=== PATIENT | female | born 1950 | race Caucasian/White ===

== ENCOUNTER 2022-03-19 16:47 | Inpatient (IN) ==
[2022-03-19] MEDS ORDERED: SODIUM CHLORIDE 0.9% 500 ML IV STA (17:27)
[2022-03-19] MEDS ORDERED: dilTIAZem HCl 5 MG/ML 5 ML VIAL IV STA ×2 (17:31→18:21)
--- NOTE | 2022-03-19 17:38 | Emergency Department Note ---
Impression & Plan Atrial flutter with rapid ventricular response, Left knee pain, Chest pain ED Provider Note NAME: SABI MATHEWS AGE: 71 SEX: F : 1950 ARRIVES VIA: Walk-In INFORMANT: Patient, ED PROVIDER(S): Stefano Soler DO CHIEF COMPLAINT: Palpitations HPI: The patient is a 71-year-old female who presented to the emergency department for an evaluation of palpitations.The patient states that she went to see her family doctor today because of left knee swelling and left knee pain. She was noted to have a high pulse rate and had an EKG done in the office. She was found to have significant tachycardia. Her family doctor called a tree expert to refer her to. She was sent home. She was called while she was at home and told to go directly to the emergency department for further evaluation rather than wait to see the tree expert. The patient denies having any chest pain or difficulty breathing. She denies having any abdominal pain or vomiting. She has had no recent weight loss. She has no history of cardiac dysrhythmia in the past. She has noticed that her left leg has been swollen. She has been trying to have this figured out for quite some time. She has a history of MS. She states the symptoms worsen with ambulation or movement. ROS: See above HPI for pertinent positives & negatives. A total of 10 systems reviewed and were otherwise negative. PAST MEDICAL HISTORY: See Below PAST SURGICAL HISTORY: See Below FAMILY HISTORY: See Below SOCIAL HISTORY: See Below HOME MEDICATIONS: See Below ALLERGIES: See Below VITALS: See Below PHYSICAL EXAMINATION: GENERAL: Patient is awake alert in no acute distress patient is resting comfortably and showing no signs of anxiety EYES: The conjunctivae are clear. The pupils are round and reactive. EARS, NOSE, MOUTH AND THROAT: The nose is without any evidence of any deformity. Mucous membranes are moist. Tongue is midline. NECK: The neck is nontender and supple. RESPIRATORY: Normal respiratory effort is noted there is no evidence of wheezing rhonchi or rales CARDIOVASCULAR: Tachycardic but regular heart sounds are noted auscultation. There is no definite murmur. GASTROINTESTINAL: The abdomen is soft. Abdomen is nontender. MUSCULOSKELETAL/EXTREMITIES: There is no evidence of gross deformity full range of motion is noted in the hips and shoulders. SKIN: There is tenderness noted throughout the left leg. There was pedal edema on the left leg. Pulses were symmetric in both feet. NEUROLOGIC: Patient is awake alert and oriented x3 MEDICAL DECISION MAKING: The patient is a 71-year-old female who presented to the emergency department for atrial fibrillation. She has no history of dysrhythmia. The patient was treated with IV fluids and IV Cardizem in the emergency department. She was also treated with IV heparin and IV magnesium. She was reevaluated multiple times. She did complain of chest discomfort at 1 point and an EKG was repeated. It did show new T wave versions. The patient did not have any significant hypoxia or shortness of breath but given her symptoms it was felt that she may benefit from IV heparin. I discussed the patient's laboratory and radiographic studies with her. I also discussed the diagnosis of atrial fibrillation with her and her significant other. She was feeling much better on subsequent reevaluation. I discussed her case with the on-call [facility]. They have agreed to evaluate the patient in the emergency department for further management and disposition. Triage Nursing notes reviewed. Prior medical records reviewed Vital Signs: reviewed and remarkable for elevated blood pressure and tachycardia. Differential diagnosis: Premature contractions, electrolyte abnormality, cardiac dysrhythmia, thyroid dysfunction, pulmonary embolism, infection, gastrointestinal, as well as other pathologies. ER treatment provided: See below Diagnostics interpreted by me: ECG: EKG was obtained in the emergency department. My interpretation is atrial flutter at 154 bpm. Some variability was noted with the beat to beat. There is diffuse ST segment depressions noted. No previous tracing was available for comparison. A second EKG was obtained in the emergency department. My interpretation is atrial flutter with variable block at 107 bpm. Nonspecific T wave abnormalities were noted anteriorly. This was compared to the earlier tracing. The T wave abnormalities are new compared to the earlier tracing. Cardiac Monitoring: An order was placed for continuous cardiac monitoring. The monitor shows a rate of 110 bpm with atrial fibrillation with RVR Laboratory studies: As stated above and show below. Imaging studies: See below Consultation(s): Discussed this case with Alyce who is on-call for the [facility] group. ED COURSE: Procedures: none Critical Care: I have personally spent greater than 55 minutes of critical care time in the direct management of this patient. This includes bedside care, interpretation of diagnostic studies, and testing, discussion with consultants, patient, and family members, and other required patient management activities. This 55 minutes is in excess of all separately billable procedures. Past Med/Surg History Medical History (Updated 03/19/22 @ 23:11 by Stefano Soler DO) High cholesterol Hypertension Major depression Multiple sclerosis Osteoporosis Surgical History (Updated 03/19/22 @ 20:40 by Alyce Jorge PA-C) History of breast implant History of colonoscopy History of shoulder surgery R total shoulder replacement Family History (Updated 03/19/22 @ 19:01 by Alyce Jorge PA-C) Mother Lung cancer Father , 59 [place] Myocardial infarction Sister , 40 Lung cancer Social History (Updated 03/19/22 @ 20:37 by Alyce Jorge PA-C) Smoking Status: Never smoker Hx Alcohol Use: Yes Alcohol type: wine Alcohol Intake Frequency: Monthly or Less Hx Substance Use: No Preferred Language: Lithuanian Folder And Notcher Required: No Beliefs That Will Affect Care: None marital status: Current Living Situation: Spouse current occupational status: retired Other Information That Helps Us Care for You: No Feels Safe at Home: Yes Safety Concerns: Feels Safe At This Time Assistive Devices: Cane and Contacts Allergies Allergies Allergy/AdvReac Type Severity Reaction Status Date / Time No Known Allergies Allergy Unverified 03/19/22 19:02 Home Meds Home Medications Medication Instructions Recorded Confirmed alendronate 70 mg tablet 70 mg PO VALENZUELA 03/19/22 03/19/22 aspirin 81 mg tablet,delayed 81 mg PO DAILY 03/19/22 03/19/22 release atorvastatin 10 mg tablet 10 mg PO Q2D 03/19/22 03/19/22 baclofen 10 mg tablet 10 mg PO BID PRN 03/19/22 03/19/22 hydrochlorothiazide 12.5 mg capsule 12.5 mg PO DAILY 03/19/22 03/19/22 lisinopril 30 mg tablet 30 mg PO DAILY 03/19/22 03/19/22 oxycodone-acetaminophen 5 mg-325 1 tab PO Q6H PRN 03/19/22 03/19/22 mg tablet sertraline 25 mg tablet 25 mg PO DAILY 03/19/22 03/19/22 Results & Data (ED) Vital Signs Vital Signs - 24 hr 03/19/22 17:04 03/19/22 17:30 03/19/22 17:35 Temperature 36.6 C Temperature Source Temporal Artery Scan Pulse Rate 161 H 159 H Pulse Rate [Apical] Pulse Rate from SpO2 Sensor Pulse Rhythm Regular Pulse Strength Normal Respiratory Rate 16 18 Respiratory Effort / Characteristics Non-Labored Respiratory Depth Normal Blood Pressure 141/92 H Blood Pressure [Right Arm] Blood Pressure Mean 108 Blood Pressure Mean [Right Arm] Pulse Oximetry 97 Oxygen Delivery Method Room Air Room Air Sepsis Recent Fever Within 48 Hours No Sepsis New/Unexplained Change in Mental Status N/A Sepsis Action Taken by Nursing No Action Required 03/19/22 17:39 03/19/22 18:00 03/19/22 18:13 Temperature Temperature Source Pulse Rate 149 H 106 H Pulse Rate [Apical] 120 H Pulse Rate from SpO2 Sensor Pulse Rhythm Pulse Strength Respiratory Rate 23 18 16 Respiratory Effort / Characteristics Respiratory Depth Blood Pressure 167/119 H Blood Pressure [Right Arm] 181/139 H Blood Pressure Mean 135 Blood Pressure Mean [Right Arm] 153 Pulse Oximetry 95 95 95 Oxygen Delivery Method Room Air Sepsis Recent Fever Within 48 Hours Sepsis New/Unexplained Change in Mental Status Sepsis Action Taken by Nursing 03/19/22 18:14 03/19/22 18:30 03/19/22 18:31 Temperature Temperature Source Pulse Rate 121 H 112 H Pulse Rate [Apical] Pulse Rate from SpO2 Sensor 123 H 119 H Pulse Rhythm Pulse Strength Respiratory Rate 15 18 Respiratory Effort / Characteristics Respiratory Depth Blood Pressure 181/139 H 158/98 H Blood Pressure [Right Arm] Blood Pressure Mean 153 118 Blood Pressure Mean [Right Arm] Pulse Oximetry 94 94 Oxygen Delivery Method Sepsis Recent Fever Within 48 Hours Sepsis New/Unexplained Change in Mental Status Sepsis Action Taken by Usp Medications Current Medication List: was personally reviewed by me Laboratory Data Attestation: I reviewed the patient's lab results. Result diagrams: 03/19/22 17:24 03/19/22 17:24 Lab Results 03/19/22 03/19/22 03/19/22 Range/Units 17:24 17:24 17:24 WBC 7.24 (4.8-10.8) K/uL RBC 4.65 (4.2-5.4) M/uL Hgb 14.0 (12.0-16.0) g/dL Hct 42.7 (37-47) % MCV 91.8 (80-100) fL MCH 30.1 (25-34) pg MCHC 32.8 (32-36) g/dL RDW Std Deviation 50.7 H (36.4-46.3) fL RDW Coeff of Michael 15.0 H (11.5-14.5) % Plt Count 348 (130-400) K/uL MPV 10.1 (7.4-10.4) fL Immature Gran % (Auto) 0.4 % Neut % (Auto) 57.1 % Lymph % (Auto) 26.4 % [place] % (Auto) 11.3 % Eos % (Auto) 4.1 % Baso % (Auto) 0.7 % Neut # (Auto) 4.13 (1.4-6.5) K/uL Lymph # (Auto) 1.91 (1.2-3.4) K/uL [place] # (Auto) 0.82 H (0.11-0.59) K/uL Eos # (Auto) 0.30 (0-0.5) K/uL Baso # (Auto) 0.05 (0-0.2) K/uL Immature Gran # (Auto) 0.03 H (0.00-0.02) K/uL ESR (0-30) mm/hr PT 11.1 (9.0-12.0) Seconds INR 1.0 (0.9-1.1) APTT 31.8 H (21.0-31.0) Seconds PTT Ratio 1.2 Sodium (136-145) mmol/L Potassium (3.5-5.1) mmol/L Chloride (98-107) mmol/L Carbon Dioxide (21-32) mmol/L Anion Gap (3-11) BUN (6-23) mg/dl Creatinine (0.6-1.2) mg/dl Est Cr Clr Drug Dosing ml/min Est GFR ( Amer) ml/min Est GFR (Non-Af Amer) ml/min BUN/Creatinine Ratio (10-20) Glucose (70-99(Fasting)) mg/dl Calcium (8.5-10.1) mg/dl Magnesium (1.7-2.4) mg/dl Total Bilirubin (0.2-1.0) mg/dl AST (13-39) U/L ALT (7-52) U/L Alkaline Phosphatase (34-104) U/L Troponin I High Sens 28.7 H (0-14) pg/ml Total Protein (6.0-8.3) gm/dl Albumin (3.4-5.0) gm/dl Globulin (2.5-4.0) gm/dl Albumin/Globulin Ratio (0.9-2) Lipase (11-82) U/L TSH (0.300-4.500) uIu/ml SARS-CoV-2, RNA, NAAT (NEGATIVE) 03/19/22 03/19/22 03/19/22 Range/Units 17:24 17:24 17:24 WBC (4.8-10.8) K/uL RBC (4.2-5.4) M/uL Hgb (12.0-16.0) g/dL Hct (37-47) % MCV (80-100) fL MCH (25-34) pg MCHC (32-36) g/dL RDW Std Deviation (36.4-46.3) fL RDW Coeff of Michael (11.5-14.5) % Plt Count (130-400) K/uL MPV (7.4-10.4) fL Immature Gran % (Auto) % Neut % (Auto) % Lymph % (Auto) % [place] % (Auto) % Eos % (Auto) % Baso % (Auto) % Neut # (Auto) (1.4-6.5) K/uL Lymph # (Auto) (1.2-3.4) K/uL [place] # (Auto) (0.11-0.59) K/uL Eos # (Auto) (0-0.5) K/uL Baso # (Auto) (0-0.2) K/uL Immature Gran # (Auto) (0.00-0.02) K/uL ESR 22 (0-30) mm/hr PT (9.0-12.0) Seconds INR (0.9-1.1) APTT (21.0-31.0) Seconds PTT Ratio Sodium 140 (136-145) mmol/L Potassium 3.9 (3.5-5.1) mmol/L Chloride 107 (98-107) mmol/L Carbon Dioxide 24 (21-32) mmol/L Anion Gap 9 (3-11) BUN 28 H (6-23) mg/dl Creatinine 0.79 (0.6-1.2) mg/dl Est Cr Clr Drug Dosing 73.4 ml/min Est GFR ( Amer) 88.5 ml/min Est GFR (Non-Af Amer) 76.4 ml/min BUN/Creatinine Ratio 35.4 H (10-20) Glucose 121 H (70-99(Fasting)) mg/dl Calcium 9.5 (8.5-10.1) mg/dl Magnesium 2.0 (1.7-2.4) mg/dl Total Bilirubin 0.6 (0.2-1.0) mg/dl AST 18 (13-39) U/L ALT 24 (7-52) U/L Alkaline Phosphatase 66 (34-104) U/L Troponin I High Sens (0-14) pg/ml Total Protein 7.1 (6.0-8.3) gm/dl Albumin 4.3 (3.4-5.0) gm/dl Globulin 2.8 (2.5-4.0) gm/dl Albumin/Globulin Ratio 1.5 (0.9-2) Lipase 11 (11-82) U/L TSH 4.426 (0.300-4.500) uIu/ml SARS-CoV-2, RNA, NAAT (NEGATIVE) 03/19/22 Range/Units 17:44 WBC (4.8-10.8) K/uL RBC (4.2-5.4) M/uL Hgb (12.0-16.0) g/dL Hct (37-47) % MCV (80-100) fL MCH (25-34) pg MCHC (32-36) g/dL RDW Std Deviation (36.4-46.3) fL RDW Coeff of Michael (11.5-14.5) % Plt Count (130-400) K/uL MPV (7.4-10.4) fL Immature Gran % (Auto) % Neut % (Auto) % Lymph % (Auto) % [place] % (Auto) % Eos % (Auto) % Baso % (Auto) % Neut # (Auto) (1.4-6.5) K/uL Lymph # (Auto) (1.2-3.4) K/uL [place] # (Auto) (0.11-0.59) K/uL Eos # (Auto) (0-0.5) K/uL Baso # (Auto) (0-0.2) K/uL Immature Gran # (Auto) (0.00-0.02) K/uL ESR (0-30) mm/hr PT (9.0-12.0) Seconds INR (0.9-1.1) APTT (21.0-31.0) Seconds PTT Ratio Sodium (136-145) mmol/L Potassium (3.5-5.1) mmol/L Chloride (98-107) mmol/L Carbon Dioxide (21-32) mmol/L Anion Gap (3-11) BUN (6-23) mg/dl Creatinine (0.6-1.2) mg/dl Est Cr Clr Drug Dosing ml/min Est GFR ( Amer) ml/min Est GFR (Non-Af Amer) ml/min BUN/Creatinine Ratio (10-20) Glucose (70-99(Fasting)) mg/dl Calcium (8.5-10.1) mg/dl Magnesium (1.7-2.4) mg/dl Total Bilirubin (0.2-1.0) mg/dl AST (13-39) U/L ALT (7-52) U/L Alkaline Phosphatase (34-104) U/L Troponin I High Sens (0-14) pg/ml Total Protein (6.0-8.3) gm/dl Albumin (3.4-5.0) gm/dl Globulin (2.5-4.0) gm/dl Albumin/Globulin Ratio (0.9-2) Lipase (11-82) U/L TSH (0.300-4.500) uIu/ml SARS-CoV-2, RNA, NAAT NEGATIVE (NEGATIVE) Administered Medications Heparin Sodium/Dextrose (Heparin Sodium/Dextrose) 25,000 units in 500 mls @ 25 mls/hr IV .Q20H [facility]; Protocol Stop: 04/18/22 18:59 Last Admin: 03/19/22 20:30 Dose: 850 units/hr, 17 mls/hr Documented by: [id number] Cosigned by: [id number] Metoprolol Tartrate (Metoprolol Tartrate 1 Mg/Ml Vial) 5 mg IV Q4 PRN PRN Reason: tachycardia Stop: 04/18/22 21:46 Last Admin: 03/19/22 22:06 Dose: 5 mg Documented by: [id number] Discontinued Medications Aspirin (Aspirin Chew 324 Mg) 324 mg PO NOW STA Stop: 03/19/22 18:01 Last Admin: 03/19/22 18:06 Dose: 324 mg Documented by: [id number] Diltiazem HCl (Diltiazem Hcl 5 Mg/Ml 5 Ml Vial) 10 mg IV NOW STA Stop: 03/19/22 17:32 Last Admin: 03/19/22 17:39 Dose: 10 mg Documented by: [id number] Cosigned by: [id number] Diltiazem HCl (Diltiazem Hcl 5 Mg/Ml 5 Ml Vial) 10 mg IV NOW STA Stop: 03/19/22 18:22 Last Admin: 03/19/22 18:45 Dose: 10 mg Documented by: [id number] Cosigned by: [id number] Heparin Sodium/Dextrose (Heparin Iv Adult Wt-Based Standard *No* Bolus Protocol) 1 ea N/A ONE ONE; Protocol Stop: 03/19/22 18:45 Last Admin: 03/19/22 20:30 Dose: 1 ea Documented by: [id number] Sodium Chloride (Nss) 500 mls @ 999 mls/hr IV .Q31M STA Stop: 03/19/22 17:57 Last Infusion: 03/19/22 18:14 Dose: 0 mls/hr Documented by: [id number] Admin: 03/19/22 17:39 Dose: 999 mls/hr Documented by: [id number] Magnesium Sulfate/Dextrose (Magnesium Sulfate / D5w) 1 gm in 100 mls @ 100 mls/hr IV NOW STA Stop: 03/19/22 19:00 Last Infusion: 03/19/22 20:00 Dose: 0 mls/hr Documented by: [id number] Admin: 03/19/22 18:06 Dose: 100 mls/hr Documented by: [id number] Sodium Chloride (Nss 1000ml) 500 mls @ 999 mls/hr IV .Q31M ONE Stop: 03/19/22 18:51 Last Infusion: 03/19/22 20:38 Dose: 0 mls/hr Documented by: [id number] Admin: 03/19/22 18:45 Dose: 999 mls/hr Documented by: [id number] Metoprolol Tartrate (Metoprolol Tartrate 25 Mg Tab) 25 mg PO NOW STA Stop: 03/19/22 21:10 Last Admin: 03/19/22 21:27 Dose: 25 mg Documented by: [id number] Metoprolol Tartrate (Metoprolol Tartrate 1 Mg/Ml Vial) Confirm Administered Dose 5 mg IV .STK-MED ONE Stop: 03/19/22 22:01 Last Admin: 03/19/22 22:11 Dose: Not Given Documented by: [id number] Metoprolol Tartrate (Metoprolol Tartrate 1 Mg/Ml Vial) 5 mg IV NOW STA Stop: 03/19/22 22:41 Last Admin: 03/19/22 22:47 Dose: 5 mg Documented by: [id number] Imaging Data Radiologist's Impression: Chest X-Ray 03/19/22 17:10 XR chest 1V portable CLINICAL HISTORY: Atypical chest pain TECHNIQUE: Single frontal radiograph of the chest was obtained. Comparison: None available at the time of this dictation. FINDINGS: Bilateral breast implants are seen. Partial visualization of a right shoulder arthroplasty. The cardiomediastinal silhouette is normal. The lungs are clear. No evidence of pleural effusion or pneumothorax. IMPRESSION: No acute chest disease. ACT 112: Negative or not required by law. Electronically signed by: Flo Dunaway M.D. 03/19/2022 5:49 PM Venous Doppler Study 03/19/22 17:28 US venous doppler LE LT CLINICAL HISTORY: Swelling TECHNIQUE: Left lower extremity real-time compression venous ultrasound with Color Doppler imaging. Utilizing real-time ultrasonic imaging multiple real time high-resolution ultrasonic images with compression and noncompression maneuvers of the deep venous system in addition to color doppler imaging were performed from the common femoral vein through the proximal calf veins. COMPARISON: None available at the time of this dictation. FINDINGS: Currently there is normal compressibility of the deep venous system from the common femoral vein through the proximal calf veins. No current evidence of acute thrombosis is identified. Partially visualized is a joint effusion in the left medial knee. Impression: No evidence of deep venous thrombus. ACT 112: Negative or not required by law. Electronically signed by: Flo Dunaway M.D. 03/19/2022 8:11 PM Discharge Plan Visit Data Chief Complaint: Cardiac Assessment Stated Complaint: REF FROM [facility], KNEE PAIN ED Provider: Stefano Soler Discharge Problem: Atrial flutter with rapid ventricular response, Left knee pain, Chest pain Patient Disposition: Admitted As Inpatient Discharge Instructions Interventions: ED Discharge Assessment Last Done: 03/19/22 21:40
[2022-03-19 17:46] LABS: Basophils # (auto) 0.05 K/uL (0-0.2); Basophils % (auto) 0.7 %; Eosinophils % (auto) 4.1 %; Hematocrit (blood only) 42.7 % (37-47); Immature Granulocytes # (auto) 0.03 K/uL (0.00-0.02); Immature Granulocytes % (auto) 0.4 %; Lymphocytes # (auto) 1.91 K/uL (1.2-3.4); Lymphocytes % (auto) 26.4 %; Mean Corpuscular Hemoglobin 30.1 pg (25-34); Mean Corpuscular Hgb Conc 32.8 g/dL (32-36); Mean Corpuscular Volume 91.8 fL (80-100); Mean Platelet Volume 10.1 fL (7.4-10.4); Monocytes # (auto) 0.82 K/uL (0.11-0.59); Monocytes % (auto) 11.3 %; Neutrophils # (auto) 4.13 K/uL (1.4-6.5); Neutrophils % (auto) 57.1 %; Platelet Count 348 K/uL (130-400); RDW Standard Deviation 50.7 fL (36.4-46.3); Red Blood Count 4.65 M/uL (4.2-5.4); White Blood Count 7.24 K/uL (4.8-10.8)
--- NOTE | 2022-03-19 17:50 | XRay Report ---
XR chest 1V portable CLINICAL HISTORY: Atypical chest pain TECHNIQUE: Single frontal radiograph of the chest was obtained. Comparison: None available at the time of this dictation. FINDINGS: Bilateral breast implants are seen. Partial visualization of a right shoulder arthroplasty. The cardi omediastinal silhouette is normal. The lungs are clear. No evidence of pleural effusion or pneumothor ax. IMPRESSION: No acute chest disease. ACT 112: Negative or not required by law. Electronically signed by: Flo Dunaway M.D. 03/19/2022 5:49 PM
[2022-03-19] MEDS ORDERED: ASPIRIN CHEW 324 MG PO STA (18:00)
[2022-03-19] MEDS ORDERED: MAGNESIUM SULFATE / D5W 1 GM/100 ML BAG IV STA (18:01)
[2022-03-19 18:10] LABS: Partial Thromboplastin Ratio 1.2; Partial Thromboplastin Time 31.8 Seconds (21.0-31.0); Prothrombin Time 11.1 Seconds (9.0-12.0)
[2022-03-19 18:15] LABS: Albumin Globulin Ratio 1.5 (0.9-2); Albumin Level 4.3 gm/dl (3.4-5.0); BUN Creatinine Ratio 35.4 (10-20); Bilirubin,Total 0.6 mg/dl (0.2-1.0); Calcium 9.5 mg/dl (8.5-10.1); Creatinine Clr Calc Pharmacy 73.4 ml/min; Est GFR (African American) 88.5 ml/min; Est GFR (Non-African American) 76.4 ml/min; Globulin 2.8 gm/dl (2.5-4.0); Potassium 3.9 mmol/L (3.5-5.1); Total Protein 7.1 gm/dl (6.0-8.3)
[2022-03-19] MEDS ORDERED: SODIUM CHLORIDE 0.9% 1000ML 500 ML IV ONE (18:21)
[2022-03-19] MEDS ORDERED: Heparin IV Adult Wt-Based Standard *NO* Bolus Protocol ONE (18:44)
--- NOTE | 2022-03-19 20:12 | Ultrasound Report ---
US venous doppler LE LT CLINICAL HISTORY: Swelling TECHNIQUE: Left lower extremity real-time compression venous ultrasound with Color Doppler imaging. U tilizing real-time ultrasonic imaging multiple real time high-resolution ultrasonic images with compr ession and noncompression maneuvers of the deep venous system in addition to color doppler imaging we re performed from the common femoral vein through the proximal calf veins. COMPARISON: None available at the time of this dictation. FINDINGS: Currently there is normal compressibility of the deep venous system from the common femoral vein thro ugh the proximal calf veins. No current evidence of acute thrombosis is identified. Partially visuali zed is a joint effusion in the left medial knee. Impression: No evidence of deep venous thrombus. ACT 112: Negative or not required by law. Electronically signed by: Flo Dunaway M.D. 03/19/2022 8:11 PM
[2022-03-19] MEDS: HEPARIN SODIUM/DEXTROSE 25,000 UNITS/500 ML BAG IV SCH (20:30)
--- NOTE | 2022-03-19 20:34 | XRay Report ---
XR knee LT 1 or 2V routine CLINICAL HISTORY: swelling, pain TECHNIQUE: 2 views of the left knee were obtained. Comparison: None available at the time of this dictation. FINDINGS: There is no evidence of an acute fracture. Degenerative changes are seen most pronounced in the dunbar lofemoral compartment. A small suprapatellar effusion is seen. No soft tissue abnormality is seen. IMPRESSION: Degenerative changes and joint effusion without evidence of acute abnormality. ACT 112: Negative or not required by law. Electronically signed by: Flo Dunaway M.D. 03/19/2022 8:33 PM
--- NOTE | 2022-03-19 20:45 | History & Physical Report ---
Date of Service March 19, 2022 Assessment & Plan (1) Atrial flutter with rapid ventricular response: (2) Left knee pain: (3) Polyarthralgia: (4) Hypertension: (5) High cholesterol: (6) Multiple sclerosis: Plan: This is a 71-year-old female who has significant past medical history of HTN, HLD, multiple sclerosis in remission, depression, ADD who presents to ED secondary to being referred to her PCP due to atrial fibrillation. Atrial flutter with RVR Elevated troponin Admit to PCU Heparin drip initiated in ED, will continue for now Metoprolol tartrate 25mg q8hr Cycle troponins, patient without chest pain, EKG did demonstrate diffuse T wave inversions Cycle EKGs Echocardiogram in a.m. TSH WNL Consult cardiology Left knee pain Polyarthralgia Obtain x-ray left knee Venous duplex pending Obtain ESR, CRP, RF, ELVA Tick panel pending in [facility] ice tid, voltaren gel may need ortho or rheum referral Multiple sclerosis Intermission, not receiving treatment Recently reestablished with neurology at [facility] Depression ADD Continue Zoloft Patient previously was on Adderall, this was discontinued today due to finding of atrial flutter DVT ppx: Heparin gtt Dispo: PCU PCP: Nohemi FULL CODE Pt was seen and examined in collaboration with Dr. Locke, please see addendum History of Present Illness Chief Complaint: Referred by PCP secondary to atrial fibrillation. Primary Care Provider: Bess Song, DO This is a 71-year-old female who has significant past medical history of HTN, HLD, multiple sclerosis in remission, depression, ADD who presents to ED secondary to being referred to her PCP due to atrial fibrillation. The patient was seen in clinic today by PCP secondary to left knee pain. She states she has been having worsening left knee pain for the past 2 weeks. This is required her to walk with a cane. She denies any redness or swelling to left knee. When presenting to PCPs office they found her to be tachycardic. EKG was performed which revealed atrial fibrillation/flutter. Initially she was prescribed metoprolol tartrate as well as Eliquis. Plan was to set patient up for outpatient cardiology evaluation. Due to rapid ventricular rate they opted to send her to ED instead. She states over the past 2 to 3 months she has felt generally unwell. She complains of polymyalgias and shoulders, wrists and left knee. She also complains of generalized myalgias as well as shoulder and hip girdle weakness. Again she is ambulating with a cane due to left knee pain. There is no trauma or former injury to left knee. Denies being diagnosed with arthritis. Denies any tick bites. PCPs office did perform Lyme, Anaplasma and babesiosis panel. She also admits to dyspnea on exertion. She states even making the bed causes her to get out of breath and she has to take a break. This is new for her in the last 2 to 3 months. She denies any recent illness, fever, chills, sweats, lightheadedness, dizziness, syncope, chest pain, palpitations, nausea, vomiting, abdominal pain, change in her bowel or urinary habits. In ED patient remained hemodynamically stable although she was significantly tachycardic. She was also hypertensive, but during my evaluation I switched blood pressure cuffs to a larger cuff and her blood pressure was 145/82. She did receive 10 mg of IV diltiazem which did bring her heart rates from the 150s down to the low 100s. She was also started on heparin drip. She does have family history of CAD in her father who is of a fatal [place] at age 59. She states he was an avid smoker and alcohol user. Her brother has history of hypertension. Allergies Allergy/AdvReac Type Severity Reaction Status Date / Time No Known Allergies Allergy Unverified 03/19/22 19:02 Home Medications Medication Instructions Recorded Confirmed Type alendronate 70 mg tablet 70 mg PO VALENZUELA 03/19/22 03/19/22 History aspirin 81 mg tablet,delayed 81 mg PO DAILY 03/19/22 03/19/22 History release atorvastatin 10 mg tablet 10 mg PO Q2D 03/19/22 03/19/22 History baclofen 10 mg tablet 10 mg PO BID PRN 03/19/22 03/19/22 History hydrochlorothiazide 12.5 mg capsule 12.5 mg PO DAILY 03/19/22 03/19/22 History lisinopril 30 mg tablet 30 mg PO DAILY 03/19/22 03/19/22 History oxycodone-acetaminophen 5 mg-325 1 tab PO Q6H PRN 03/19/22 03/19/22 History mg tablet sertraline 25 mg tablet 25 mg PO DAILY 03/19/22 03/19/22 History Past Med/Surg History Medical History (Updated 03/19/22 @ 20:40 by Alyce Jorge PA-C) High cholesterol Hypertension Major depression Multiple sclerosis Osteoporosis Surgical History (Updated 03/19/22 @ 20:40 by Alyce Jorge PA-C) History of breast implant History of colonoscopy History of shoulder surgery R total shoulder replacement Family History (Updated 03/19/22 @ 19:01 by Alyce Jorge PA-C) Mother Lung cancer Father , 59 [place] Myocardial infarction Sister , 40 Lung cancer Social History (Updated 03/19/22 @ 20:37 by Alyce Jorge PA-C) Smoking Status: Never smoker Hx Alcohol Use: Yes Alcohol Intake Frequency: Monthly or Less Hx Substance Use: No Preferred Language: Libyan marital status: Current Living Situation: Spouse current occupational status: retired Feels Safe at Home: Yes Review of Systems Review of Systems: All systems reviewed & are unremarkable except as noted in HPI & below Physical Exam Physical Exam: Constitutional: WD/WN, vitals as above, NAD, sitting up in bed, pleasant, conversing easily Head: Normocephalic, Atraumatic Eyes: PERRL, conjunctivae normal, anicteric sclerae ENMT: external ear and nose normal, oropharynx normal Neck: trachea midline, no thyromegaly normal visual inspection Respiratory: normal respiratory effort, lungs clear to auscultation, no wheeze, rales, rhonchi. Normal insp/exp effort, no accessory muscle use Cardiovascular: Irregular rate, irregular rhythm, no murmur, no edema Vessels: no JVD or carotid bruit Chest: normal inspection of chest Abdomen: normal bowel sounds, soft, nontender, no hepatosplenomegaly Musculoskeletal: no cyanosis or clubbing, extremities motor strength 5/5, left knee edematous, but not erythematous or warm Skin: no rashes, warm and dry normal turgor Neurologic: PERRL, EOMI, accommodation nl, no face palsy, no dysarthria CN's II-XI intact bilaterally and moves all extremities Psychiatric: A+Ox3, euthymic affect Lymphatic: no cervical or axillary lymphadenopathy : deferred Results & Data Results & Data ([facility]) Vital Signs (Past 12 Hours) Vital Signs Temp Pulse Pulse Resp BP BP Pulse Ox 03/19/22 18:13 120 H 16 181/139 H 95 03/19/22 18:00 106 H 18 95 03/19/22 17:39 149 H 23 167/119 H 95 03/19/22 17:35 159 H 18 03/19/22 17:04 36.6 C 161 H 16 141/92 H 97 Diagnostic Findings Chest X-Ray 03/19/22 17:10 XR chest 1V portable CLINICAL HISTORY: Atypical chest pain TECHNIQUE: Single frontal radiograph of the chest was obtained. Comparison: None available at the time of this dictation. FINDINGS: Bilateral breast implants are seen. Partial visualization of a right shoulder arthroplasty. The cardiomediastinal silhouette is normal. The lungs are clear. No evidence of pleural effusion or pneumothorax. IMPRESSION: No acute chest disease. ACT 112: Negative or not required by law. Electronically signed by: Flo Dunaway M.D. 03/19/2022 5:49 PM Venous Doppler Study 03/19/22 17:28 US venous doppler LE LT CLINICAL HISTORY: Swelling TECHNIQUE: Left lower extremity real-time compression venous ultrasound with Color Doppler imaging. Utilizing real-time ultrasonic imaging multiple real time high-resolution ultrasonic images with compression and noncompression maneuvers of the deep venous system in addition to color doppler imaging were performed from the common femoral vein through the proximal calf veins. COMPARISON: None available at the time of this dictation. FINDINGS: Currently there is normal compressibility of the deep venous system from the common femoral vein through the proximal calf veins. No current evidence of acute thrombosis is identified. Partially visualized is a joint effusion in the left medial knee. Impression: No evidence of deep venous thrombus. ACT 112: Negative or not required by law. Electronically signed by: Flo Dunaway M.D. 03/19/2022 8:11 PM Knee X-Ray 03/19/22 19:24 XR knee LT 1 or 2V routine CLINICAL HISTORY: swelling, pain TECHNIQUE: 2 views of the left knee were obtained. Comparison: None available at the time of this dictation. FINDINGS: There is no evidence of an acute fracture. Degenerative changes are seen most pronounced in the patellofemoral compartment. A small suprapatellar effusion is seen. No soft tissue abnormality is seen. IMPRESSION: Degenerative changes and joint effusion without evidence of acute abnormality. ACT 112: Negative or not required by law. Electronically signed by: Flo Dunaway M.D. 03/19/2022 8:33 PM Medications Administered Medication List Heparin Sodium/Dextrose (Heparin Sodium/Dextrose) 25,000 units in 500 mls @ 0.02 mls/hr IV .Q24H [facility]; Protocol Stop: 04/18/22 18:59 Last Admin: 03/19/22 20:30 Dose: 850 units/hr, 17 mls/hr Documented by: [id number] Cosigned by: [id number] Discontinued Medications Aspirin (Aspirin Chew 324 Mg) 324 mg PO NOW STA Stop: 03/19/22 18:01 Last Admin: 03/19/22 18:06 Dose: 324 mg Documented by: [id number] Diltiazem HCl (Diltiazem Hcl 5 Mg/Ml 5 Ml Vial) 10 mg IV NOW STA Stop: 03/19/22 17:32 Last Admin: 03/19/22 17:39 Dose: 10 mg Documented by: [id number] Cosigned by: [id number] Diltiazem HCl (Diltiazem Hcl 5 Mg/Ml 5 Ml Vial) 10 mg IV NOW STA Stop: 03/19/22 18:22 Last Admin: 03/19/22 18:45 Dose: 10 mg Documented by: [id number] Cosigned by: [id number] Heparin Sodium/Dextrose (Heparin Iv Adult Wt-Based Standard *No* Bolus Protocol) 1 ea N/A ONE ONE; Protocol Stop: 03/19/22 18:45 Last Admin: 03/19/22 20:30 Dose: 1 ea Documented by: [id number] Sodium Chloride (Nss) 500 mls @ 999 mls/hr IV .Q31M STA Stop: 03/19/22 17:57 Last Infusion: 03/19/22 18:14 Dose: 0 mls/hr Documented by: [id number] Admin: 03/19/22 17:39 Dose: 999 mls/hr Documented by: [id number] Magnesium Sulfate/Dextrose (Magnesium Sulfate / D5w) 1 gm in 100 mls @ 100 mls/hr IV NOW STA Stop: 03/19/22 19:00 Last Infusion: 03/19/22 20:00 Dose: 0 mls/hr Documented by: [id number] Admin: 03/19/22 18:06 Dose: 100 mls/hr Documented by: [id number] Sodium Chloride (Nss 1000ml) 500 mls @ 999 mls/hr IV .Q31M ONE Stop: 03/19/22 18:51 Last Infusion: 03/19/22 20:38 Dose: 0 mls/hr Documented by: [id number] Admin: 03/19/22 18:45 Dose: 999 mls/hr Documented by: [id number] ECG Rate (beats per minute): 107 Rhythm: atrial flutter Findings: + prolonged QT COVID-19 Results Results COVID-19 Adm Lab Results: RBC 4.65 M/uL (4.2-5.4) 03/19/22 WBC 7.24 K/uL (4.8-10.8) 03/19/22 Hgb 14.0 g/dL (12.0-16.0) 03/19/22 Hct 42.7 % (37-47) 03/19/22 Plt Count 348 K/uL (130-400) 03/19/22 Neutrophils (%) (Auto) 57.1 % 03/19/22 Lymphocytes (%) (Auto) 26.4 % 03/19/22 Monocytes # (Auto) 0.82 K/uL (0.11-0.59) H 03/19/22 Eosinophils # (Auto) 0.30 K/uL (0-0.5) 03/19/22 Immature Granulocyte % (Auto) 0.4 % 03/19/22 Neutrophils # (Auto) 4.13 K/uL (1.4-6.5) 03/19/22 Lymphocytes # (Auto) 1.91 K/uL (1.2-3.4) 03/19/22 Monocytes # (Auto) 0.82 K/uL (0.11-0.59) H 03/19/22 Eosinophils # (Auto) 0.30 K/uL (0-0.5) 03/19/22 Basophils # (Auto) 0.05 K/uL (0-0.2) 03/19/22 Immature Granulocyte # (Auto) 0.03 K/uL (0.00-0.02) H 03/19/22 Na 140 mmol/L (136-145) 03/19/22 K 3.9 mmol/L (3.5-5.1) 03/19/22 Cl 107 mmol/L (98-107) 03/19/22 CO2 24 mmol/L (21-32) 03/19/22 Anion Gap 9 (3-11) 03/19/22 BUN 28 mg/dl (6-23) H 03/19/22 Creatinine 0.79 mg/dl (0.6-1.2) 03/19/22 BUN/Creatinine Ratio 35.4 (10-20) H 03/19/22 Glucose Level 121 mg/dl (70-99(Fasting)) H 03/19/22 Ca 9.5 mg/dl (8.5-10.1) 03/19/22 Total Bilirubin 0.6 mg/dl (0.2-1.0) 03/19/22 AST/SGOT 18 U/L (13-39) 03/19/22 ALT/SGPT 24 U/L (7-52) 03/19/22 Alkaline Phosphatase 66 U/L (34-104) 03/19/22 Total Protein 7.1 gm/dl (6.0-8.3) 03/19/22 Albumin 4.3 gm/dl (3.4-5.0) 03/19/22 Globulin 2.8 gm/dl (2.5-4.0) 03/19/22 Albumin/Globulin Ratio 1.5 (0.9-2) 03/19/22 PTT 31.8 Seconds (21.0-31.0) H 03/19/22 INR 1.0 (0.9-1.1) 03/19/22 SARS-CoV-2, RNA, NAAT NEGATIVE (NEGATIVE) 03/19/22 Chest X-Ray 03/19/22 Code Status & VTE Plan Code Status FULL CODE VTE Prophylaxis Plan VTE Prophylaxis will be ordered: No Supervising Physician Co-Signing Physician Notes Patient was seen and examined at bedside. Chart reviewed, case discussed with Alyce BERGER and agree with her documentation. In summary, this is a 71 year old female who presented to the PCP today for left knee pain and was found to be atrial flutter with RVR and sent to the ED for evaluation. In the ED, she was afebrile, hemodynamically stable, a flutter with RVR. AAOx3, comfortably lying in bed, on room air, chest clear, tachycardic, abdomen benign, no edema. Left knee with some effusion but no cellulitis. Labs reviewed. Electrolytes normal, WBC normal, TSH normal, trop mildly elevated. CXR clear. Given iv diltiazem 10 mgx2 in ED and started on heparin drip. Will admit to PCU on tele. Will start on lopressor 25 mg q8hr. continue heparin drip. Trend trop. check echo. Cardio consult for possible STARR guided cardioversion. As for left knee pain, no DVT but xray shows arthritis with effusion- recommended OP ortho or rheum evaluation for aspiration and further work up. Rest per note above.
[2022-03-19] MEDS ORDERED: METOPROLOL TARTRATE 25 MG TAB PO STA (21:09)
[2022-03-19] MEDS ORDERED: BACLOFEN 10 MG TAB PO PRN (21:47)
[2022-03-19] MEDS ORDERED: MAGNESIUM HYDROXIDE SUSP 30 ML UDC PO PRN (21:47)
[2022-03-19] MEDS ORDERED: oxyCODONE/ACETAMINOPHEN 5mg/325mg TAB PO PRN (21:47)
[2022-03-19] MEDS ORDERED: ALUMINUM/MAGNESIUM SUSP 30 ML UDC PO PRN (21:47)
[2022-03-19] MEDS ORDERED: POLYETHYLENE (MIRALAX) 17 GM PACK PO PRN (21:47)
[2022-03-19] MEDS ORDERED: ACETAMINOPHEN 325 MG TAB PO PRN (21:47)
[2022-03-19 21:54] LABS: C Reactive Protein 0.96 mg/dl (0-0.5)
[2022-03-19] MEDS ORDERED: METOPROLOL TARTRATE 1 MG/ML VIAL IV ONE (22:00)
[2022-03-19 22:01] LABS: Troponin I High Sensitivity 30.1 pg/ml (0-14)
[2022-03-19] MEDS: METOPROLOL TARTRATE 1 MG/ML VIAL IV PRN (22:06)
[2022-03-19] MEDS ORDERED: METOPROLOL TARTRATE 1 MG/ML VIAL IV STA (22:40)
[2022-03-20 02:36] LABS: Albumin Globulin Ratio 1.5 (0.9-2); Albumin Level 3.7 gm/dl (3.4-5.0); BUN Creatinine Ratio 38.2 (10-20); Bilirubin,Total 0.5 mg/dl (0.2-1.0); Calcium 8.8 mg/dl (8.5-10.1); Chol HDL Ratio 2.9 (0-5); Creatinine Clr Calc Pharmacy 85.9 ml/min; Est GFR (African American) 103.4 ml/min; Est GFR (Non-African American) 89.2 ml/min; Globulin 2.5 gm/dl (2.5-4.0); Magnesium 2.2 mg/dl (1.7-2.4); Potassium 3.4 mmol/L (3.5-5.1); Total Protein 6.2 gm/dl (6.0-8.3)
[2022-03-20 02:45] LABS: Basophils # (auto) 0.04 K/uL (0-0.2); Basophils % (auto) 0.5 %; Eosinophils # (auto) 0.38 K/uL (0-0.5); Eosinophils % (auto) 5.2 %; Hematocrit (blood only) 39.1 % (37-47); Hemoglobin 12.9 g/dL (12.0-16.0); Immature Granulocytes # (auto) 0.02 K/uL (0.00-0.02); Immature Granulocytes % (auto) 0.3 %; Lymphocytes # (auto) 2.41 K/uL (1.2-3.4); Lymphocytes % (auto) 32.7 %; Mean Platelet Volume 10.3 fL (7.4-10.4); Monocytes % (auto) 9.5 %; Neutrophils # (auto) 3.82 K/uL (1.4-6.5); Neutrophils % (auto) 51.8 %; Platelet Count 313 K/uL (130-400); RDW Standard Deviation 50.9 fL (36.4-46.3); Red Blood Count 4.16 M/uL (4.2-5.4); White Blood Count 7.37 K/uL (4.8-10.8)
[2022-03-20 02:47] LABS: Partial Thromboplastin Ratio 1.7
[2022-03-20 02:58] LABS: Troponin I High Sensitivity 23.3 pg/ml (0-14)
[2022-03-20 03:00] LABS: Partial Thromboplastin Time 46.7 Seconds (21.0-31.0)
[2022-03-20] MEDS ORDERED: METOPROLOL TARTRATE 25 MG TAB PO SCH (07:00)
[2022-03-20 07:57] LABS: Estimated Average Glucose 126 mg/dl
[2022-03-20 08:26] LABS: Partial Thromboplastin Ratio 1.8
[2022-03-20 08:34] LABS: Partial Thromboplastin Time 48.4 Seconds (21.0-31.0)
[2022-03-20] MEDS ORDERED: POTASSIUM CHLORIDE CRTAB 20 MEQ TABCR PO STA (08:46)
[2022-03-20] MEDS ORDERED: hydroCHLOROthiazide 25 MG TAB PO SCH (09:00)
[2022-03-20] MEDS ORDERED: lisinopril 10 MG TAB PO SCH (09:00)
[2022-03-20] MEDS: SERTRALINE HCL 50 MG TABLET PO SCH (09:06)
--- NOTE | 2022-03-20 10:03 | Cardiology Consultation ---
Date of Consultation March 20, 2022 Assessment & Plan (1) Typical atrial flutter: (2) Cardiomyopathy: (3) Systolic dysfunction: (4) Elevated troponin: New onset symptomatic atrial flutter with a rapid ventricular response of unknown duration (suspect weeks to months) New onset systolic dysfunction with EF 25 to 30%, of unknown duration and etiology, likely tachycardia induced Narrow QRS duration Minimally elevated high-sensitivity troponin Hypertension Dyslipidemia Family history of ischemic heart disease (father with an [place] at 59) Titrate beta-ed dosing for heart rate control, switching to metoprolol succinate No diltiazem Heparin anticoagulation, eventually switching to Eliquis Discontinue HCTZ Start oral furosemide, considering adding spironolactone if hypokalemic. Decrease lisinopril dosing to allow for the above. If unable to control rate and/or not well tolerated, STARR guided cardioversion Eventual ischemic evaluation, Lexiscan versus catheterization Supervising Physician Co-Signing Physician Notes Patient was seen and personally examined. She presents now notable multiple symptoms over the last 1 to 2 months of malaise aches diminished exercise tolerance. Was noted on recent clinic visit to have elevated heart rate and EKG reflected newly observed atrial flutter will likely at least 1 months duration on review of records. Echocardiogram today demonstrates diffuse LV dysfunction question tachycardia mediated Patient had not been aware of any tachypalpitations. Denies any prior history of cardiac disease or arrhythmia. Previously on Adderall but not currently using Plan as outlined above initiate rate controlling initially with metoprolol succinate. With titration upward as blood pressure allows. Anticoagulation to be initiated with heparin and likely transition to Eliquis Mild diuresis Continue lisinopril. Patient may warrant STARR guided cardioversion if rate control not manifested. Will also require an ischemic work-up either stress testing versus diagnostic coronary angiography depending on clinical course. Patient not severely symptomatic currently plan outlined in detail History of Present Illness Reason for Consultation: Atrial flutter Requesting Physician: Jose Attending Physician: Megan History of Present Illness Mrs. Jo López is a very pleasant 71 year old female who presented to her PCP's office on 03/19/2022 for evaluation of left knee pain that has required her to walk with a cane. Elevated heart rate on intake lead to an EKG revealing new onset typical atrial flutter with a rapid ventricular response. Adderall discontinued. She was referred initially to Cardiology then to the ER. EKG on presentation revealed atrial flutter with a ventricular rate of 154 bpm. High- sensitivity troponin minimally elevated at 28.7, 30.1, 23.3, 21.5 pg/mL. Resting echocardiography on March 20, 2022 revealed severe global hypokinesis of the left ventricle, new onset systolic dysfunction of unknown duration, ejection fraction 25 to 30%. Patient notes being asymptomatic until today. Today, she has noted losing her breath when talking too much as well as some bandlike tightness under her breasts bilaterally. Past Medical and Surgical History Multiple sclerosis diagnosed 40 years ago, in remission Hypertension Dyslipidemia Depression ADHD, on Adderall until 03/19/2022 Right shoulder surgery in June 2021 Breast augmentation Family History: Father with an [place] at 59. Mother with lung cancer. Sister with lung cancer. Brother is alive with hypertension. Social History: Non-smoker. Alcohol: 1 to 2 glasses of wine per day. No illegal drug use. . 2 grown children. Allergies Allergy/AdvReac Type Severity Reaction Status Date / Time No Known Allergies Allergy Unverified 03/19/22 19:02 Home Medications Medication Instructions Recorded Confirmed Type alendronate 70 mg tablet 70 mg PO VALENZUELA 03/19/22 03/19/22 History aspirin 81 mg tablet,delayed 81 mg PO DAILY 03/19/22 03/19/22 History release atorvastatin 10 mg tablet 10 mg PO Q2D 03/19/22 03/19/22 History baclofen 10 mg tablet 10 mg PO BID PRN 03/19/22 03/19/22 History hydrochlorothiazide 12.5 mg capsule 12.5 mg PO DAILY 03/19/22 03/19/22 History lisinopril 30 mg tablet 30 mg PO DAILY 03/19/22 03/19/22 History oxycodone-acetaminophen 5 mg-325 1 tab PO Q6H PRN 03/19/22 03/19/22 History mg tablet sertraline 25 mg tablet 25 mg PO DAILY 03/19/22 03/19/22 History Patient History Medical History High cholesterol Hypertension Major depression Multiple sclerosis Osteoporosis Surgical History History of breast implant History of colonoscopy History of shoulder surgery R total shoulder replacement Family History Mother Lung cancer Father , 59 UT Myocardial infarction Sister , 40 Lung cancer Social History Smoking Status: Never smoker Hx Alcohol Use: Yes Alcohol type: wine Alcohol Intake Frequency: Monthly or Less Hx Substance Use: No Preferred Language: Malay Wire [employer] Di[employer] Required: No Beliefs That Will Affect Care: None marital status: Current Living Situation: Spouse current occupational status: retired Other Information That Helps Us Care for You: No Feels Safe at Home: Yes Safety Concerns: Feels Safe At This Time Assistive Devices: Cane Review of Systems Review of Systems: Complete Review of Systems is as stated above, in the admission H&P, negative, or noncontributory. Physical Exam Physical Exam: General: A&Ox3. NAD. HENT: Normocephalic. Atraumatic. Eyes: PER. Conjunctiva pink, sclera clear. Neck: No carotid bruits. No JVD. Heart: Regular at 150 bpm. No murmur. No rub. Lungs: Clear to auscultation. Abdomen: +BS. Soft. Nontender. No masses or organomegaly. Extremities: Healing ecchymosis below the left knee. Minimal edema. No clubbing. No cyanosis Limited neurological examination is without focal deficits. Pulses: radial=2/4, posterior tibial=1/4. Results & Data ([facility]) Vital Signs (Past 12 Hours) Vital Signs Temp Pulse Pulse Resp BP BP Pulse Ox 03/20/22 08:16 36.8 C 100 H 20 131/74 96 03/20/22 06:11 108 H 129/87 03/20/22 03:21 36.6 C 102 H 18 142/79 H 92 03/19/22 23:15 36.7 C 101 H 18 122/73 96 03/19/22 23:00 113 H 03/19/22 22:47 110 H 141/106 H 03/19/22 22:30 160/117 H 03/19/22 22:06 156 H 147/117 H Laboratory Results Laboratory Results - last 48 hr 03/19/22 03/19/22 03/19/22 17:24 17:24 17:24 WBC 7.24 RBC 4.65 Hgb 14.0 Hct 42.7 MCV 91.8 MCH 30.1 MCHC 32.8 RDW Std Deviation 50.7 H RDW Coeff of Michael 15.0 H Plt Count 348 MPV 10.1 Immature Gran % (Auto) 0.4 Neut % (Auto) 57.1 Lymph % (Auto) 26.4 Josephine % (Auto) 11.3 Eos % (Auto) 4.1 Baso % (Auto) 0.7 Neut # (Auto) 4.13 Lymph # (Auto) 1.91 Josephine # (Auto) 0.82 H Eos # (Auto) 0.30 Baso # (Auto) 0.05 Immature Gran # (Auto) 0.03 H ESR PT 11.1 INR 1.0 APTT 31.8 H PTT Ratio 1.2 Sodium Potassium Chloride Carbon Dioxide Anion Gap BUN Creatinine Est Cr Clr Drug Dosing Est GFR ( Amer) Est GFR (Non-Af Amer) BUN/Creatinine Ratio Glucose Estimat Average Glucose Hemoglobin A1c Calcium Magnesium Total Bilirubin AST ALT Alkaline Phosphatase Troponin I High Sens 28.7 H C-Reactive Protein Total Protein Albumin Globulin Albumin/Globulin Ratio Triglycerides Cholesterol LDL Cholesterol, Calc VLDL Cholesterol, Calc HDL Cholesterol Cholesterol/HDL Ratio Lipase TSH SARS-CoV-2, RNA, NAAT 03/19/22 03/19/22 03/19/22 17:24 17:24 17:24 WBC RBC Hgb Hct MCV MCH MCHC RDW Std Deviation RDW Coeff of Michael Plt Count MPV Immature Gran % (Auto) Neut % (Auto) Lymph % (Auto) Josephine % (Auto) Eos % (Auto) Baso % (Auto) Neut # (Auto) Lymph # (Auto) Josephine # (Auto) Eos # (Auto) Baso # (Auto) Immature Gran # (Auto) ESR 22 PT INR APTT PTT Ratio Sodium 140 Potassium 3.9 Chloride 107 Carbon Dioxide 24 Anion Gap 9 BUN 28 H Creatinine 0.79 Est Cr Clr Drug Dosing 73.4 Est GFR ( Amer) 88.5 Est GFR (Non-Af Amer) 76.4 BUN/Creatinine Ratio 35.4 H Glucose 121 H Estimat Average Glucose Hemoglobin A1c Calcium 9.5 Magnesium 2.0 Total Bilirubin 0.6 AST 18 ALT 24 Alkaline Phosphatase 66 Troponin I High Sens C-Reactive Protein Total Protein 7.1 Albumin 4.3 Globulin 2.8 Albumin/Globulin Ratio 1.5 Triglycerides Cholesterol LDL Cholesterol, Calc VLDL Cholesterol, Calc HDL Cholesterol Cholesterol/HDL Ratio Lipase 11 TSH 4.426 SARS-CoV-2, RNA, NAAT 03/19/22 03/19/22 03/20/22 17:44 21:07 01:52 WBC RBC Hgb Hct MCV MCH MCHC RDW Std Deviation RDW Coeff of Michael Plt Count MPV Immature Gran % (Auto) Neut % (Auto) Lymph % (Auto) Josephine % (Auto) Eos % (Auto) Baso % (Auto) Neut # (Auto) Lymph # (Auto) Josephine # (Auto) Eos # (Auto) Baso # (Auto) Immature Gran # (Auto) ESR PT INR APTT PTT Ratio Sodium Potassium Chloride Carbon Dioxide Anion Gap BUN Creatinine Est Cr Clr Drug Dosing Est GFR ( Amer) Est GFR (Non-Af Amer) BUN/Creatinine Ratio Glucose Estimat Average Glucose Hemoglobin A1c Calcium Magnesium Total Bilirubin AST ALT Alkaline Phosphatase Troponin I High Sens 30.1 H Cancelled C-Reactive Protein 0.96 H Total Protein Albumin Globulin Albumin/Globulin Ratio Triglycerides Cholesterol LDL Cholesterol, Calc VLDL Cholesterol, Calc HDL Cholesterol Cholesterol/HDL Ratio Lipase TSH SARS-CoV-2, RNA, NAAT NEGATIVE 03/20/22 03/20/22 03/20/22 01:52 01:52 01:52 WBC 7.37 RBC 4.16 L Hgb 12.9 Hct 39.1 MCV 94.0 MCH 31.0 MCHC 33.0 RDW Std Deviation 50.9 H RDW Coeff of Michael 15.0 H Plt Count 313 MPV 10.3 Immature Gran % (Auto) 0.3 Neut % (Auto) 51.8 Lymph % (Auto) 32.7 Josephine % (Auto) 9.5 Eos % (Auto) 5.2 Baso % (Auto) 0.5 Neut # (Auto) 3.82 Lymph # (Auto) 2.41 Josephine # (Auto) 0.70 H Eos # (Auto) 0.38 Baso # (Auto) 0.04 Immature Gran # (Auto) 0.02 ESR PT INR APTT PTT Ratio Sodium 143 Potassium 3.4 L Chloride 109 H Carbon Dioxide 25 Anion Gap 9 BUN 26 H Creatinine 0.68 Est Cr Clr Drug Dosing 85.9 Est GFR ( Amer) 103.4 Est GFR (Non-Af Amer) 89.2 BUN/Creatinine Ratio 38.2 H Glucose 109 H Estimat Average Glucose 126 Hemoglobin A1c 6.0 H Calcium 8.8 Magnesium 2.2 Total Bilirubin 0.5 AST 17 ALT 20 Alkaline Phosphatase 54 Troponin I High Sens 23.3 H C-Reactive Protein Total Protein 6.2 Albumin 3.7 Globulin 2.5 Albumin/Globulin Ratio 1.5 Triglycerides 120 Cholesterol 152 LDL Cholesterol, Calc 75 VLDL Cholesterol, Calc 24 HDL Cholesterol 53 Cholesterol/HDL Ratio 2.9 Lipase TSH SARS-CoV-2, RNA, NAAT 03/20/22 03/20/22 03/20/22 01:52 07:12 07:12 WBC RBC Hgb Hct MCV MCH MCHC RDW Std Deviation RDW Coeff of Michael Plt Count MPV Immature Gran % (Auto) Neut % (Auto) Lymph % (Auto) Josephine % (Auto) Eos % (Auto) Baso % (Auto) Neut # (Auto) Lymph # (Auto) Josephine # (Auto) Eos # (Auto) Baso # (Auto) Immature Gran # (Auto) ESR PT INR APTT 46.7 H* 48.4 H* PTT Ratio 1.7 1.8 Sodium Potassium Chloride Carbon Dioxide Anion Gap BUN Creatinine Est Cr Clr Drug Dosing Est GFR ( Amer) Est GFR (Non-Af Amer) BUN/Creatinine Ratio Glucose Estimat Average Glucose Hemoglobin A1c Calcium Magnesium Total Bilirubin AST ALT Alkaline Phosphatase Troponin I High Sens 21.5 H C-Reactive Protein Total Protein Albumin Globulin Albumin/Globulin Ratio Triglycerides Cholesterol LDL Cholesterol, Calc VLDL Cholesterol, Calc HDL Cholesterol Cholesterol/HDL Ratio Lipase TSH SARS-CoV-2, RNA, NAAT Diagnostic Findings Admission chest x-ray showed no acute chest disease Left lower extremity venous duplex showed no evidence of DVT. Continuous telemetry monitoring reveals atrial flutter with rates ranging from 90 to 150 bpm. No periods of sinus. March 20, 2022 TTE interpretation summary ([facility], Dr. Ibarra): The left ventricle is normal in size. Mild concentric LVH. Severe global hypokinesis of the left ventricle. Ejection fraction 25 to 30%. Mildly dilated left atrium. Right atrium and right ventricle upper limits of normal in size, with global right ventricular hypokinesis. No significant valvular disease.
[2022-03-20] MEDS: METOPROLOL TARTRATE 1 MG/ML VIAL IV PRN ×2 (10:56→18:35)
[2022-03-20] MEDS: METOPROLOL SUCC 50MG EXT REL TAB PO SCH ×2 (12:27→18:12)
[2022-03-20] MEDS: FUROSEMIDE 20 MG TAB PO SCH (12:27)
--- NOTE | 2022-03-20 13:19 | Hospitalist Progress Note ---
Date of Service March 20, 2022 Assessment & Plan (1) Atrial flutter with rapid ventricular response: (2) Left knee pain: (3) Polyarthralgia: (4) Hypertension: (5) High cholesterol: (6) Multiple sclerosis: Plan: This is a 71-year-old female who has significant past medical history of HTN, HLD, multiple sclerosis in remission, depression, ADD who presents to ED secondary to being referred to her PCP due to atrial fibrillation. Atrial flutter with RVR Elevated troponin Remains in a flutter with RVR Pressure cardiology input and recommendation Metoprolol tartrate 25mg [id number] has been increased to 50 mg every 8 hourly Cycle troponins, patient without chest pain, EKG did demonstrate diffuse T wave inversions-troponins are minimally elevated due to strain doubt any ACS Echocardiogram in a.m.-shows new systolic dysfunction with EF of 25 to 30%, unknown duration and etiology could be tachycardia induced TSH WNL Has been getting metoprolol IV every 6 hourly as needed Left knee pain Polyarthralgia Obtain x-ray left knee-degenerative changes without any effusion Venous duplex -no evidence of DVT Obtain ESR-22, CRP-slightly elevated at 0.96, RF, ELVA-pending Tick panel pending in epic-negative ice tid, voltaren gel may need ortho or rheum referral Multiple sclerosis Intermission, not receiving treatment Recently reestablished with neurology at [facility] No acute symptoms Depression ADD Continue Zoloft Patient previously was on Adderall, this was discontinued today due to finding of atrial flutter DVT ppx: Heparin gtt Dispo: PCU PCP: Nohemi FULL CODE Admission and Anticipated Discharge Date Admission Date: March 19, 2022 Subjective 03/20/2022 The patient was seen and examined in telemetry unit She was admitted with exertional dyspnea with palpitation noted to have atrial flutter with rapid ventricular rate She denies any chest pain or palpitation but complains to have shortness of breath even when she talks for a while Review of Systems 2 Review of Systems: All systems reviewed and are unremarkable except as noted below Physical Exam Physical Exam: Lying in bed very anxious and minimal shortness of breath after conversation Constitutional: well developed, well nourished, + ill appearing and + obese Eyes: PERRL, conjunctivae normal, anicteric sclerae ENMT: external ear and nose normal, oropharynx normal Neck: trachea midline, no thyromegaly Respiratory: no respiratory distress Auscultation: lungs clear to ausc ultation bilaterally Cardiovascular: Rate/Rhythm: + tachycardic; not irregularly irregular Heart Sounds: normal S1, normal S2 and + murmur (2/6 ESM over precordium) Gastrointestinal (Abdomen): Inspection/Auscultation: normal bowel sounds; abdomen not distended Percussion/Palpation: abdomen soft; abdomen nontender Musculoskeletal: No acute arthritis in any joint Neurologic: patellar DTR's 2+ bilat, sensation intact Psychiatric: A+Ox3, euthymic affect Lymphatic: no cervical or axillary lymphadenopathy Results & Data Results & Data ([facility]) Vital Signs (Past 12 Hours) Vital Signs Temp Pulse Pulse Resp BP BP Pulse Ox 03/20/22 12:17 36.5 C 140 H 20 141/97 H 96 03/20/22 10:56 149 H 138/105 H 03/20/22 08:16 36.8 C 100 H 20 131/74 96 03/20/22 06:11 108 H 129/87 03/20/22 03:21 36.6 C 102 H 18 142/79 H 92 Laboratory Results Short CBC 03/19/22 03/20/22 Range/Units 17:24 01:52 WBC 7.24 7.37 (4.8-10.8) K/uL Hgb 14.0 12.9 (12.0-16.0) g/dL Hct 42.7 39.1 (37-47) % Plt Count 348 313 (130-400) K/uL BMP 03/19/22 03/20/22 17:24 01:52 Sodium 140 143 Potassium 3.9 3.4 L Chloride 107 109 H Carbon Dioxide 24 25 BUN 28 H 26 H Creatinine 0.79 0.68 Glucose 121 H 109 H Calcium 9.5 8.8 Liver Function 03/19/22 03/20/22 Range/Units 17:24 01:52 Total Bilirubin 0.6 0.5 (0.2-1.0) mg/dl AST 18 17 (13-39) U/L ALT 24 20 (7-52) U/L Alkaline Phosphatase 66 54 (34-104) U/L Albumin 4.3 3.7 (3.4-5.0) gm/dl Medications Administered Current Inpatient Medications Acetaminophen (Acetaminophen 325 Mg Tab) 650 mg PO Q4H PRN PRN Reason: Pain or Fever Stop: 04/18/22 21:46 Al Hydrox/Mg Hydrox/Simethicone (Aluminum/Magnesium Susp 30 Ml Udc) 15 ml PO Q4H PRN PRN Reason: Dyspepsia Stop: 04/18/22 21:46 Atorvastatin Calcium (Atorvastatin 10 Mg Tab) 10 mg PO Q48H TOMASA Stop: 04/20/22 08:59 Baclofen (Baclofen 10 Mg Tab) 10 mg PO BID PRN PRN Reason: Pain Stop: 04/18/22 21:46 Furosemide (Furosemide 20 Mg Tab) 20 mg PO QAM TOMASA Stop: 04/19/22 10:29 Last Admin: 03/20/22 12:27 Dose: 20 mg Documented by: Heparin Sodium/Dextrose (Heparin Sodium/Dextrose) 25,000 units in 500 mls @ 25 mls/hr IV .Q20H TOMASA; Protocol Stop: 04/18/22 18:59 Last Titration: 03/20/22 03:03 Dose: 850 units/hr, 17 mls/hr Documented by: Lisinopril (Lisinopril 10 Mg Tab) 10 mg PO DAILY TOMASA Stop: 04/20/22 08:59 Magnesium Hydroxide (Magnesium Hydroxide Susp 30 Ml Udc) 30 ml PO Q12H PRN PRN Reason: Constipation Stop: 04/18/22 21:46 Metoprolol Succinate (Metoprolol Succ 50mg Ext Rel Tab) 50 mg PO Q8H TOMASA Stop: 04/19/22 10:29 Last Admin: 03/20/22 12:27 Dose: 50 mg Documented by: Metoprolol Tartrate (Metoprolol Tartrate 1 Mg/Ml Vial) 5 mg IV Q4 PRN PRN Reason: tachycardia Stop: 04/18/22 21:46 Last Admin: 03/20/22 10:56 Dose: 5 mg Documented by: Oxycodone/Acetaminophen (Oxycodone/Acetaminophen 5mg/325mg Tab) 1 tab PO Q6H PRN PRN Reason: Pain Stop: 04/02/22 21:46 Polyethylene Glycol (Polyethylene (Miralax) 17 Gm Pack) 17 gm PO DAILY PRN PRN Reason: Constipation Stop: 04/18/22 21:46 Sertraline HCl (Sertraline Hcl 50 Mg Tablet) 25 mg PO DAILY TOMASA Stop: 04/19/22 08:59 Last Admin: 03/20/22 09:06 Dose: 25 mg Documented by: (1) Left knee pain Chronicity: acute Qualified Code(s): M25.562 - Pain in left knee
[2022-03-20] MEDS ORDERED: METOPROLOL TARTRATE 1 MG/ML VIAL IV STA (19:32)
[2022-03-20] MEDS ORDERED: STAT IV Infusion **Titration per Protocol STA (21:27)
[2022-03-20] MEDS ORDERED: dilTIAZem HCl 5 MG/ML 5 ML VIAL IV STA (21:27)
--- NOTE | 2022-03-20 21:48 | Electrocardiogram Report ---
Test Reason : Blood Pressure : / mmHG Vent. Rate : 154 BPM Atrial Rate : 319 BPM P-R Int : 000 ms QRS Dur : 082 ms QT Int : 316 ms P-R-T Axes : 181 -03 058 degrees QTc Int : 506 ms Atrial flutter with variable A-V block Nonspecific ST and T wave abnormality Abnormal ECG No previous ECGs available Confirmed by Kiran Morrison ([id number]) on 03/20/2022 9:47:56 PM Referred By: Bess Song Confirmed By:Kiran Morrison
--- NOTE | 2022-03-20 21:50 | Electrocardiogram Report ---
Test Reason : Blood Pressure : / mmHG Vent. Rate : 107 BPM Atrial Rate : 321 BPM P-R Int : 000 ms QRS Dur : 082 ms QT Int : 374 ms P-R-T Axes : 000 009 -37 degrees QTc Int : 499 ms Poor data quality, interpretation may be adversely affected Atrial flutter with variable A-V block Abnormal ECG When compared with ECG of 19-MAR-2022 17:18, T wave inversion more evident in Anterior leads Confirmed by Kiran Morrison ([id number]) on 03/20/2022 9:50:01 PM Referred By: Bess Song Confirmed By:Kiran Morrison
[2022-03-20] MEDS: dilTIAZem HCL 125 MG in DEXTROSE 5% 100 ML IV SCH (21:53)
--- NOTE | 2022-03-20 22:22 | Electrocardiogram Report ---
Test Reason : Blood Pressure : / mmHG Vent. Rate : 108 BPM Atrial Rate : 317 BPM P-R Int : 000 ms QRS Dur : 102 ms QT Int : 410 ms P-R-T Axes : 000 -12 238 degrees QTc Int : 549 ms Atrial flutter with variable A-V block Prolonged QT Abnormal ECG When compared with ECG of 19-MAR-2022 17:56, No significant change was found Confirmed by Kiran Morrison ([id number]) on 03/20/2022 10:22:22 PM Referred By: Bess Song Confirmed By:Kiran Morrison
[2022-03-21] MEDS: METOPROLOL SUCC 50MG EXT REL TAB PO SCH ×3 (01:18→19:24)
[2022-03-21] MEDS: HEPARIN SODIUM/DEXTROSE 25,000 UNITS/500 ML BAG IV SCH (01:53)
[2022-03-21 05:58] LABS: Basophils # (auto) 0.07 K/uL (0-0.2); Eosinophils % (auto) 4.5 %; Hematocrit (blood only) 41.3 % (37-47); Hemoglobin 13.5 g/dL (12.0-16.0); Immature Granulocytes # (auto) 0.01 K/uL (0.00-0.02); Immature Granulocytes % (auto) 0.1 %; Lymphocytes # (auto) 2.63 K/uL (1.2-3.4); Lymphocytes % (auto) 39.2 %; Mean Corpuscular Hemoglobin 30.9 pg (25-34); Mean Corpuscular Hgb Conc 32.7 g/dL (32-36); Mean Corpuscular Volume 94.5 fL (80-100); Mean Platelet Volume 10.3 fL (7.4-10.4); Monocytes # (auto) 0.53 K/uL (0.11-0.59); Monocytes % (auto) 7.9 %; Neutrophils # (auto) 3.17 K/uL (1.4-6.5); Neutrophils % (auto) 47.3 %; Platelet Count 312 K/uL (130-400); RDW Coefficient of Variation 15.1 % (11.5-14.5); Red Blood Count 4.37 M/uL (4.2-5.4); White Blood Count 6.71 K/uL (4.8-10.8)
[2022-03-21 06:16] LABS: BUN Creatinine Ratio 33.8 (10-20); Creatinine Clr Calc Pharmacy 76.8 ml/min; Est GFR (African American) 91.3 ml/min; Est GFR (Non-African American) 78.8 ml/min; Potassium 3.8 mmol/L (3.5-5.1)
[2022-03-21 06:19] LABS: Partial Thromboplastin Ratio 2.3
[2022-03-21 06:28] LABS: Partial Thromboplastin Time 62.8 Seconds (21.0-31.0)
[2022-03-21] MEDS: lisinopril 10 MG TAB PO SCH (08:04)
[2022-03-21] MEDS: ATORVASTATIN 10 MG TAB PO SCH (08:04)
[2022-03-21] MEDS: FUROSEMIDE 20 MG TAB PO SCH (08:04)
[2022-03-21] MEDS: SERTRALINE HCL 50 MG TABLET PO SCH (08:05)
--- NOTE | 2022-03-21 10:18 | Electrocardiogram Report ---
Test Reason : Blood Pressure : / mmHG Vent. Rate : 083 BPM Atrial Rate : 293 BPM P-R Int : 000 ms QRS Dur : 092 ms QT Int : 426 ms P-R-T Axes : 039 -06 -45 degrees QTc Int : 500 ms Atrial flutter with variable A-V block Prolonged QT Abnormal ECG When compared with ECG of 20-MAR-2022 06:05, T wave inversion less evident in Lateral leads Confirmed by Alfonso Wolff ([id number]) on 03/21/2022 10:17:43 AM Referred By: Bess Song Confirmed By:Alfonso Wolff
--- NOTE | 2022-03-21 13:54 | Cardiology Progress Note ---
Date of Service March 21, 2022 Assessment & Plan (1) Typical atrial flutter: (2) Cardiomyopathy: (3) Systolic dysfunction: (4) Elevated troponin: Plan: New onset symptomatic atrial flutter with a rapid ventricular response of unknown duration (suspect weeks to months) New onset systolic dysfunction with EF 25 to 30%, of unknown duration and etiology, likely tachycardia induced Narrow QRS duration Minimally elevated high-sensitivity troponin Hypertension Dyslipidemia Family history of ischemic heart disease (father with an [place] at 59) Titrate beta-ed dosing for heart rate control, switching to metoprolol succinate Short-term diltiazem added for rate control Heparin anticoagulation, eventually switching to Eliquis We will plan on performing STARR guided cardioversion on 03/23/2022 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 We will hold lisinopril at this time and anticipate transition to Entresto prior to discharge. Ischemic work-up will also be completed but believe that achieving sinus rhythm would be the initial goal Admission and Anticipated Discharge Date Admission Date: March 19, 2022 Subjective Patient seen and examined, chart reviewed. States that she is feeling better today. No shortness of breath with ambulation. No complaints at rest. Telemetry reviewed: Atrial flutter with variable AV conduction Review of Systems Review of Systems: All systems reviewed & are unremarkable except as noted in HPI & below Physical Exam Physical Exam: General: Awake, alert and oriented x 3. No acute distress. HEENT: Normocephalic, atraumatic. Pupils equal, round and reactive to light and accommodation. Extraocular muscles are intact. Anicteric sclera. Moist mucous membranes. Neck: No JVD. No bruit. Cardiovascular: irregularly irregular, unable to appreciate murmur, rub or gallop. Pulmonary: Clear to auscultation bilaterally. No rales, rhonchi, or wheezing. Abdomen: Bowel sounds x 4, soft. No rebound, guarding or tenderness. No organomegaly. Extremities: No clubbing, cyanosis or edema. +2 pedal pulses bilaterally. Skin: Warm and dry. Results & Data ([facility]) Vital Signs (Past 12 Hours) Vital Signs Temp Pulse Resp BP BP Pulse Ox 03/21/22 10:55 36.7 C 93 H 18 149/97 H 95 03/21/22 07:03 36.4 C L 90 18 137/88 94 03/21/22 03:33 36.4 C L 73 18 122/84 96
--- NOTE | 2022-03-21 14:02 | Hospitalist Progress Note ---
Date of Service March 21, 2022 Assessment & Plan (1) Atrial flutter with rapid ventricular response: (2) Left knee pain: (3) Polyarthralgia: (4) Hypertension: (5) High cholesterol: (6) Multiple sclerosis: Plan: This is a 71-year-old female who has significant past medical history of HTN, HLD, multiple sclerosis in remission, depression, ADD who presents to ED secondary to being referred to her PCP due to atrial fibrillation. Atrial flutter with RVR Elevated troponin Remains in a flutter with RVR Pressure cardiology input and recommendation Metoprolol tartrate 25mg [id number] has been increased to 50 mg every 8 hourly Cycle troponins, patient without chest pain, EKG did demonstrate diffuse T wave inversions-troponins are minimally elevated due to strain doubt any ACS Echocardiogram in a.m.-shows new systolic dysfunction with EF of 25 to 30%, unknown duration and etiology could be tachycardia induced TSH WNL Has been getting metoprolol IV every 6 hourly as needed Required IV Cardizem drip since last night on top of current doses of beta- ed Heart rate is below 100 as of this morning and without any significant symptoms Plan to do a STARR guided cardioversion on 03/23/2022 Spironolactone added Hold lisinopril with a view to start Entresto prior to discharge Cardiomyopathy -Etiology could be tachycardia for a long time/unknown viral infection/idiopathic -EF was noted to be 25 to 30% Left knee pain Polyarthralgia Obtain x-ray left knee-degenerative changes without any effusion Venous duplex -no evidence of DVT Obtain ESR-22, CRP-slightly elevated at 0.96, RF, ELVA-pending Tick panel pending in epic-negative ice tid, voltaren gel may need ortho or rheum referral -as an outpatient Multiple sclerosis Intermission, not receiving treatment Recently reestablished with neurology at [facility] No acute symptoms Depression ADD Continue Zoloft Patient previously was on Adderall, this was discontinued today due to finding of atrial flutter DVT ppx: Heparin gtt Dispo: PCU PCP: Nohemi FULL CODE Admission and Anticipated Discharge Date Admission Date: March 19, 2022 Subjective 03/20/2022 The patient was seen and examined in telemetry unit She was admitted with exertional dyspnea with palpitation noted to have atrial flutter with rapid ventricular rate She denies any chest pain or palpitation but complains to have shortness of breath even when she talks for a while 03/21/2022 The patient was seen and examined in telemetry unit She was noted to have high heart rate with palpitation last night and was started with intravenous Cardizem drip Rate is controlled as of this morning Denies any symptoms except anxiety and shortness of breath with exertion even after usual conversation Review of Systems Review of Systems: All systems reviewed and are unremarkable except as noted below Respiratory: Minimal shortness of breath at rest Cardiovascular: Additional Comments: No palpitation and no chest pain Physical Exam Physical Exam: Lying in bed very anxious and minimal shortness of breath after conversation Constitutional: well developed, well nourished, + ill appearing and + obese Eyes: PERRL, conjunctivae normal, anicteric sclerae ENMT: external ear and nose normal, oropharynx normal Neck: trachea midline, no thyromegaly Respiratory: no respiratory distress Auscultation: lungs clear to auscultation bilaterally Cardiovascular: Rate/Rhythm: not tachycardic and not irregularly irregular Heart Sounds: normal S1, normal S2 and + murmur (2/6 ESM over precordium) Gastrointestinal (Abdomen): Inspection/Auscultation: normal bowel sounds; abdomen not distended Percussion/Palpation: abdomen soft; abdomen nontender Musculoskeletal: No acute arthritis in any joint Neurologic: patellar DTR's 2+ bilat, sensation intact Psychiatric: A+Ox3, euthymic affect Lymphatic: no cervical or axillary lymphadenopathy Results & Data Results & Data ([facility]) Vital Signs (Past 12 Hours) Vital Signs Temp Pulse Resp BP BP Pulse Ox 03/21/22 10:55 36.7 C 93 H 18 149/97 H 95 03/21/22 07:03 36.4 C L 90 18 137/88 94 03/21/22 03:33 36.4 C L 73 18 122/84 96 Laboratory Results Short CBC 03/21/22 Range/Units 05:25 WBC 6.71 (4.8-10.8) K/uL Hgb 13.5 (12.0-16.0) g/dL Hct 41.3 (37-47) % Plt Count 312 (130-400) K/uL BMP 03/21/22 05:25 Sodium 138 Potassium 3.8 Chloride 106 Carbon Dioxide 22 BUN 26 H Creatinine 0.77 Glucose 107 H Calcium 9.0 Medications Administered Current Inpatient Medications Acetaminophen (Acetaminophen 325 Mg Tab) 650 mg PO Q4H PRN PRN Reason: Pain or Fever Stop: 04/18/22 21:46 Last Admin: 03/21/22 07:57 Dose: 650 mg Documented by: Al Hydrox/Mg Hydrox/Simethicone (Aluminum/Magnesium Susp 30 Ml Udc) 15 ml PO Q4H PRN PRN Reason: Dyspepsia Stop: 04/18/22 21:46 Atorvastatin Calcium (Atorvastatin 10 Mg Tab) 10 mg PO Q48H TOMASA Stop: 04/20/22 08:59 Last Admin: 03/21/22 08:04 Dose: 10 mg Documented by: Baclofen (Baclofen 10 Mg Tab) 10 mg PO BID PRN PRN Reason: Pain Stop: 04/18/22 21:46 Last Admin: 03/21/22 07:58 Dose: 10 mg Documented by: Furosemide (Furosemide 20 Mg Tab) 20 mg PO QAM TOMASA Stop: 04/19/22 10:29 Last Admin: 03/21/22 08:04 Dose: 20 mg Documented by: Heparin Sodium/Dextrose (Heparin Sodium/Dextrose) 25,000 units in 500 mls @ 25 mls/hr IV .Q20H TOMASA; Protocol Stop: 04/18/22 18:59 Last Titration: 03/21/22 07:01 Dose: 850 units/hr, 17 mls/hr Documented by: Diltiazem HCl 125 mg/ Dextrose 125 mls @ 5 mls/hr IV .Q24H [facility]; Protocol Stop: 04/19/22 21:29 Last Titration: 03/21/22 07:01 Dose: 5 mg/hr, 5 mls/hr Documented by: Lisinopril (Lisinopril 10 Mg Tab) 10 mg PO DAILY TOMASA Stop: 04/20/22 08:59 Last Admin: 03/21/22 08:04 Dose: 10 mg Documented by: Magnesium Hydroxide (Magnesium Hydroxide Susp 30 Ml Udc) 30 ml PO Q12H PRN PRN Reason: Constipation Stop: 04/18/22 21:46 Metoprolol Succinate (Metoprolol Succ 50mg Ext Rel Tab) 50 mg PO Q8H TOMASA Stop: 04/19/22 10:29 Last Admin: 03/21/22 11:04 Dose: 50 mg Documented by: Metoprolol Tartrate (Metoprolol Tartrate 1 Mg/Ml Vial) 5 mg IV Q4 PRN PRN Reason: tachycardia Stop: 04/18/22 21:46 Last Admin: 03/20/22 18:35 Dose: 5 mg Documented by: Oxycodone/Acetaminophen (Oxycodone/Acetaminophen 5mg/325mg Tab) 1 tab PO Q6H PRN PRN Reason: Pain Stop: 04/02/22 21:46 Polyethylene Glycol (Polyethylene (Miralax) 17 Gm Pack) 17 gm PO DAILY PRN PRN Reason: Constipation Stop: 04/18/22 21:46 Sertraline HCl (Sertraline Hcl 50 Mg Tablet) 25 mg PO DAILY TOMASA Stop: 04/19/22 08:59 Last Admin: 03/21/22 08:05 Dose: 25 mg Documented by: Spironolactone (Spironolactone 25 Mg Tab) 25 mg PO QAM TOMASA Stop: 04/20/22 13:59 (1) Left knee pain Chronicity: acute Qualified Code(s): M25.562 - Pain in left knee
[2022-03-21] MEDS: SPIRONOLACTONE 25 MG TAB PO SCH (15:44)
[2022-03-21] MEDS: dilTIAZem HCL 125 MG in DEXTROSE 5% 100 ML IV SCH (20:01)
[2022-03-22] MEDS: METOPROLOL SUCC 50MG EXT REL TAB PO SCH ×3 (01:53→19:26)
[2022-03-22 05:50] LABS: Basophils # (auto) 0.04 K/uL (0-0.2); Basophils % (auto) 0.7 %; Eosinophils # (auto) 0.34 K/uL (0-0.5); Hematocrit (blood only) 40.1 % (37-47); Hemoglobin 13.2 g/dL (12.0-16.0); Immature Granulocytes # (auto) 0.02 K/uL (0.00-0.02); Immature Granulocytes % (auto) 0.4 %; Lymphocytes # (auto) 2.08 K/uL (1.2-3.4); Lymphocytes % (auto) 36.9 %; Mean Corpuscular Hemoglobin 30.9 pg (25-34); Mean Corpuscular Hgb Conc 32.9 g/dL (32-36); Mean Corpuscular Volume 93.9 fL (80-100); Mean Platelet Volume 10.2 fL (7.4-10.4); Monocytes # (auto) 0.58 K/uL (0.11-0.59); Monocytes % (auto) 10.3 %; Neutrophils # (auto) 2.57 K/uL (1.4-6.5); Neutrophils % (auto) 45.7 %; Platelet Count 278 K/uL (130-400); RDW Coefficient of Variation 15.2 % (11.5-14.5); Red Blood Count 4.27 M/uL (4.2-5.4); White Blood Count 5.63 K/uL (4.8-10.8)
[2022-03-22 06:02] LABS: BUN Creatinine Ratio 29.5 (10-20); Calcium 8.9 mg/dl (8.5-10.1); Creatinine Clr Calc Pharmacy 75.5 ml/min; Est GFR (African American) 89.9 ml/min; Est GFR (Non-African American) 77.6 ml/min; Potassium 3.9 mmol/L (3.5-5.1)
[2022-03-22 06:09] LABS: Partial Thromboplastin Ratio 2.2
[2022-03-22 06:11] LABS: Partial Thromboplastin Time 59.2 Seconds (21.0-31.0)
[2022-03-22] MEDS: HEPARIN SODIUM/DEXTROSE 25,000 UNITS/500 ML BAG IV SCH ×2 (06:58→17:52)
[2022-03-22] MEDS: FUROSEMIDE 20 MG TAB PO SCH (08:28)
[2022-03-22] MEDS: SERTRALINE HCL 50 MG TABLET PO SCH (08:29)
[2022-03-22] MEDS: lisinopril 10 MG TAB PO SCH (08:29)
[2022-03-22] MEDS: SPIRONOLACTONE 25 MG TAB PO SCH (08:30)
--- NOTE | 2022-03-22 13:49 | Cardiology Progress Note ---
Date of Service March 22, 2022 Assessment & Plan (1) Typical atrial flutter: (2) Cardiomyopathy: (3) Systolic dysfunction: (4) Elevated troponin: Plan: New onset symptomatic atrial flutter with a rapid ventricular response of unknown duration (suspect weeks to months) New onset systolic dysfunction with EF 25 to 30%, of unknown duration and etiology, likely tachycardia induced Narrow QRS duration Minimally elevated high-sensitivity troponin Hypertension Dyslipidemia Family history of ischemic heart disease (father with an NV at 59) Titrate beta-ed dosing for heart rate control, switching to metoprolol succinate Short-term diltiazem added for rate control Heparin anticoagulation, eventually switching to Eliquis We will plan on performing STARR guided cardioversion in a.m. Will start Entresto today. Continue spironolactone Ischemic work-up will also be completed but believe that achieving sinus rhythm would be the initial goal Admission and Anticipated Discharge Date Admission Date: March 19, 2022 Subjective Patient seen and examined, chart reviewed. Resting comfortably without complaint. Denies any chest pain, shortness of breath, palpitations or lightheadedness. Telemetry reviewed: Atrial flutter with 4-1 conduction Review of Systems Review of Systems: All systems reviewed & are unremarkable except as noted in HPI & below Physical Exam Physical Exam: General: Awake, alert and oriented x 3. No acute distress. HEENT: Normocephalic, atraumatic. Pupils equal, round and reactive to light and accommodation. Extraocular muscles are intact. Anicteric sclera. Moist mucous membranes. Neck: No JVD. No bruit. Cardiovascular: irregularly irregular, unable to appreciate murmur, rub or gallop. Pulmonary: Clear to auscultation bilaterally. No rales, rhonchi, or wheezing. Abdomen: Bowel sounds x 4, soft. No rebound, guarding or tenderness. No organomegaly. Extremities: No clubbing, cyanosis or edema. +2 pedal pulses bilaterally. Skin: Warm and dry. Results & Data ([facility]) Vital Signs (Past 12 Hours) Vital Signs Temp Pulse Pulse Pulse Resp BP BP 03/22/22 10:23 72 19 142/90 H 03/22/22 08:00 85 03/22/22 07:03 36.8 C 70 18 128/85 03/22/22 01:52 36.6 C 71 16 125/81 Pulse Ox 03/22/22 10:23 95 03/22/22 08:00 03/22/22 07:03 96 03/22/22 01:52 94
--- NOTE | 2022-03-22 18:00 | Hospitalist Progress Note ---
Date of Service March 22, 2022 Assessment & Plan (1) Atrial flutter with rapid ventricular response: (2) Left knee pain: (3) Polyarthralgia: (4) Hypertension: (5) High cholesterol: (6) Multiple sclerosis: Plan: This is a 71-year-old female who has significant past medical history of HTN, HLD, multiple sclerosis in remission, depression, ADD who presents to ED secondary to being referred to her PCP due to atrial fibrillation. Atrial flutter with RVR Present on admission with atrial flutter with RVR Received IV Cardizem and IV Lopressor Currently on IV Cardizem drip hospital monitor showed atrial flutter with rate control Continue IV heparin drip Echocardiogram showed new systolic dysfunction with EF of 25 to 30%, unknown duration and etiology could be tachycardia induced Cardiology on board Plan for STARR and cardioversion in the morning Continue metoprolol 50 mg every 8hr Will make n.p.o. after midnight Elevated troponin Ischemic cardiomyopathy Troponin peaked at 30 then trending down EKG did demonstrate diffuse T wave inversions Plan to start on Entresto. Lisinopril on hold Continue spironolactone Continue statin, Lasix 20 mg daily, and metoprolol Will need ischemic work-up once achieve normal sinus rhythm Denies any chest pain Left knee pain Polyarthralgia X-ray left knee-degenerative changes without any effusion Venous duplex -no evidence of DVT Obtain ESR-22, CRP-slightly elevated at 0.96, RF, ELVA-pending Tick panel pending in epic-negative ice tid, voltaren gel may need ortho or rheum referral -as an outpatient Multiple sclerosis Intermission, not receiving treatment Recently reestablished with neurology at [facility] No acute symptoms Depression ADD Continue Zoloft Patient previously was on Adderall, this was discontinued today due to finding of atrial flutter DVT ppx: Heparin gtt Dispo: PCU PCP: Nohemi FULL CODE Admission and Anticipated Discharge Date Admission Date: March 19, 2022 Subjective Patient was seen and evaluated for follow-up of atrial flutter Lying in bed with no acute distress Patient said that she feels fine Denies any chest pain, palpitation, dizziness and shortness of breath. Review of Systems Review of Systems: All systems reviewed & are unremarkable except as noted in Subjective Physical Exam Physical Exam: General- No acute distress Head- atraumatic Eyes- PERRL, EOMI, ENT- oropharynx clear Neck- supple, no JVD Lungs- clear to auscultation Heart- no murmur Abdomen- normal bowel sounds, soft, nontender Extremities- no calf tenderness Neuro- alert, oriented x 3; PERRL, EOMI; no facial palsy; no dysarthria Skin- warm & dry Results & Data Results & Data ([facility]) Vital Signs (Past 12 Hours) Vital Signs Temp Pulse Pulse Pulse Resp BP BP 03/22/22 15:27 36.7 C 71 18 135/87 03/22/22 10:23 72 19 142/90 H 03/22/22 08:00 85 03/22/22 07:03 36.8 C 70 18 128/85 Pulse Ox 03/22/22 15:27 96 03/22/22 10:23 95 03/22/22 08:00 03/22/22 07:03 96 (1) Left knee pain Chronicity: acute Qualified Code(s): M25.562 - Pain in left knee
[2022-03-22] MEDS: dilTIAZem HCL 125 MG in DEXTROSE 5% 100 ML IV SCH (21:32)
[2022-03-23] MEDS: METOPROLOL SUCC 50MG EXT REL TAB PO SCH ×3 (02:22→18:24)
[2022-03-23 06:56] LABS: Hematocrit (blood only) 41.1 % (37-47); Hemoglobin 13.5 g/dL (12.0-16.0); Mean Corpuscular Hemoglobin 30.8 pg (25-34); Mean Corpuscular Volume 93.6 fL (80-100); Mean Platelet Volume 10.3 fL (7.4-10.4); Platelet Count 300 K/uL (130-400); RDW Coefficient of Variation 15.1 % (11.5-14.5); RDW Standard Deviation 51.8 fL (36.4-46.3); Red Blood Count 4.39 M/uL (4.2-5.4); White Blood Count 5.97 K/uL (4.8-10.8)
[2022-03-23] MEDS: HEPARIN SODIUM/DEXTROSE 25,000 UNITS/500 ML BAG IV SCH (06:56)
[2022-03-23 07:00] LABS: Mean Corpuscular Hgb Conc 32.8 g/dL (32-36)
[2022-03-23 07:25] LABS: Partial Thromboplastin Ratio 1.8
[2022-03-23 07:26] LABS: Partial Thromboplastin Time 50.6 Seconds (21.0-31.0)
[2022-03-23 09:51] LABS: Calcium 9.3 mg/dl (8.5-10.1); Creatinine Clr Calc Pharmacy 66.4 ml/min; Est GFR (African American) 76.6 ml/min; Est GFR (Non-African American) 66.1 ml/min; Potassium 4.1 mmol/L (3.5-5.1)
[2022-03-23] MEDS ORDERED: BENZOCAINE/TETRACAIN/BUTAM 50 APPLN/5 GM CAN EXT ONE (10:03)
--- NOTE | 2022-03-23 10:18 | Cardiology Progress Note ---
Date of Service March 23, 2022 Assessment & Plan (1) Typical atrial flutter: (2) Cardiomyopathy: (3) Systolic dysfunction: (4) Elevated troponin: Plan: New onset symptomatic atrial flutter with a rapid ventricular response of unknown duration (suspect weeks to months) New onset systolic dysfunction with EF 25 to 30%, of unknown duration and etiology, likely tachycardia induced Narrow QRS duration Minimally elevated high-sensitivity troponin Hypertension Dyslipidemia Family history of ischemic heart disease (father with an AK at 59) STARR performed, unfortunately, large thrombus burden present in the left atrial appendage. Cardioversion aborted. Will transfer back to her telemetry bed. Will need to heparin bridge to Coumadin given the presence of a thrombus. Will discontinue calcium channel ed at this time. We will ask our correctional counselor/case manager to look into the possibility of home Lovenox for her as well. Admission and Anticipated Discharge Date Admission Date: March 19, 2022 Subjective Patient seen and examined, chart reviewed. No complaints overnight. Denies chest pain, shortness of breath, palpitations, lightheadedness, dizziness or syncope. Telemetry reviewed: Atrial flutter rate controlled Review of Systems Review of Systems: All systems reviewed & are unremarkable except as noted in HPI & below Physical Exam Physical Exam: General: Awake, alert and oriented x 3. No acute distress. HEENT: Normocephalic, atraumatic. Pupils equal, round and reactive to light and accommodation. Extraocular muscles are intact. Anicteric sclera. Moist mucous membranes. Neck: No JVD. No bruit. Cardiovascular: irregularly irregular, unable to appreciate murmur, rub or gallop. Pulmonary: Clear to auscultation bilaterally. No rales, rhonchi, or wheezing. Abdomen: Bowel sounds x 4, soft. No rebound, guarding or tenderness. No organomegaly. Extremities: No clubbing, cyanosis or edema. +2 pedal pulses bilaterally. Skin: Warm and dry. Results & Data ([facility]) Vital Signs (Past 12 Hours) Vital Signs Temp Pulse Pulse Resp BP Pulse Ox 03/23/22 07:37 36.6 C 69 15 125/85 95 03/23/22 02:19 36.4 C L 73 16 123/83 96 03/23/22 00:00 73 03/22/22 23:18 36.5 C 68 17 117/78 95
--- NOTE | 2022-03-23 10:19 | Pre Anesthesia Assessment ---
Date of Service March 23, 2022 Pre Sedation Assessment Vital Signs Temp Pulse Pulse Pulse Resp BP BP 03/23/22 07:37 36.6 C 69 15 125/85 03/23/22 02:19 36.4 C L 73 16 123/83 03/23/22 00:00 73 03/22/22 23:18 36.5 C 68 17 117/78 03/22/22 19:24 36.7 C 73 17 129/90 03/22/22 15:27 36.7 C 71 18 135/87 03/22/22 10:23 72 19 142/90 H Pulse Ox 03/23/22 07:37 95 03/23/22 02:19 96 03/23/22 00:00 03/22/22 23:18 95 03/22/22 19:24 96 03/22/22 15:27 96 03/22/22 10:23 95 Pre-Sedation Airway Assessment Smoking Status: Never smoker Notes The planned sedation has been discussed with the patient. Informed Consent was obtained. I have identified the patient, determined the appropriateness of sedation and have assessed the patient immediately prior to the procedure. All medicine(s) and interventions are by my order.
[2022-03-23] MEDS ORDERED: fentaNYL citrate 100 MCG/2 ML VIAL ONE (10:24)
[2022-03-23] MEDS ORDERED: MIDAZOLAM HCL 5 MG/ML 1 ML VIAL ONE (10:24)
[2022-03-23] MEDS ORDERED: MIDAZOLAM HCL 1 MG/ML 2ML VIAL ONE (10:24)
[2022-03-23] MEDS: SERTRALINE HCL 50 MG TABLET PO SCH (10:28)
[2022-03-23] MEDS: ATORVASTATIN 10 MG TAB PO SCH (10:28)
[2022-03-23] MEDS: SPIRONOLACTONE 25 MG TAB PO SCH (10:28)
[2022-03-23] MEDS: FUROSEMIDE 20 MG TAB PO SCH (10:28)
--- NOTE | 2022-03-23 10:56 | Post Anesthesia Assessment ---
Date of Service March 23, 2022 Post Sedation Assessment Vital Signs Temp Pulse Pulse Resp BP BP Pulse Ox 03/23/22 10:45 72 16 114/72 90 03/23/22 10:40 72 16 137/90 94 03/23/22 10:35 88 20 118/75 95 03/23/22 10:32 94 H 20 162/112 H 97 03/23/22 10:14 73 148/117 H 95 03/23/22 07:37 36.6 C 69 15 125/85 95 03/23/22 02:19 36.4 C L 73 16 123/83 96 03/23/22 00:00 73 03/22/22 23:18 36.5 C 68 17 117/78 95 03/22/22 19:24 36.7 C 73 17 129/90 96 03/22/22 15:27 36.7 C 71 18 135/87 96 Discharge Sedation Level of Care: Fast Track Phase II Post Sedation Plan On clinical assessment, the patient appears to have tolerated the sedation without complications. Patient is recovering as anticipated. Patient will continue to be monitored by nursing and may be discharged when sedation discharge criteria are met per below protocol. Upon Completions of procedure up to 15 minutes continue every 5 minute vital signs and the P.A.R. score; then discharge to a Phase I or Fast Track to Phase II per the following guidelines: * Discharge Patient to appropriate Phase II area if PAR is 8 or greater or return to pre- procedure baseline. The post - procedure orders will be as directed. * If PAR score is less than 8 or not return to pre-procedure baseline then patient will follow Phase I monitoring till PAR is reached for Phase II. The Phase I may be done in procedure room or may call to secure a Phase I area. * If naloxone or flumazenil are used for reversal, hold in Phase I for continued monitoring from when last reversal dose was given for a minimum of 60 minutes or longer pending the nurse and/or physician discretion of patient condition before discharge to Phase II. Please call the Sedation Physician to re-evaluate and complete post-note for discharge to Phase II area. Do NOT discharge from procedure sedation or Phase 1 until post- sedation evaluation note is complete by procedure /sedation MD Sedation Discharge Instructions to be given to the patient at discharge to home.
--- NOTE | 2022-03-23 10:58 | Operative Report ---
Post Operative Report Pre & Post Diagnosis Operation Date: 03/23/22 10:00 <No data on this case meets the specified criteria> I identified the patient and participated in the time-out.: Yes Procedure Operation Date: 03/23/22 10:00 Actual Procedures p Echo Transesophageal - Pierce Atkins DO s Echo Color Flow - Pierce Atkins DO Informed consent obtained. Patient prepped. Adequate moderate sedation achieved with a total of Versed 3 mg and fentanyl 75 mcg. STARR performed. Unfortunaltely, large thrombus present in TOO. Obviously, cardioversion was aborted Start time:1039 Stop time:1052 Patient tolerated well. Surgeon Pierce Atkins DO Manual Lathe Operator Prisca CASIANO Estimated Blood Loss 0 Findings Consistent with Post-Op Diagnosis Specimens none Description of Procedure see above I attest to the content of the Intraoperative Record and any orders documented therein. Any exceptions are noted below.
--- NOTE | 2022-03-23 13:03 | Electrocardiogram Report ---
Test Reason : Blood Pressure : / mmHG Vent. Rate : 072 BPM Atrial Rate : 288 BPM P-R Int : 000 ms QRS Dur : 102 ms QT Int : 466 ms P-R-T Axes : 067 027 124 degrees QTc Int : 510 ms Atrial flutter with 4:1 A-V conduction T wave abnormality, consider inferior ischemia T wave abnormality, consider anterolateral ischemia Prolonged QT Abnormal ECG When compared with ECG of 21-MAR-2022 05:57, Non-specific change in ST segment in Lateral leads T wave inversion more evident in Inferior leads T wave inversion more evident in Lateral leads Confirmed by Amaury Cespedes ([id number]) on 03/23/2022 1:03:23 PM Referred By: Bess Song Confirmed By:Chandrakant Cespedes
[2022-03-23] MEDS: WARFARIN SOD 7.5 MG TAB PO SCH (16:23)
--- NOTE | 2022-03-23 17:25 | Hospitalist Progress Note ---
Date of Service March 23, 2022 Assessment & Plan (1) Atrial flutter with rapid ventricular response: (2) Left knee pain: (3) Polyarthralgia: (4) Hypertension: (5) High cholesterol: (6) Multiple sclerosis: Plan: This is a 71-year-old female who has significant past medical history of HTN, HLD, multiple sclerosis in remission, depression, ADD who presents to ED secondary to being referred to her PCP due to atrial fibrillation. Atrial flutter with RVR Present on admission with atrial flutter with RVR Received IV Cardizem and IV Lopressor Currently on IV Cardizem drip engine monitor showed atrial flutter with rate control Echocardiogram showed new systolic dysfunction with EF of 25 to 30%, unknown duration and etiology could be tachycardia induced Cardiology on board STARR done today showed large thrombus burden present in the left atrial appendage. Cardioversion aborted. Continue metoprolol 50 mg every 8hr IV cardizem discontinued Continue IV heparin drip bridge and starting on Coumadin IV cardizem drip discontinued by cardio Elevated troponin Ischemic cardiomyopathy Troponin peaked at 30 then trending down EKG did demonstrate diffuse T wave inversions Plan to start on Entresto. Lisinopril on hold Continue spironolactone Continue statin, Lasix 20 mg daily, and metoprolol Will need ischemic work-up once achieve normal sinus rhythm Denies any chest pain Left Atrial appendage Thrombus STARR showed large atrial thrombus Continue heparin drip for now, will transition to Lovenox bridge with coumadin Cost for Lovenox check with pharmacy and will be $5 Left knee pain Polyarthralgia X-ray left knee-degenerative changes without any effusion Venous duplex -no evidence of DVT Obtain ESR-22, CRP-slightly elevated at 0.96, RF, ELVA-pending Tick panel pending in epic-negative ice tid, voltaren gel may need ortho or rheum referral -as an outpatient Multiple sclerosis Intermission, not receiving treatment Recently reestablished with neurology at [facility] No acute symptoms Depression ADD Continue Zoloft Patient previously was on Adderall, this was discontinued today due to finding of atrial flutter DVT ppx: Heparin gtt Dispo: PCU PCP: Nohemi FULL CODE Admission and Anticipated Discharge Date Admission Date: March 19, 2022 Subjective Pt was seen and examined for follow up of atrial flutter Lying in bed with no acute distress with at bedside Pt said that she feels fine Denies any chest pain, palpitation, dizziness and SOB Review of Systems Review of Systems: All systems reviewed & are unremarkable except as noted in Subjective Physical Exam Physical Exam: General- No acute distress Head- atraumatic Eyes- PERRL, EOMI, ENT- oropharynx clear Neck- supple, no JVD Lungs- clear to auscultation Heart- no murmur Abdomen- normal bowel sounds, soft, nontender Extremities- no calf tenderness Neuro- alert, oriented x 3; PERRL, EOMI; no facial palsy; no dysarthria Skin- warm & dry Results & Data Results & Data ([facility]) Vital Signs (Past 12 Hours) Vital Signs Temp Pulse Pulse Pulse Resp BP BP 03/23/22 16:25 117 H 03/23/22 14:00 36.8 C 74 14 125/79 03/23/22 13:30 36.3 C L 73 16 124/83 03/23/22 13:00 36.7 C 78 14 124/84 03/23/22 12:30 36.4 C L 72 17 114/77 03/23/22 12:15 36.6 C 71 16 120/77 03/23/22 12:11 36.6 C 69 16 125/85 03/23/22 12:00 36.4 C L 73 18 114/82 03/23/22 11:45 36.8 C 73 16 123/78 03/23/22 11:30 36.8 C 72 18 119/76 03/23/22 11:15 71 20 109/71 03/23/22 11:00 72 20 116/77 03/23/22 10:52 71 20 101/69 03/23/22 10:50 71 16 107/76 03/23/22 10:45 72 16 114/72 03/23/22 10:40 72 16 137/90 03/23/22 10:35 88 20 118/75 03/23/22 10:32 94 H 20 162/112 H 03/23/22 10:14 73 148/117 H 03/23/22 07:37 36.6 C 69 15 125/85 Pulse Ox 03/23/22 16:25 03/23/22 14:00 94 03/23/22 13:30 94 03/23/22 13:00 93 05/16/22 12:30 92 03/23/22 12:15 93 03/23/22 12:11 95 03/23/22 12:00 03/23/22 11:45 95 03/23/22 11:30 94 03/23/22 11:15 90 03/23/22 11:00 91 03/23/22 10:52 94 03/23/22 10:50 92 03/23/22 10:45 90 03/23/22 10:40 94 03/23/22 10:35 95 03/23/22 10:32 97 03/23/22 10:14 95 03/23/22 07:37 95 (1) Left knee pain Chronicity: acute Qualified Code(s): M25.562 - Pain in left knee
[2022-03-23 19:27] LABS: Anti Nuclear Antibody Screen NEGATIVE (NEGATIVE); Rheumatoid Factor <14 IU/mL (<14)
[2022-03-23] MEDS ORDERED: METOPROLOL TARTRATE 1 MG/ML VIAL IV STA (19:27)
[2022-03-23] MEDS ORDERED: dilTIAZem HCl 5 MG/ML 5 ML VIAL IV STA (20:39)
[2022-03-23] MEDS ORDERED: STAT IV Infusion **Titration per Protocol STA (20:39)
[2022-03-23] MEDS ORDERED: dilTIAZem HCL 125 MG in DEXTROSE 5% 100 ML IV SCH (20:45)
[2022-03-24] MEDS: METOPROLOL SUCC 50MG EXT REL TAB PO SCH (02:41)
[2022-03-24] MEDS: HEPARIN SODIUM/DEXTROSE 25,000 UNITS/500 ML BAG IV SCH (02:44)
[2022-03-24 04:57] LABS: Partial Thromboplastin Ratio 2.4
[2022-03-24 05:17] LABS: Partial Thromboplastin Time 66.9 Seconds (21.0-31.0)
[2022-03-24] MEDS ORDERED: STOP HEPARIN ORDER ONE (06:00)
[2022-03-24] MEDS ORDERED: ENOXAPARIN 80 MG/0.8 ML SYR SQ SCH (07:00)
[2022-03-24] MEDS ORDERED: ENOXAPARIN 100 MG/1ML SYR SQ SCH (07:00)
[2022-03-24] MEDS: SERTRALINE HCL 50 MG TABLET PO SCH (08:21)
[2022-03-24] MEDS: SPIRONOLACTONE 25 MG TAB PO SCH (08:22)
[2022-03-24] MEDS: FUROSEMIDE 20 MG TAB PO SCH (08:22)
[2022-03-24] MEDS ORDERED: METOPROLOL SUCC 50MG EXT REL TAB PO SCH (08:30)
--- NOTE | 2022-03-24 12:02 | Cardiology Progress Note ---
Date of Service March 24, 2022 Assessment & Plan (1) Typical atrial flutter: (2) Cardiomyopathy: (3) Systolic dysfunction: (4) Elevated troponin: Plan: New onset symptomatic atrial flutter with a rapid ventricular response of unknown duration (suspect weeks to months) New onset systolic dysfunction with EF 25 to 30%, of unknown duration and etiology, likely tachycardia induced Narrow QRS duration Minimally elevated high-sensitivity troponin Hypertension Dyslipidemia Family history of ischemic heart disease (father with an NV at 59) STARR performed, unfortunately, large thrombus burden present in the left atrial appendage. Appreciate case management's aid, Lovenox will be affordable for her so she may be discharged home today. Will need to establish and follow-up with the [facility] clinic as an outpatient. Rates elevated overnight, Cardizem drip restarted. I have increase metoprolol succinate to 100 mg twice daily. Obviously, would like to avoid calcium channel ed due to its negative inotropic effects for the long-term. HCTZ should not be restarted. Would add losartan 25 mg p.o. daily upon discharge, will need BMP as an outpatient in 1 week. Should also be discharged home with as needed Lasix. My office will call to arrange follow-up in the next 1 to 2 weeks. Admission and Anticipated Discharge Date Admission Date: March 19, 2022 Subjective Patient seen and examined, chart reviewed. Currently sitting on the side of the bed without complaints. States that she feels very well. Received first Lovenox injection this a.m. without issue. Telemetry reviewed: Rate controlled atrial flutter. Review of Systems Review of Systems: All systems reviewed & are unremarkable except as noted in HPI & below Physical Exam Physical Exam: General: Awake, alert and oriented x 3. No acute distress. HEENT: Normocephalic, atraumatic. Pupils equal, round and reactive to light and accommodation. Extraocular muscles are intact. Anicteric sclera. Moist mucous membranes. Neck: No JVD. No bruit. Cardiovascular: irregularly irregular, unable to appreciate murmur, rub or gallop. Pulmonary: Clear to auscultation bilaterally. No rales, rhonchi, or wheezing. Abdomen: Bowel sounds x 4, soft. No rebound, guarding or tenderness. No organomegaly. Extremities: No clubbing, cyanosis or edema. +2 pedal pulses bilaterally. Skin: Warm and dry. Results & Data ([facility]) Vital Signs (Past 12 Hours) Vital Signs Temp Pulse Resp BP BP Pulse Ox 03/24/22 06:56 36.5 C 72 18 137/96 97 03/24/22 05:37 71 128/86 03/24/22 04:29 120/82 03/24/22 03:40 70 129/84 03/24/22 02:35 72 126/85 03/24/22 01:40 81 130/91 03/24/22 00:35 135/89
--- NOTE | 2022-03-24 15:22 | Discharge Summary ---
Date of Service March 24, 2022 Admission HPI Per Admitting Provider This is a 71-year-old female who has significant past medical history of HTN, HLD, multiple sclerosis in remission, depression, ADD who presents to ED secondary to being referred to her PCP due to atrial fibrillation. The patient was seen in clinic today by PCP secondary to left knee pain. She states she has been having worsening left knee pain for the past 2 weeks. This is required her to walk with a cane. She denies any redness or swelling to left knee. When presenting to PCPs office they found her to be tachycardic. EKG was performed which revealed atrial fibrillation/flutter. Initially she was prescribed metoprolol tartrate as well as Eliquis. Plan was to set patient up for outpatient cardiology evaluation. Due to rapid ventricular rate they opted to send her to ED instead. She states over the past 2 to 3 months she has felt generally unwell. She complains of polymyalgias and shoulders, wrists and left knee. She also complains of generalized myalgias as well as shoulder and hip girdle weakness. Again she is ambulating with a cane due to left knee pain. There is no trauma or former injury to left knee. Denies being diagnosed with arthritis. Denies any tick bites. PCPs office did perform Lyme, Anaplasma and babesiosis panel. She also admits to dyspnea on exertion. She states even making the bed causes her to get out of breath and she has to take a break. This is new for her in the last 2 to 3 months. She denies any recent illness, fever, chills, sweats, lightheadedness, dizziness, syncope, chest pain, palpitations, nausea, vomiting, abdominal pain, change in her bowel or urinary habits. In ED patient remained hemodynamically stable although she was significantly tachycardic. She was also hypertensive, but during my evaluation I switched blood pressure cuffs to a larger cuff and her blood pressure was 145/82. She did receive 10 mg of IV diltiazem which did bring her heart rates from the 150s down to the low 100s. She was also started on heparin drip. She does have family history of CAD in her father who is of a fatal [place] at age 59. She states he was an avid smoker and alcohol user. Her brother has history of hypertension. Admission Exam Per Admitting Provider Constitutional: WD/WN, vitals as above, NAD, sitting up in bed, pleasant, conversing easily Head: Normocephalic, Atraumatic Eyes: PERRL, conjunctivae normal, anicteric sclerae ENMT: external ear and nose normal, oropharynx normal Neck: trachea midline, no thyromegaly normal visual inspection Respiratory: normal respiratory effort, lungs clear to auscultation, no wheeze, rales, rhonchi. Normal insp/exp effort, no accessory muscle use Cardiovascular: Irregular rate, irregular rhythm, no murmur, no edema Vessels: no JVD or carotid bruit Chest: normal inspection of chest Abdomen: normal bowel sounds, soft, nontender, no hepatosplenomegaly Musculoskeletal: no cyanosis or clubbing, extremities motor strength 5/5, left knee edematous, but not erythematous or warm Skin: no rashes, warm and dry normal turgor Neurologic: PERRL, EOMI, accommodation nl, no face palsy, no dysarthria CN's II-XI intact bilaterally and moves all extremities Psychiatric: A+Ox3, euthymic affect Lymphatic: no cervical or axillary lymphadenopathy : deferred Principal Diagnosis Atrial flutter with RVR Cardiomyopathy: Systolic dysfunction: Elevated troponin: Discharge Exam General- No acute distress Head- atraumatic Eyes- PERRL, EOMI, ENT- oropharynx clear Neck- supple, no JVD Lungs- clear to auscultation Heart- no murmur Abdomen- normal bowel sounds, soft, nontender Extremities- no calf tenderness Neuro- alert, oriented x 3; PERRL, EOMI; no facial palsy; no dysarthria Skin- warm & dry Discharge Data Allergies Allergy/AdvReac Type Severity Reaction Status Date / Time No Known Allergies Allergy Unverified 03/19/22 19:02 Consultations 03/19/22 18:44 ED Decision to Admit Stat 03/19/22 21:47 Consult Cardiology Routine Procedures Performed Operation Date: 03/23/22 10:00 Actual Procedures p Echo Transesophageal - Pierce Atkins DO s Echo Color Flow - DO [place] Doppler Echo Limited/Follow Up - Pierce Atkins DO Ordered Studies 03/19/22 17:28 US venous doppler LE LT Stat XR knee LT 1 or 2V routine CLINICAL HISTORY: swelling, pain TECHNIQUE: 2 views of the left knee were obtained. Comparison: None available at the time of this dictation. FINDINGS: There is no evidence of an acute fracture. Degenerative changes are seen most pronounced in the patellofemoral compartment. A small suprapatellar effusion is seen. No soft tissue abnormality is seen. IMPRESSION: Degenerative changes and joint effusion without evidence of acute abnormality. ACT 112: Negative or not required by law. Electronically signed by: Flo Dunaway M.D. 03/19/2022 8:33 PM Dictated:03/19/222031 Transcribed: 03/19/222031 US venous doppler LE LT CLINICAL HISTORY: Swelling TECHNIQUE: Left lower extremity real-time compression venous ultrasound with Color Doppler imaging. Utilizing real-time ultrasonic imaging multiple real time high-resolution ultrasonic images with compression and noncompression maneuvers of the deep venous system in addition to color doppler imaging were performed from the common femoral vein through the proximal calf veins. COMPARISON: None available at the time of this dictation. FINDINGS: Currently there is normal compressibility of the deep venous system from the common femoral vein through the proximal calf veins. No current evidence of acute thrombosis is identified. Partially visualized is a joint effusion in the left medial knee. Impression: No evidence of deep venous thrombus. ACT 112: Negative or not required by law. Electronically signed by: Flo Dunaway M.D. 03/19/2022 8:11 PM Dictated:03/19/222008 Transcribed: 03/19/222008 XR chest 1V portable CLINICAL HISTORY: Atypical chest pain TECHNIQUE: Single frontal radiograph of the chest was obtained. Comparison: None available at the time of this dictation. FINDINGS: Bilateral breast implants are seen. Partial visualization of a right shoulder arthroplasty. The cardiomediastinal silhouette is normal. The lungs are clear. No evidence of pleural effusion or pneumothorax. IMPRESSION: No acute chest disease. ACT 112: Negative or not required by law. Electronically signed by: Flo Dunaway M.D. 03/19/2022 5:49 PM Dictated:03/19/221747 Transcribed: 03/19/221747 Hospital Course (1) Atrial flutter with rapid ventricular response: (2) Left knee pain: (3) Polyarthralgia: (4) Hypertension: (5) High cholesterol: (6) Multiple sclerosis: This is a 71-year-old female who has significant past medical history of HTN, HLD, multiple sclerosis in remission, depression, ADD who presents to ED secondary to being referred to her PCP due to atrial fibrillation. 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 Cardioversion aborted due to the thrombus Metoprolol increased to 100mg BID IV cardizem discontinued IV heparin drip discontinued and transition to Lovenox Continue Lovenox sub until INR therapeutic (Goal 2-3) Ok from cardiology standpoint to discharge home Follow up with cardiology in 1 to 2 weeks Follow up with the coag clinic Elevated troponin Ischemic cardiomyopathy Troponin peaked at 30 then trending down EKG did demonstrate diffuse T wave inversions Plan to start on Entresto. Lisinopril on hold Continue spironolactone Continue statin, Lasix 20 mg daily, and metoprolol Will need ischemic work-up once achieve normal sinus rhythm Denies any chest pain Left Atrial appendage Thrombus STARR showed large atrial thrombus Continue heparin drip for now, will transition to Lovenox bridge with coumadin Continue Lovenox bridge with coumadin 7.5 mg ( for now) Cost for Lovenox check with pharmacy and will be $5 Follow up with the coag clinic to monitor PT/INR Left knee pain Polyarthralgia X-ray left knee-degenerative changes without any effusion Venous duplex -no evidence of DVT Obtain ESR-22, CRP-slightly elevated at 0.96, RF, ELVA-pending Tick panel pending in epic-negative ice tid, voltaren gel may need ortho or rheum referral -as an outpatient Multiple sclerosis Intermission, not receiving treatment Recently reestablished with neurology at [facility] No acute symptoms Depression ADD Continue Zoloft Patient previously was on Adderall, this was discontinued today due to finding of atrial flutter DVT ppx: Heparin gtt Dispo: PCU PCP: Nohemi FULL CODE Total Time Total Time Spent Total Time Spent (In Minutes): 35 minutes Discharge Plan Discharge Items Patient Disposition: Home - Self-Care Reason For Visit: AFLUTTER Discharge Diagnosis: Atrial flutter with rapid ventricular rate Cardiomyopathy: Systolic dysfunction: Elevated troponin: Activity: Resume your previous activity Non-emergency contact: Primary Care Provider and Forensic Computer Examiner Call non-emergency contact if: you have any medication questions and your symptoms worsen Follow-up/Referrals: Pierce Atkins DO [Physician] - (Date & Time 04/01/2022 9:00 AM Provider Pierce Atkins Jr., DO Department Cardiology, [facility] ) Bess Song DO [Primary Care Provider] - (Date & Time 04/02/2022 11:00 AM Provider Bess Song DO Department [facility] ) Diet: Heart Healthy Addtl Attending Provider Instructions: You were admitted to [facility] for rapid abnormal heart rhythm ( Atrial flutter). Cardiology was unable to cardiovert you due to large clot in your heart. You were started on blood thinner coumadin with Lovenox Bridge. Follow up with your primary care provider on 04/02/2022 @ 11:00 AM Bess Song DO Department [facility] Follow up with cardiology on 04/01/2022 @9:00 AM Pierce Atkins Jr., DO Department Cardiology, [facility] Follow up with the coumadin clinic to monitor your PT/INR level Continue Lovenox injection until INR therapeutic (goal between 2 to 3). Your provider or the coumadin clinic will advise you when to stop the Lovenox Monitor for abnormal bleeding such as blood in stool, urine Fall precaution (avoid any activity with high risk of fall ) Check BMP in 1 week to monitor your electrolytes and renal function Medication Instructions: Coumadin Warfarin is a medicine prescribed to prevent blood clots Warfarin will thin your blood and help prevent new clots Take your medications exactly as directed Never skip a dose. Never take a double dose. If you miss a dose, take it as soon as you remember It is important for your doctor to monitor your prothrombin time (PT). This is a lab test Keep your appointment for lab tests Risk of Adverse Drug Reactions and Interactions: Warfarin increases your risk of bleeding The food you eat and other medications you take can affect how Warfarin works in your body Ask your doctor about daily aspirin therapy It is very important to talk with your doctor about all of the other medicin es, antibiotics, vitamins or herbal products that you are taking All of your medication must be approved by your doctor, including new medicines, as well as medicines you have taken before you started taking Warfarin Avoid NSAIDs (Motrin, Aleve, Naproxen, Ibuprofen, Advil, Meloxicam,..) due to increase risks of bleeding Diet: In order for Warfarin to work properly, it is important to keep your intake of Vitamin K as consistent as possible You should avoid any sudden change in Vitamin K intake Report any significant changes in your diet or weight to your doctor Call your Primary Care doctor if you experience any of the following: Swelling or Pain in your leg Sudden, continuous pain deep in a muscle Pain that worsens when you are active or when you stand still for a long time Chest Pain Sudden Shortness of Breath Rapid or pounding heart beat Fainting Dizziness Cough with blood or bloody sputum Sweating more than normal Bruises Heavy or uncontrolled bleeding Blood in your urine, stool or vomit Black or tarry stools It is important for you to keep your follow up appointments with your medical provider. Pending Studies at Discharge: No Stand-Alone Forms: [facility], Smoking Cessation Medications and DC Order Prescriptions: New enoxaparin [Lovenox] 80 mg/0.8 mL syringe 90 mg subcut Q12H 6 Days Qty: 10.8 RF: 0 spironolactone 25 mg Tablet 25 mg PO QAM 30 Days Qty: 30 RF: 0 furosemide 20 mg Tablet 20 mg PO QAM 30 Days Qty: 30 RF: 0 metoprolol succinate 100 mg tablet extended release 24 hr 100 mg PO BID Qty: 60 RF: 0 losartan 25 mg tablet 25 mg PO DAILY Qty: 30 RF: 0 warfarin 7.5 mg tablet 7.5 mg PO DAILY 30 Days Qty: 30 RF: 0 Continued atorvastatin 10 mg tablet 10 mg PO Q2D RF: 0 alendronate 70 mg tablet 70 mg PO VALENZUELA RF: 0 aspirin [Aspir-81] 81 mg Tablet,Delayed Release (Dr/Ec) 81 mg PO DAILY RF: 0 baclofen 10 mg tablet 10 mg PO BID PRN (Reason: Pain) RF: 0 sertraline 25 mg Tablet 25 mg PO DAILY RF: 0 oxycodone-acetaminophen 5-325 mg Tablet 1 tab PO Q6H PRN (Reason: Pain) RF: 0 Discontinued hydrochlorothiazide 12.5 mg Capsule 12.5 mg PO DAILY RF: 0 lisinopril 30 mg Tablet 30 mg PO DAILY RF: 0 Discharge Orders: Discharge Order (Routine); Ordered 03/24/22 Ordered By: Kristin Badillo/Other Patient Handouts: Prediabetes, 5 Steps for Eating Healthier Admission Data Admit Date/Time: 03/19/22 18:48 Attending Provider: Kristin Meier Admit Provider: Pablo Locke Primary Care Provider: Bess Song Other Providers: Pablo Locke ; Attila Ibarra ; Horacio Guzman
[2022-03-24] MEDS: WARFARIN SOD 7.5 MG TAB PO SCH (15:54)
== END 2022-03-24 17:28 | disposition home or self-care (01) | DRG 310 ==
LOC: ED 16:47 → SUATTDRO 18:48 → 2S 18:48

== ENCOUNTER 2022-08-23 20:42 | Observation (INO) ==
--- NOTE | 2022-08-23 21:34 | Emergency Department Note ---
Impression & Plan Weakness, Ambulatory dysfunction ED Provider Note Provider: Juan Pablo Beltrán MD DATE OF SERVICE: 08/23/2022 CHIEF COMPLAINT: Weakness HISTORY OF PRESENT ILLNESS: Patient is a 72-year-old female past medical history including hypertension, multiple sclerosis, depression, hyperlipidemia, atrial fibrillation on anticoagulation presenting here today reevaluation after being seen yesterday. Patient states that she has been having some issues over the past several weeks with pain particularly in her legs as well as some weakness. Pain got a lot better starting steroids and evaluation yesterday. They thought it may be related to COVID and inflammatory state. Get him on a Medrol Dosepak and took this today and her pain is much better. Denies any falls but states she was been standing to do dishes and her legs nearly gave out on her. Did not fall though. Denies lightheadedness or actual syncope. Denies fever. Denies chest pain. Denies significant new acute issues in the upper extremities to me. Usually uses a walker but states that this is very hard for her to do at the current time. Denies any back pain. Denies significant new leg swelling. Denies any numbness or tingling in the lower extremities of significance at this point beyond the slight area just around where she had a recent left knee surgery. Again she feels more weakness in the right leg but both then got weak. REVIEW OF SYSTEMS: A total of 10 review of systems was obtained and negative except as stated above in the HPI. PAST MEDICAL HISTORY: As noted above MEDICATIONS: Reviewed home medications SOCIAL HISTORY: Lives at home, usually ambulates with walker PHYSICAL EXAM: GENERAL: alert and oriented in no acute distress on stretcher Head: normocephalic and atraumatic EYES: No injection, discharge or icterus. NECK: Trachea midline. ENT: Mucous membranes pink and moist. LUNGS: Airway patent. No retractions or tachypnea HEART: Regular rate and rhythm. ABDOMEN: Soft and non-tender, without guarding or rebound. SKIN: Acyanotic, warm, dry, without rashes EXTREMITIES: Without swelling, tenderness or deformity NEUROLOGICAL: No focal deficits. No aphasia. No facial droop or slurred speech. Normal strength and tone in the lower extremities testing on the bed. Sensation to gross touch normal. Attempted to stand and ambulate at bedside she is extremely shaky hardly able to take a step or 2 without falling with my assistance. Patient's laboratory studies reviewed. Differential Infection, dehydration, metabolic abnormality, hypo/hyperglycemia, electrolyte disturbance, anemia, hypoxia, cardiac sources, intracerebral event, toxicologic, neurologic, as well as other pathologies. includes IMPRESSION/MEDICAL DECISION MAKING: Nonfocal exam. Not having single leg swelling. Denies any significant back pain. Pain in the legs actually improved. Inflammatory markers and base of blood work are reassuring. Reviewed prior work-up. Has had negative Lyme testing before. Could be rheumatological or evolving PMR. Does not seem that focal and no history of any recent MS issues. Again started on some steroids anyway and did have improvement of pain. At this point she is very unsteady on her feet. I doubt this represents an acute CVA as it does not seem very focal. Again no evidence of an acute infection at this time in the lower extremities or knee infection of the left knee which was somewhat recently replaced. There is no significant swelling or calf tenderness and I doubt VTE/DVT. At this point for her safety given her significant ambulatory dysfunction believe that further observation here is indicated for further optimization and evaluation of her leg weakness as well as PT and OT. Again I doubt this represents acute spinal cord pathology given her lack of back pain or bladder or bowel symptoms. Doubt this represents GBS she has good strength in bed but just standing things deteriorate. DIAGNOSIS: Weakness, ambulatory dysfunction DISPOSITION: Hospitalist will evaluate Patient was agreeable with this plan. 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 Beliefs That Will Affect Care: None marital status: Current Living Situation: Spouse current occupational status: retired Feels Safe at Home: Yes Assistive Devices: Cane Allergies Allergies Allergy/AdvReac Type Severity Reaction Status Date / Time No Known Allergies Allergy Unverified 08/23/22 21:12 Home Meds Home Medications Medication Instructions Recorded Confirmed alendronate 70 mg tablet 70 mg PO WK 03/19/22 08/23/22 aspirin 81 mg tablet,delayed 81 mg PO DAILY 03/19/22 08/23/22 release atorvastatin 10 mg tablet 10 mg PO Q2D 03/19/22 08/23/22 baclofen 10 mg tablet 10 mg PO BID PRN Pain 03/19/22 08/23/22 oxycodone-acetaminophen 5 mg-325 1 tab PO .EVERY 4-6 HRS PRN Pain 03/19/22 08/23/22 mg tablet sertraline 25 mg tablet 25 mg PO QAM 03/19/22 08/23/22 apixaban 5 mg tablet (Eliquis) 5 mg PO BID 08/23/22 08/23/22 furosemide 20 mg tablet 20 mg PO QAM 08/23/22 08/23/22 losartan 25 mg tablet 25 mg PO QAM 08/23/22 08/23/22 metoprolol succinate 25 mg 25 mg PO QAM 08/23/22 08/23/22 tablet,extended release 24 hr spironolactone 25 mg tablet 25 mg PO QAM 08/23/22 08/23/22 tolterodine 2 mg capsule,extended 2 mg PO QAM 08/23/22 08/23/22 release 24 hr Previous Rx's Medication Instructions Recorded methylprednisolone 4 mg tablets in See Rx Instructions .Route 08/22/22 a dose pack (Medrol ([place])) .COMPLEX #21 ea oxycodone 5 mg tablet 5 mg PO Q6H PRN pain #12 tabs 08/22/22 Results & Data (ED) Vital Signs Vital Signs - 24 hr 08/23/22 20:47 08/23/22 22:59 Temperature 37.1 C Temperature Source Temporal Artery Scan Pulse Rate 72 Pulse Rate [Finger] 67 Pulse Rhythm [Finger] Regular Pulse Strength [Finger] Normal Respiratory Rate 18 16 Respiratory Effort / Characteristics Non-Labored Spontaneous Non-Labored Spontaneous Respiratory Depth Normal Normal Respiratory Pattern Regular Blood Pressure 156/93 H Blood Pressure [Right Arm] 156/96 H Blood Pressure Mean 114 Blood Pressure Mean [Right Arm] 116 Blood Pressure Position Sitting Blood Pressure Position [Right Arm] Sitting Pulse Oximetry 99 99 Oxygen Delivery Method Room Air Sepsis Recent Fever Within 48 Hours No Sepsis New/Unexplained Change in Mental Status No Sepsis Action Taken by Nursing No Action Required Laboratory Data Result diagrams: 08/23/22 21:43 08/23/22 21:43 Lab Results 08/23/22 08/23/22 08/23/22 Range/Units 21:43 21:43 21:43 WBC 10.33 (4.8-10.8) K/ul RBC 4.11 (3.93-5.22) M/uL Hgb 12.4 (12.0-16.0) g/dl Hct 38.2 (34.1-44.9) % MCV 92.9 (80.0-100.0) fL MCH 30.2 (25.0-34.0) pg MCHC 32.5 (32.0-36.0) g/dL RDW Std Deviation 50.2 H (36.4-46.3) fL RDW Coeff of Michael 14.6 H (11.5-14.5) % Plt Count 288 (130-400) K/uL MPV 9.8 (9.4-12.3) fL Immature Gran % (Auto) 0.7 % Neut % (Auto) 80.7 % Lymph % (Auto) 11.3 % Miner % (Auto) 6.7 % Eos % (Auto) 0.3 % Baso % (Auto) 0.3 % Neut # (Auto) 8.34 H (1.4-6.5) K/uL Lymph # (Auto) 1.17 L (1.2-3.4) K/uL Miner # (Auto) 0.69 (0.24-0.82) K/uL Eos # (Auto) 0.03 (0-0.50) K/uL Baso # (Auto) 0.03 (0-0.2) K/uL Immature Gran # (Auto) 0.07 H (0.00-0.02) K/uL Sodium 137 (136-145) mmol/L Potassium 4.3 (3.5-5.1) mmol/L Chloride 103 (98-107) mmol/L Carbon Dioxide 28 (21-32) mmol/L Anion Gap 6 (3-11) BUN 29 H (6-23) mg/dl Creatinine 1.05 (0.6-1.2) mg/dl Est Cr Clr Drug Dosing Not Reportable Est GFR ( Amer) 62.3 ml/min Est GFR (Non-Af Amer) 53.8 ml/min BUN/Creatinine Ratio 27.6 H (10-20) Glucose 130 H (70-99(Fasting)) mg/dl Calcium 9.3 (8.5-10.1) mg/dl Magnesium 2.3 (1.7-2.4) mg/dl Total Bilirubin 0.3 (0.2-1.0) mg/dl AST 13 (13-39) U/L ALT 11 (7-52) U/L Alkaline Phosphatase 58 (34-104) U/L Total Creatine Kinase 69 (26-192) U/L C-Reactive Protein 0.63 H (0-0.5) mg/dl Total Protein 7.2 (6.0-8.3) gm/dl Albumin 4.4 (3.4-5.0) gm/dl Globulin 2.8 (2.5-4.0) gm/dl Albumin/Globulin Ratio 1.6 (0.9-2) TSH 2.135 (0.300-4.500) uIu/ml SARS-CoV-2, RNA, NAAT (NEGATIVE) 08/23/22 Range/Units 21:43 WBC (4.8-10.8) K/ul RBC (3.93-5.22) M/uL Hgb (12.0-16.0) g/dl Hct (34.1-44.9) % MCV (80.0-100.0) fL MCH (25.0-34.0) pg MCHC (32.0-36.0) g/dL RDW Std Deviation (36.4-46.3) fL RDW Coeff of Michael (11.5-14.5) % Plt Count (130-400) K/uL MPV (9.4-12.3) fL Immature Gran % (Auto) % Neut % (Auto) % Lymph % (Auto) % Miner % (Auto) % Eos % (Auto) % Baso % (Auto) % Neut # (Auto) (1.4-6.5) K/uL Lymph # (Auto) (1.2-3.4) K/uL Miner # (Auto) (0.24-0.82) K/uL Eos # (Auto) (0-0.50) K/uL Baso # (Auto) (0-0.2) K/uL Immature Gran # (Auto) (0.00-0.02) K/uL Sodium (136-145) mmol/L Potassium (3.5-5.1) mmol/L Chloride (98-107) mmol/L Carbon Dioxide (21-32) mmol/L Anion Gap (3-11) BUN (6-23) mg/dl Creatinine (0.6-1.2) mg/dl Est Cr Clr Drug Dosing Est GFR ( Amer) ml/min Est GFR (Non-Af Amer) ml/min BUN/Creatinine Ratio (10-20) Glucose (70-99(Fasting)) mg/dl Calcium (8.5-10.1) mg/dl Magnesium (1.7-2.4) mg/dl Total Bilirubin (0.2-1.0) mg/dl AST (13-39) U/L ALT (7-52) U/L Alkaline Phosphatase (34-104) U/L Total Creatine Kinase (26-192) U/L C-Reactive Protein (0-0.5) mg/dl Total Protein (6.0-8.3) gm/dl Albumin (3.4-5.0) gm/dl Globulin (2.5-4.0) gm/dl Albumin/Globulin Ratio (0.9-2) TSH (0.300-4.500) uIu/ml SARS-CoV-2, RNA, NAAT NEGATIVE (NEGATIVE) Discharge Plan Visit Data Chief Complaint: Weakness Stated Complaint: UNABLE TO WALK, HERE YESTERDAY ED Provider: Juan Pablo Beltrán Discharge Problem: Weakness, Ambulatory dysfunction Patient Disposition: Being Evaluated by Hospitalist Forms Stand Alone Forms: My [facility] Prescriptions Prescriptions: No Action atorvastatin 10 mg tablet 10 mg PO Q2D alendronate 70 mg tablet 70 mg PO WK Rx Instructions: take on sundays with 8 ounces of water 30 min before 1st meal of day and remain upright for 30 min after taking tablet aspirin 81 mg Tablet,Delayed Release (Dr/Ec) 81 mg PO DAILY baclofen 10 mg tablet 10 mg PO BID PRN (Reason: Pain) sertraline 25 mg Tablet 25 mg PO QAM oxycodone-acetaminophen 5-325 mg Tablet 1 tab PO .EVERY 4-6 HRS PRN (Reason: Pain) oxycodone 5 mg tablet 5 mg PO Q6H PRN (Reason: pain) Qty: 12 0RF methylprednisolone [Medrol ([place])] 4 mg tablets,dose pack See Rx Instructions .ROUTE .COMPLEX Qty: 21 0RF Rx Instructions: As Per Packaging spironolactone 25 mg tablet 25 mg PO QAM furosemide 20 mg tablet 20 mg PO QAM Eliquis 5 mg tablet 5 mg PO BID tolterodine 2 mg capsule,extended release 24hr 2 mg PO QAM losartan 25 mg tablet 25 mg PO QAM metoprolol succinate 25 mg tablet extended release 24 hr 25 mg PO QAM Referrals Referrals: Bess Song, [Primary Care Provider] -
[2022-08-23 21:54] LABS: Basophils # (auto) 0.03 K/uL (0-0.2); Basophils % (auto) 0.3 %; Eosinophils # (auto) 0.03 K/uL (0-0.50); Eosinophils % (auto) 0.3 %; Hematocrit (blood only) 38.2 % (34.1-44.9); Hemoglobin 12.4 g/dl (12.0-16.0); Immature Granulocytes # (auto) 0.07 K/uL (0.00-0.02); Immature Granulocytes % (auto) 0.7 %; Lymphocytes # (auto) 1.17 K/uL (1.2-3.4); Lymphocytes % (auto) 11.3 %; Mean Corpuscular Hemoglobin 30.2 pg (25.0-34.0); Mean Corpuscular Hgb Conc 32.5 g/dL (32.0-36.0); Mean Corpuscular Volume 92.9 fL (80.0-100.0); Mean Platelet Volume 9.8 fL (9.4-12.3); Monocytes # (auto) 0.69 K/uL (0.24-0.82); Monocytes % (auto) 6.7 %; Neutrophils # (auto) 8.34 K/uL (1.4-6.5); Neutrophils % (auto) 80.7 %; Platelet Count 288 K/uL (130-400); RDW Coefficient of Variation 14.6 % (11.5-14.5); RDW Standard Deviation 50.2 fL (36.4-46.3); Red Blood Count 4.11 M/uL (3.93-5.22); White Blood Count 10.33 K/ul (4.8-10.8)
[2022-08-23 22:12] LABS: Alanine Aminotransferase 11 U/L (7-52); Albumin Globulin Ratio 1.6 (0.9-2); Albumin Level 4.4 gm/dl (3.4-5.0); Alkaline Phosphatase 58 U/L (34-104); Anion Gap 6 (3-11); Aspartate Aminotransferase 13 U/L (13-39); BUN Creatinine Ratio 27.6 (10-20); Bilirubin,Total 0.3 mg/dl (0.2-1.0); Blood Urea Nitrogen 29 mg/dl (6-23); C Reactive Protein 0.63 mg/dl (0-0.5); Calcium 9.3 mg/dl (8.5-10.1); Carbon Dioxide 28 mmol/L (21-32); Chloride 103 mmol/L (98-107); Creatine Kinase 69 U/L (26-192); Est GFR (African American) 62.3 ml/min; Est GFR (Non-African American) 53.8 ml/min; Globulin 2.8 gm/dl (2.5-4.0); Glucose 130 mg/dl (70-99(Fasting)); Magnesium 2.3 mg/dl (1.7-2.4); Potassium 4.3 mmol/L (3.5-5.1); Sodium 137 mmol/L (136-145); Total Protein 7.2 gm/dl (6.0-8.3)
[2022-08-24 01:31] LABS: Appearance Urine Clear (Clear); Bilirubin Urine Negative (Negative); Blood Urine Negative (Negative); Color Urine Yellow; Glucose Urine UA Negative (Negative); Ketones Urine Negative (Negative); Leukocyte Esterase Urine Negative (Negative); Nitrite Urine Negative (Negative); Protein Urine Negative (Negative); Specific Gravity Urine 1.015 (1.000-1.030); Urobilinogen Urine Negative (Negative)
[2022-08-24] MEDS ORDERED: BACLOFEN 10 MG TAB PO PRN (01:32)
[2022-08-24] MEDS ORDERED: oxyCODONE HCL IR 5 MG TAB (IMMEDIATE RELEASE) PO PRN (01:32)
[2022-08-24] MEDS ORDERED: POLYETHYLENE (MIRALAX) 17 GM PACK PO PRN (01:32)
[2022-08-24] MEDS ORDERED: ACETAMINOPHEN 325 MG TAB PO PRN (01:32)
--- NOTE | 2022-08-24 01:57 | History and Physical Report ---
DATE OF ADMISSION: 08/23/2022. CHIEF COMPLAINT: Weakness in the legs. HISTORY OF PRESENT ILLNESS: This is a 72-year-old female with past medical history significant for hyperlipidemia, atrial fibrillation/flutter, hypertension, history of thrombus of the left atrial appendage, osteoporosis. She has had multiple sclerosis for the last 40 years, not on any medications; attention deficit disorder, depression, presents with weakness in the legs. The patient says she has left knee surgery in June then she had COVID about 5 weeks ago. Initially did not do much physical therapy then started physical therapy, still ambulating with a walker since the surgery. She was in the ER yesterday because of body aches, thought to be from the post COVID and she was given Medrol Dosepak and discharged. Her pains and aches have resolved, but feeling weak in the legs. After walking for some time, both the right and left thighs are feeling weak and she could not ambulate much. For that reason, she came to the ER again today. Hemodynamically stable. Denies any headache, no dizziness, no blurred visions, no earache, no runny nose, no sore throat. No cough. Appetite is okay. No difficulty swallowing. No chest pain, no shortness of breath, no nausea, no vomiting, no abdominal pain. Normal bowel and bladder movements. No hematuria, no blood in the stools or black stools. ALLERGIES: No known drug allergies. PAST MEDICAL HISTORY: As mentioned above. PAST SURGICAL HISTORY: Colonoscopy, dental surgery, breast implants, cardioversion, surgical procedure of right tennis elbow, right shoulder arthroplasty, left knee replacement. MEDICATIONS: The patient is on alendronate 70 mg p.o. weekly, Eliquis 5 mg p.o. b.i.d., aspirin 81 mg p.o. daily, atorvastatin 10 mg p.o. daily, baclofen 10 mg p.o. b.i.d. p.r.n., Lasix 20 mg p.o. a.m., losartan 25 mg p.o. daily, Medrol Dosepak as directed, metoprolol succinate 25 mg p.o. a.m., oxycodone 5 mg p.o. q.6 hours p.r.n., sertraline 25 mg p.o. a.m., spironolactone 25 mg p.o. a.m.,tolterodine 2 mg p.o. a.m. FAMILY HISTORY: Significant for paternal aunt had breast cancer. Mother had lung cancer. Sister has lung cancer. Father had CT. Brother has hypertension. SOCIAL HISTORY: . No smoking. Alcohol occasionally. No drug use. REVIEW OF SYSTEMS: As per HPI. Rest of review of systems is negative. PHYSICAL EXAMINATION: GENERAL: The patient is of moderate build, not in acute distress. VITAL SIGNS: Temperature 37.1, pulse 67, respiratory rate 16, blood pressure 156/96, oxygen 99% on room air. HEENT: Pupils equal, round and reactive to light. Oral mucosa moist. NECK: No JVD or neck masses. CARDIOVASCULAR: S1 and S2 heard. Regular rate and rhythm. No murmur, no gallop. RESPIRATORY SYSTEM: Normal AP diameter. No accessory muscle use. No wheezing, no crackles. ABDOMEN: Soft, bowel sounds present, nontender, no distention. CENTRAL NERVOUS SYSTEM: Cranial nerves II through XII grossly intact, nonfocal. EXTREMITIES: No edema, no erythema. Power 5/5 in lower extremities. Sensation in the right lower extremity is intact. LABORATORY DATA: WBC 10.3, hemoglobin 12.4, hematocrit 38.2, platelets 288. Sodium 137, potassium 4.3, chloride 103, bicarbonate 28, BUN 29, creatinine 1.05. Serum glucose 130, calcium 9.3, magnesium 2.3, total bilirubin 0.3, AST 13, ALT 11, alkaline phosphatase 58. Total creatine kinase 69. C-reactive protein 0.6. TSH 2.1. SARS-CoV-2 rapid test negative. ASSESSMENT AND PLAN: This 72-year-old female presents with weakness. 1. Weakness: Somewhat ambulatory dysfunction. The patient states after walking some time, she is getting weakness in bilateral thighs. She is still using walker since her left knee surgery couple of months ago. We will observe in the hospital. PT, OT and monitor. 2. History of recent COVID, body aches, was started on Medrol Dosepak. History of bodyaches has improved. Continue Medrol Dosepak. 3. History of atrial flutter: On metoprolol succinate and Eliquis. We will monitor. 4. History of hyperlipidemia: On statin. 5. History of hypertension: On metoprolol and spironolactone. We will monitor the blood pressure. 6. Osteoporosis: On alendronate. 7. History of depression: On Zoloft. 8. Deep venous thrombosis prophylaxis: On Eliquis. DISPOSITION: Observe in medical floor. PT/OT. Social service to help with discharge planning. Level 1 full code. Job ID: [id number] MTDD
[2022-08-24] MEDS ORDERED: methylPREDNISolone 4 MG TAB PO SCH (07:00)
[2022-08-24 07:25] LABS: Basophils # (auto) 0.03 K/uL (0-0.2); Basophils % (auto) 0.3 %; Eosinophils # (auto) 0.01 K/uL (0-0.50); Eosinophils % (auto) 0.1 %; Hematocrit (blood only) 34.8 % (34.1-44.9); Hemoglobin 11.5 g/dl (12.0-16.0); Immature Granulocytes # (auto) 0.04 K/uL (0.00-0.02); Immature Granulocytes % (auto) 0.5 %; Lymphocytes % (auto) 17.4 %; Mean Corpuscular Hemoglobin 30.3 pg (25.0-34.0); Mean Corpuscular Volume 91.8 fL (80.0-100.0); Mean Platelet Volume 9.7 fL (9.4-12.3); Monocytes # (auto) 0.57 K/uL (0.24-0.82); Monocytes % (auto) 6.6 %; Neutrophils # (auto) 6.47 K/uL (1.4-6.5); Neutrophils % (auto) 75.1 %; Platelet Count 261 K/uL (130-400); RDW Coefficient of Variation 14.5 % (11.5-14.5); RDW Standard Deviation 49.1 fL (36.4-46.3); Red Blood Count 3.79 M/uL (3.93-5.22); White Blood Count 8.62 K/ul (4.8-10.8)
[2022-08-24 07:45] LABS: BUN Creatinine Ratio 35.1 (10-20); Calcium 8.9 mg/dl (8.5-10.1); Creatinine Clr Calc Pharmacy 78.6 ml/min; Est GFR (African American) 95.1 ml/min; Est GFR (Non-African American) 82.1 ml/min; Magnesium 2.1 mg/dl (1.7-2.4); Potassium 4.1 mmol/L (3.5-5.1)
[2022-08-24] MEDS ORDERED: SERTRALINE HCL 50 MG TABLET PO SCH (09:00)
[2022-08-24] MEDS ORDERED: METOPROLOL SUCC 25MG EXT REL TAB PO SCH (09:00)
[2022-08-24] MEDS ORDERED: APIXABAN 5 MG TABLET PO SCH (09:00)
[2022-08-24] MEDS ORDERED: ATORVASTATIN 10 MG TAB PO SCH (09:00)
[2022-08-24] MEDS ORDERED: LOSARTAN POTASSIUM 25 MG TAB PO SCH (09:00)
[2022-08-24] MEDS ORDERED: INFLUENZA VACCINE HIGH DOSE PF 65+ 0.7 ML SYR IM ONE (09:00)
[2022-08-24] MEDS ORDERED: SPIRONOLACTONE 25 MG TAB PO SCH (09:00)
[2022-08-24] MEDS ORDERED: FUROSEMIDE 20 MG TAB PO SCH (09:00)
[2022-08-24] MEDS ORDERED: TOLTERODINE TARTRATE LA 2 MG CAPCR PO SCH (09:00)
[2022-08-24] MEDS ORDERED: ASPIRIN 81 MG ECTAB PO SCH (09:00)
[2022-08-24] MEDS ORDERED: LIDOCAINE 5% 1 PATCH TD SCH (10:45)
--- NOTE | 2022-08-24 16:50 | Discharge Summary ---
Date of Service August 24, 2022 Admission HPI Per Admitting Provider This is a 72-year-old female with past medical history significant for hyperlipidemia, atrial fibrillation/flutter, hypertension, history of thrombus of the left atrial appendage, osteoporosis. She has had multiple sclerosis for the last 40 years, not on any medications; attention deficit disorder, depression, presents with weakness in the legs. The patient says she has left knee surgery in June then she had COVID about 5 weeks ago. Initially did not do much physical therapy then started physical therapy, still ambulating with a walker since the surgery. She was in the ER yesterday because of body aches, th ought to be from the post COVID and she was given Medrol Dosepak and discharged. Her pains and aches have resolved, but feeling weak in the legs. After walking for some time, both the right and left thighs are feeling weak and she could not ambulate much. For that reason, she came to the ER again today. Hemodynamically stable. Denies any headache, no dizziness, no blurred visions, no earache, no runny nose, no sore throat. No cough. Appetite is okay. No difficulty swallowing. No chest pain, no shortness of breath, no nausea, no vomiting, no abdominal pain. Normal bowel and bladder movements. No hematuria, no blood in the stools or black stools. Admission Exam Per Admitting Provider GENERAL: The patient is of moderate build, not in acute distress. VITAL SIGNS: Temperature 37.1, pulse 67, respiratory rate 16, blood pressure 156/96, oxygen 99% on room air. HEENT: Pupils equal, round and reactive to light. Oral mucosa moist. NECK: No JVD or neck masses. CARDIOVASCULAR: S1 and S2 heard. Regular rate and rhythm. No murmur, no gallop. RESPIRATORY SYSTEM: Normal AP diameter. No accessory muscle use. No wheezing, no crackles. ABDOMEN: Soft, bowel sounds present, nontender, no distention. CENTRAL NERVOUS SYSTEM: Cranial nerves II through XII grossly intact, nonfocal. EXTREMITIES: No edema, no erythema. Power 5/5 in lower extremities. Sensation in the right lower extremity is intact. Principal Diagnosis Ambulatory dysfunction Discharge Exam GENERAL: The patient is of moderate build, not in acute distress. HEENT: Pupils equal, round and reactive to light. Oral mucosa moist. NECK: No JVD or neck masses. CARDIOVASCULAR: S1 and S2 heard. Regular rate and rhythm. No murmur, no gallop. RESPIRATORY SYSTEM: Normal AP diameter. No accessory muscle use. No wheezing, no crackles. ABDOMEN: Soft, bowel sounds present, nontender, no distention. CENTRAL NERVOUS SYSTEM: Cranial nerves II through XII grossly intact, nonfocal. EXTREMITIES: No edema, no erythema. Power 5/5 in lower extremities. Sensation in the right lower extremity is intact. Discharge Data Allergies Allergy/AdvReac Type Severity Reaction Status Date / Time No Known Allergies Allergy Unverified 08/23/22 21:12 Consultations 08/23/22 22:41 ED Decision to Admit Stat Hospital Course (1) Ambulatory dysfunction: (2) Weakness: Plan This is a 72-year-old female with past medical history significant for hyperlipidemia, atrial fibrillation/flutter, hypertension, history of thrombus of the left atrial appendage, osteoporosis. She has had multiple sclerosis for the last 40 years, not on any medications; attention deficit disorder, depression, presents with weakness in the legs. The patient says she has left knee surgery in June and is currently undergoing physical therapy as o utpatient. She reports increasing pain on her right knee and increasing fatigue when she is standing for prolonged period of time. patient was offered x-ray of right knee and Lidoderm patch. Her and her decided that she would be best treated at home and will obtain x-ray as outpatient. She was prescribed lidocaine patch and discharged home. She was instructed to continue physical therapy and follow-up with her primary care doctor. Total Time Total Time Spent Total Time Spent (In Minutes): 25 Total Time Includes: Examination of the Patient, Discharge Planning, Medication Reconciliation, Communication With Other Providers and Other Discharge Plan Discharge Items Patient Disposition: Home - Self-Care Reason For Visit: WEAKNESS Discharge Diagnosis: Ambulatory dysfunction Activity: Resume your previous activity Non-emergency contact: Primary Care Provider Call non-emergency contact if: you have any medication questions and your symptoms worsen Follow-up/Referrals: Bess Song DO [Primary Care Provider] - (Date & Time 08/27/2022 1:40 PM Provider Bess Song DO Department [facility] ) Diet: Regular Addtl Attending Provider Instructions: Please follow-up with your primary care doctor as soon as possible. Please continue physical therapy at home. You are prescribed lidocaine patch to be placed on your right knee daily as needed. Please pick it up from your pharmacy. No other medication changes has been made. Pending Studies at Discharge: No Stand-Alone Forms: My [facility], Smoking Cessation Medications and DC Order Prescriptions: New lidocaine 4 % adhesive patch,medicated 1 patch topical DAILY Qty: 10 0RF Rx Instructions: may leave on for up to 12 hrs Continued atorvastatin 10 mg tablet 10 mg PO Q2D alendronate 70 mg tablet 70 mg PO WK Rx Instructions: take on sundays with 8 ounces of water 30 min before 1st meal of day and remain upright for 30 min after taking tablet aspirin 81 mg Tablet,Delayed Release (Dr/Ec) 81 mg PO DAILY baclofen 10 mg tablet 10 mg PO BID PRN (Reason: Pain) sertraline 25 mg Tablet 25 mg PO QAM oxycodone-acetaminophen 5-325 mg Tablet 1 tab PO .EVERY 4-6 HRS PRN (Reason: Pain) oxycodone 5 mg tablet 5 mg PO Q6H PRN (Reason: pain) Qty: 12 0RF methylprednisolone [Medrol ([place])] 4 mg tablets,dose pack See Rx Instructions .ROUTE .COMPLEX Qty: 21 0RF Rx Instructions: As Per Packaging spironolactone 25 mg tablet 25 mg PO QAM furosemide 20 mg tablet 20 mg PO QAM Eliquis 5 mg tablet 5 mg PO BID tolterodine 2 mg capsule,extended release 24hr 2 mg PO QAM losartan 25 mg tablet 25 mg PO QAM metoprolol succinate 25 mg tablet extended release 24 hr 25 mg PO QAM Discharge Orders: Discharge Order (Routine); Ordered 08/24/22 Ordered By: Aly Díaz Admission Data Admit Date/Time: 08/24/22 00:13 Attending Provider: Aly Díaz Admit Provider: Sujit Ray Primary Care Provider: Bess Song Other Providers: Sujit Ray Other Interventions: Discharge Summary Assessment (RN) Last Done: 08/24/22 11:58
[2022-08-25] MEDS ORDERED: methylPREDNISolone 4 MG TAB PO SCH (07:00)
[2022-08-26] MEDS ORDERED: methylPREDNISolone 4 MG TAB PO SCH (07:00)
[2022-08-27] MEDS ORDERED: methylPREDNISolone 4 MG TAB PO SCH (07:00)
[2022-08-30] MEDS ORDERED: ALENDRONATE SODIUM 70 MG TAB PO SCH (06:30)
== END 2022-08-24 12:29 | disposition home or self-care (01) ==
LOC: 3W 20:42 → ED 20:42 → 3W 08-24 01:16

== ENCOUNTER 2022-10-18 06:42 | Observation (INO) ==
[2022-10-18] MEDS ORDERED: SODIUM CHLORIDE 0.9% 1000ML 500 ML IV ONE (07:03)
[2022-10-18] MEDS ORDERED: ONDANSETRON INJ 2 MG/ML 2 ML VIAL IV STA (07:03)
[2022-10-18] MEDS ORDERED: MoRPHine SULFATE 10 MG/ML CARP/VIAL IV STA (07:03)
--- NOTE | 2022-10-18 07:08 | Emergency Department Note ---
Impression & Plan Ambulatory dysfunction, Primary osteoarthritis of right hip, Acute pain of right hip ED Provider Note Name: SABI MATHEWS Age: 72 Sex: F Arrives Via: Ambulance Informant: Patient ED Provider: Douglas Gentile MD Chief Complaint: Right hip pain weakness Impression: As per impression above Medical Decision Making: Pleasant 72-year-old female with a remote history of MS along with osteoporosis amongst other medical comorbidities arrives for evaluation of worsening right hip pain and generalized ambulatory dysfunction. Patient has had a gradual decline over the last few months following left knee replacement and then having COVID. She is now to the point where she is unable to even get out of her couch at home and needs significant assist even to get to the bathroom. She no longer is capable of caring for self at this point given her significant weakness and now increasing right hip pain on examination there is no clear evidence of hip fracture through exam or imaging. She does not have any hallmark signs of infectious etiology. She is already anticoagulated thus I feel DVT is unlikely. Laboratory work-up is unremarkable and not see any clear evidence of infection. I did give her a dose of some pain medications x2 and does feel significantly improved with this. I think at this point hospitalization for attempt at placement for higher level of rehab would be necessary and unfortunately unable to place at this time. Hospitalist was consulted for further management. I suspect that her pain in the right hip is primarily due to severe primary osteoarthritis which may have been exacerbated secondary to favoring with the recently repaired left knee. There is no evidence of neurovascular compromise at this time. Prior Medical Record and Triage/Nursing Notes reviewed by Me Additional history obtained from chart Differentials:Infection, dehydration, metabolic abnormality, hypo/hyperglycemia, electrolyte disturbance, anemia, hypoxia, cardiac sources, intracerebral event, toxicologic, neurologic, as well as other pathologies. Vital Signs: reviewed and remarkable for hypertension on arrival Interventions: Morphine IV x2 Labs:Reviewed and remarkable for no significant abnormalities Imaging:X-rays of the right hip no fracture nor dislocation appreciated Consults:David martinezist service Plan: Disposition:Hospitalization. Condition: Good History of Present Illness:72-year-old female arrives for evaluation of leg pain. Patient with left knee replacement 4 months ago. After that she contracted COVID. Since then she has been dealing with body aches, joint pains and worsening weakness. She states over the last week she has developed right groin pain she states the pain is excruciating. Worse with any movement. She is unable to straighten her leg due to the pain. Pain radiates down her right leg to the front of her knee. She denies any falls, trauma, injury. She was seen by her PCP a few days ago and reports having x-rays of the spine, hips, entire leg. She was started on Percocet but did not take any this morning reportedly. She denies any fevers, chills, shortness of breath, chest pain, abdominal pain, back pain, headache or other concerning signs or symptoms. She has had no increased swelling in her leg nor rashes. Patient notes that her left leg is always slightly bigger than the right following surgery. She does have a history of MS but denies any symptoms similar to that. Patient states she is just been lying on her couch for the last several days unable to move. Anytime she does she has to use a walker with significant assist. ROS: See above HPI for pertinent positives & negatives. A total of 10 systems reviewed and were otherwise negative. Past Medical History:See Below Past Surgical History:See Below Family History:See Below Social History:See Below Home Medications:See Below Allergies:nkda Vitals:Blood Pressure: 198/93, Pulse 76, RR 18, T 36.8C, O2 96% on RA Physical Exam: GENERAL: Patient is uncomfortable appearing and in moderate distress. EYES: No scleral icterus, unremarkable pupils. ENT: Mucous membranes moist, no nasal congestion. NECK: No masses appreciated, nomeningismus, trachea is midline. RESPIRATORY: No dyspnea. Clear to auscultation and equal bilaterally. No wheeze, no rhonchi. CARDIOVASCULAR: Regular rate and rhythm.No murmurs, rubs, gallops appreciated. GASTROINTESTINAL: Abdomen soft, non-tender, no peritonitis.Bowel sounds positive.No masses appreciated. BACK: No midline tenderness, no CVA tenderness EXTREMITIES: TTP over right anterior groin without swelling nor erythema. There are good pulses throughout both legs. Pain with ROM right knee and hip though pain is in anterior groin. Otherwise normal motion all extremities, no cyanosis, no edema. NEUROLOGIC: Alert and oriented, no acute motor or sensory deficits, no focal weakness, cranial nerves grossly intact. SKIN: No rash, no jaundice, no diaphoresis. PSYCH: Appropriate GCS: 15 ED Course: Times/Reassessments: Patient is much improved with IV pain medications and blood pressure is improving. Douglas Gentile MD Past Med/Surg History Medical History Ambulatory dysfunction Atrial flutter with rapid ventricular response Chest pain Left knee pain Major depression Osteoporosis Weakness Surgical History History of breast implant History of colonoscopy History of shoulder surgery R total shoulder replacement Family History Mother Lung cancer Father , 59 [place] Myocardial infarction Sister , 40 Lung cancer Social History Smoking Status: Former smoker Second Hand Exposure: No; Do You Dip or Chew Tobacco: No; Tobacco Cessation Education Requested by Patient: No Hx Alcohol Use: No Hx Substance Use: No Preferred Language: Greek Communication Ability: Effective Lvn Lpn Required: No Beliefs That Will Affect Care: None marital status: Current Living Situation: Spouse current occupational status: retired Other Information That Helps Us Care for You: No Feels Safe at Home: Yes Safety Concerns: Feels Safe At This Time Assistive Devices: Glasses, Lift Chair and Walker Allergies Allergies Allergy/AdvReac Type Severity Reaction Status Date / Time No Known Allergies Allergy Unverified 08/23/22 21:12 Home Meds Home Medications Medication Instructions Recorded Confirmed alendronate 70 mg tablet 70 mg PO WK 03/19/22 10/18/22 aspirin 81 mg tablet,delayed 81 mg PO DAILY 03/19/22 10/18/22 release atorvastatin 10 mg tablet 10 mg PO Q2D 03/19/22 10/18/22 oxycodone-acetaminophen 5 mg-325 1 tab PO .EVERY 4-6 HRS PRN Pain 03/19/22 10/18/22 mg tablet sertraline 25 mg tablet 25 mg PO QAM 03/19/22 10/18/22 apixaban 5 mg tablet (Eliquis) 5 mg PO BID 08/23/22 10/18/22 furosemide 20 mg tablet 20 mg PO QAM 08/23/22 10/18/22 losartan 25 mg tablet 25 mg PO QAM 08/23/22 10/18/22 metoprolol succinate 25 mg 25 mg PO QAM 08/23/22 10/18/22 tablet,extended release 24 hr spironolactone 25 mg tablet 25 mg PO QAM 08/23/22 10/18/22 tolterodine 2 mg capsule,extended 2 mg PO QAM 08/23/22 10/18/22 release 24 hr Previous Rx's Medication Instructions Recorded lidocaine 4 % topical patch 1 patch topical DAILY #10 ea 08/24/22 Results & Data (ED) Vital Signs Vital Signs - 24 hr 10/18/22 06:47 Temperature 36.8 C Temperature Source Oral Pulse Rate 76 Respiratory Rate 18 Blood Pressure 198/93 H Blood Pressure Mean 128 Blood Pressure Position Sitting Pulse Oximetry 96 Sepsis Recent Fever Within 48 Hours No Sepsis New/Unexplained Change in Mental Status N/A Sepsis Action Taken by Nursing No Action Required Laboratory Data Result diagrams: 10/19/22 08:06 10/19/22 08:06 Lab Results 10/18/22 10/18/22 10/18/22 Range/Units 07:25 07:25 07:25 WBC 7.71 (4.8-10.8) K/ul RBC 4.34 (3.93-5.22) M/uL Hgb 13.0 (12.0-16.0) g/dl Hct 39.7 (34.1-44.9) % MCV 91.5 (80.0-100.0) fL MCH 30.0 (25.0-34.0) pg MCHC 32.7 (32.0-36.0) g/dL RDW Std Deviation 45.7 (36.4-46.3) fL RDW Coeff of Michael 13.5 (11.5-14.5) % Plt Count 244 (130-400) K/uL MPV 10.1 (9.4-12.3) fL Immature Gran % (Auto) 0.4 % Neut % (Auto) 71.5 % Lymph % (Auto) 15.3 % [place] % (Auto) 8.3 % Eos % (Auto) 3.6 % Baso % (Auto) 0.9 % Neut # (Auto) 5.51 (1.4-6.5) K/uL Lymph # (Auto) 1.18 L (1.2-3.4) K/uL [place] # (Auto) 0.64 (0.24-0.82) K/uL Eos # (Auto) 0.28 (0-0.50) K/uL Baso # (Auto) 0.07 (0-0.2) K/uL Immature Gran # (Auto) 0.03 H (0.00-0.02) K/uL ESR 18 (0-30) mm/hr Sodium 143 (136-145) mmol/L Potassium 3.8 (3.5-5.1) mmol/L Chloride 109 H (98-107) mmol/L Carbon Dioxide 26 (21-32) mmol/L Anion Gap 8 (3-11) BUN 18 (6-23) mg/dl Creatinine 0.64 (0.6-1.2) mg/dl Est Cr Clr Drug Dosing 91.4 ml/min Est GFR ( Amer) 104.8 ml/min Est GFR (Non-Af Amer) 90.4 ml/min BUN/Creatinine Ratio 28.1 H (10-20) Glucose 99 (70-99(Fasting)) mg/dl Calcium 8.4 L (8.5-10.1) mg/dl Magnesium 1.9 (1.7-2.4) mg/dl C-Reactive Protein 0.75 H (0-0.5) mg/dl SARS-CoV-2, RNA, NAAT (NEGATIVE) 10/18/22 Range/Units 09:20 WBC (4.8-10.8) K/ul RBC (3.93-5.22) M/uL Hgb (12.0-16.0) g/dl Hct (34.1-44.9) % MCV (80.0-100.0) fL MCH (25.0-34.0) pg MCHC (32.0-36.0) g/dL RDW Std Deviation (36.4-46.3) fL RDW Coeff of Michael (11.5-14.5) % Plt Count (130-400) K/uL MPV (9.4-12.3) fL Immature Gran % (Auto) % Neut % (Auto) % Lymph % (Auto) % [place] % (Auto) % Eos % (Auto) % Baso % (Auto) % Neut # (Auto) (1.4-6.5) K/uL Lymph # (Auto) (1.2-3.4) K/uL [place] # (Auto) (0.24-0.82) K/uL Eos # (Auto) (0-0.50) K/uL Baso # (Auto) (0-0.2) K/uL Immature Gran # (Auto) (0.00-0.02) K/uL ESR (0-30) mm/hr Sodium (136-145) mmol/L Potassium (3.5-5.1) mmol/L Chloride (98-107) mmol/L Carbon Dioxide (21-32) mmol/L Anion Gap (3-11) BUN (6-23) mg/dl Creatinine (0.6-1.2) mg/dl Est Cr Clr Drug Dosing ml/min Est GFR ( Amer) ml/min Est GFR (Non-Af Amer) ml/min BUN/Creatinine Ratio (10-20) Glucose (70-99(Fasting)) mg/dl Calcium (8.5-10.1) mg/dl Magnesium (1.7-2.4) mg/dl C-Reactive Protein (0-0.5) mg/dl SARS-CoV-2, RNA, NAAT NEGATIVE (NEGATIVE) Administered Medications Atorvastatin Calcium (Atorvastatin 10 Mg Tab) 10 mg PO Q2D [facility] Stop: 11/18/22 08:59 Last Admin: 10/19/22 08:40 Dose: 10 mg Documented By: DIVYA Furosemide (Furosemide 20 Mg Tab) 20 mg PO [facility] Stop: 11/17/22 11:59 Last Admin: 10/19/22 08:40 Dose: 20 mg Documented By: Admin: 10/18/22 12:23 Dose: 20 mg Documented By: MARLA Losartan Potassium (Losartan Potassium 25 Mg Tab) 25 mg PO [facility] Stop: 11/17/22 11:59 Last Admin: 10/19/22 08:39 Dose: 25 mg Documented By: Admin: 10/18/22 12:23 Dose: 25 mg Documented By: MARLA Metoprolol Succinate (Metoprolol Succ 25mg Ext Rel Tab) 25 mg PO [facility] Stop: 11/17/22 11:59 Last Admin: 10/19/22 08:39 Dose: 25 mg Documented By: Admin: 10/18/22 12:23 Dose: 25 mg Documented By: MARLA Morphine Sulfate (Morphine Sulfate 2 Mg/Ml Carp) 2 mg IV Q4H PRN PRN Reason: Pain Stop: 11/01/22 11:44 Last Admin: 10/19/22 15:52 Dose: 2 mg Documented By: Admin: 10/19/22 08:36 Dose: 2 mg Documented By: Admin: 10/19/22 04:36 Dose: 2 mg Documented By: CAIN Oxycodone HCl (Oxycodone Hcl Ir 5 Mg Tab (Immediate Release)) 5 mg PO Q6H PRN PRN Reason: Pain Stop: 11/01/22 11:44 Last Admin: 10/19/22 11:45 Dose: 5 mg Documented By: Admin: 10/19/22 05:45 Dose: 5 mg Documented By: Admin: 10/18/22 17:37 Dose: 5 mg Documented By: DIVYA Sertraline HCl (Sertraline Hcl 50 Mg Tablet) 25 mg PO [facility] Stop: 11/17/22 11:59 Last Admin: 10/19/22 08:39 Dose: 25 mg Documented By: Admin: 10/18/22 12:23 Dose: 25 mg Documented By: MARLA Spironolactone (Spironolactone 25 Mg Tab) 25 mg PO [facility] Stop: 11/17/22 11:59 Last Admin: 10/19/22 08:40 Dose: 25 mg Documented By: Admin: 10/18/22 12:23 Dose: 25 mg Documented By: MARLA Tolterodine Tartrate (Tolterodine Tartrate La 2 Mg Capcr) 2 mg PO [facility] Stop: 11/17/22 11:59 Last Admin: 10/19/22 08:39 Dose: 2 mg Documented By: Admin: 10/18/22 12:23 Dose: 2 mg Documented By: MARLA Discontinued Medications Sodium Chloride (Nss 1000ml) 500 mls @ 999 mls/hr IV .Q31M ONE Stop: 10/18/22 07:33 Last Infusion: 10/18/22 08:12 Dose: 0 mls/hr Documented By: Admin: 10/18/22 07:41 Dose: 999 mls/hr Documented By: ANT Morphine Sulfate (Morphine Sulfate 10 Mg/Ml Carp/Vial) 6 mg IV NOW STA Stop: 10/18/22 07:04 Last Admin: 10/18/22 07:42 Dose: Not Given Documented By: ANT Morphine Sulfate (Morphine Sulfate 4 Mg/Ml 1 Ml Carp\Vial) Confirm Administered Dose 4 mg .ROUTE .STK-MED ONE Stop: 10/18/22 07:39 Last Admin: 10/18/22 07:42 Dose: 4 mg Documented By: ANT Morphine Sulfate (Morphine Sulfate 2 Mg/Ml Carp) Confirm Administered Dose 2 mg .ROUTE .STK-MED ONE Stop: 10/18/22 07:40 Last Admin: 10/18/22 07:42 Dose: 2 mg Documented By: ANT Morphine Sulfate (Morphine Sulfate 4 Mg/Ml 1 Ml Carp\Vial) 4 mg IV NOW STA Stop: 10/18/22 08:38 Last Admin: 10/18/22 09:21 Dose: 4 mg Documented By: ANT Ondansetron HCl (Ondansetron Inj 2 Mg/Ml 2 Ml Vial) 4 mg IV NOW STA Stop: 10/18/22 07:04 Last Admin: 10/18/22 07:42 Dose: 4 mg Documented By: ANT Discharge Plan Visit Data Chief Complaint: Knee Injury/Pain ED Provider: Douglas Gentile Discharge Problem: Ambulatory dysfunction, Primary osteoarthritis of right hip, Acute pain of right hip Patient Disposition: Admitted As Inpatient Discharge Instructions Interventions: ED Discharge Assessment Last Done: 10/18/22 10:52
[2022-10-18 07:35] LABS: Basophils # (auto) 0.07 K/uL (0-0.2); Basophils % (auto) 0.9 %; Eosinophils # (auto) 0.28 K/uL (0-0.50); Eosinophils % (auto) 3.6 %; Hematocrit (blood only) 39.7 % (34.1-44.9); Immature Granulocytes # (auto) 0.03 K/uL (0.00-0.02); Immature Granulocytes % (auto) 0.4 %; Lymphocytes # (auto) 1.18 K/uL (1.2-3.4); Lymphocytes % (auto) 15.3 %; Mean Corpuscular Hgb Conc 32.7 g/dL (32.0-36.0); Mean Corpuscular Volume 91.5 fL (80.0-100.0); Mean Platelet Volume 10.1 fL (9.4-12.3); Monocytes # (auto) 0.64 K/uL (0.24-0.82); Monocytes % (auto) 8.3 %; Neutrophils # (auto) 5.51 K/uL (1.4-6.5); Neutrophils % (auto) 71.5 %; Platelet Count 244 K/uL (130-400); RDW Coefficient of Variation 13.5 % (11.5-14.5); RDW Standard Deviation 45.7 fL (36.4-46.3); Red Blood Count 4.34 M/uL (3.93-5.22); White Blood Count 7.71 K/ul (4.8-10.8)
[2022-10-18] MEDS ORDERED: MoRPHine SULFATE 4 MG/ML 1 ML CARP\\VIAL ONE (07:38)
[2022-10-18] MEDS ORDERED: MoRPHine SULFATE 2 MG/ML CARP ONE (07:39)
[2022-10-18 08:02] LABS: BUN Creatinine Ratio 28.1 (10-20); C Reactive Protein 0.75 mg/dl (0-0.5); Calcium 8.4 mg/dl (8.5-10.1); Creatinine Clr Calc Pharmacy 91.4 ml/min; Est GFR (African American) 104.8 ml/min; Est GFR (Non-African American) 90.4 ml/min; Magnesium 1.9 mg/dl (1.7-2.4); Potassium 3.8 mmol/L (3.5-5.1)
--- NOTE | 2022-10-18 08:16 | Ultrasound Report ---
RIGHT LOWER EXTREMITY VENOUS DOPPLER CLINICAL HISTORY: Right groin/leg pain. COMPARISON STUDY: No previous studies for comparison. TECHNIQUE: Sonography of the deep venous system of the right lower extremity was performed. Compress ion and augmentation were evaluated. FINDINGS: The right common femoral, superficial femoral and popliteal veins were compressible. Augme ntation was normal. Flow was shown within the deep calf vessels. IMPRESSION: No evidence of deep venous thrombus within the right lower extremity. ACT 112: Negative or not required by law. Electronically signed by: Storm Beck M.D. 10/18/2022 8:15 AM
[2022-10-18] MEDS ORDERED: MoRPHine SULFATE 4 MG/ML 1 ML CARP\\VIAL IV STA (08:37)
--- NOTE | 2022-10-18 10:58 | XRay Report ---
XR hip RT 2V w pelvis HISTORY: 72 years-old Female RIght hip pain, ?OA chronic right hip pain COMPARISON: None TECHNIQUE: AP view of the pelvis with 2 views of the right hip FINDINGS: Mild to moderate left hip with severe right hip osteoarthritis. Demineralized appearance of the bones . There is an ill-defined linear lucency with peripheral sclerosis involving the medial aspect of the right acetabulum. No acute fracture, dislocation or avascular necrosis identified. Unremarkable soft tissues. IMPRESSION: 1. No acute fracture or dislocation. 2. Severe right hip osteoarthritis. 3. Peripherally sclerotic irregular lucency involving the medial wall right acetabulum may be project ional or represent a subacute to chronic nondisplaced fracture. ACT 112: Negative or not required by law. The above report was generated using voice recognition software. It may contain grammatical, syntax o r spelling errors. Electronically signed by: Roque Lopez M.D. 10/18/2022 10:56 AM
--- NOTE | 2022-10-18 11:34 | History & Physical Report ---
Date of Service October 18, 2022 Assessment & Plan (1) Primary osteoarthritis of right hip: (2) Ambulatory dysfunction: Plan: History of severe groin pain; failed outpatient PT OT. Recent outpatient x-ray shows severe osteoarthritis on right hip X-ray during the hospitalization shows severe right hip osteoarthritis; peripherally sclerotic irregular lucency involving the medial wall right acetabulum. Afebrile, normotensive and saturating well on room air. Plan; Will obtain orthopedic evaluation for the severe right hip osteoarthritis. Patient is interested in surgical evaluation. Pain control PT OT evaluation; patient is interested in inpatient rehab if needed. (3) Atrial flutter: (4) Tachycardia induced cardiomyopathy: (5) HFrEF (heart failure with reduced ejection fraction): Plan: History of a flutter on Eliquis Last echo showed reduced EF; likely due to tachycardia induced cardiomyopathy Will obtain echo and baseline EKG. Eliquis and aspirin on hold given possibility of surgery Losartan, spironolactone and metoprolol are resumed. L Continue Lipitor History of Present Illness Chief Complaint: Right groin pain for 2 months Primary Care Provider: Bess Song, DO Past medical history of hyperlipidemia, A. 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 History of TOO thrombus in [place] 03/2022; no thrombus seen in . Underwent left knee arthroplasty for osteoarthritis on 07/[address] Roque Basurto. Last confinement in August 24 due to right knee pain. Discharged home with plan to continue with home PT OT. Patient presents to the emergency department due to right groin pain which has been persistent for several months despite extensive physical therapy. The pain radiate down her thigh to the knee; she denies any numbness/weakness of her legs. She had undergone physical therapy at home. She also had recent x-ray done by her primary care doctor of the hip which showed severe osteoarthritis. Patient reports that she was not able to get up from her bed today due to severe pain. She wanted to have orthopedic evaluation; is open to idea for possible surgery. She is also interested in inpatient rehab. Patient denies fever, chills, chest pain, shortness of breath, abdominal pain or urinary symptoms. She is compliant with her medications. She is due for an echo to follow-up on her tachycardia induced cardiomyopathy. She had followed up with Dr. Jackson in June prior to her knee replacement. Allergies Allergy/AdvReac Type Severity Reaction Status Date / Time No Known Allergies Allergy Unverified 08/23/22 21:12 Home Medications Medication Instructions Recorded Confirmed Type alendronate 70 mg tablet 70 mg PO WK 03/19/22 10/18/22 History aspirin 81 mg tablet,delayed 81 mg PO DAILY 03/19/22 10/18/22 History release atorvastatin 10 mg tablet 10 mg PO Q2D 03/19/22 10/18/22 History oxycodone-acetaminophen 5 mg-325 1 tab PO .EVERY 4-6 HRS PRN Pain 03/19/22 10/18/22 History mg tablet sertraline 25 mg tablet 25 mg PO QAM 03/19/22 10/18/22 History apixaban 5 mg tablet (Eliquis) 5 mg PO BID 08/23/22 10/18/22 History furosemide 20 mg tablet 20 mg PO QAM 08/23/22 10/18/22 History losartan 25 mg tablet 25 mg PO QAM 08/23/22 10/18/22 History metoprolol succinate 25 mg 25 mg PO QAM 08/23/22 10/18/22 History tablet,extended release 24 hr spironolactone 25 mg tablet 25 mg PO QAM 08/23/22 10/18/22 History tolterodine 2 mg capsule,extended 2 mg PO QAM 08/23/22 10/18/22 History release 24 hr lidocaine 4 % topical patch 1 patch topical DAILY #10 ea 08/24/22 10/18/22 Rx Past Med/Surg History Medical History High cholesterol Hypertension Major depression Multiple sclerosis Osteoporosis Surgical History History of breast implant History of colonoscopy History of shoulder surgery R total shoulder replacement Family History Mother Lung cancer Father , 59 [place] Myocardial infarction Sister , 40 Lung cancer Social History Smoking Status: Former smoker Second Hand Exposure: No; Do You Dip or Chew Tobacco: No; Tobacco Cessation Education Requested by Patient: No Hx Alcohol Use: No Hx Substance Use: No Preferred Language: Tam[place] Communication Ability: Effective Ultrasonic Tester Required: No Beliefs That Will Affect Care: None marital status: Current Living Situation: Spouse current occupational status: retired Other Information That Helps Us Care for You: No Feels Safe at Home: Yes Safety Concerns: Feels Safe At This Time Assistive Devices: None Review of Systems Review of Systems: All systems reviewed & are unremarkable except as noted in Subjective Physical Exam Physical Exam: Constitutional: WD/WN, vitals as above, NAD, sitting up in bed, pleasant, conversing easily Respiratory: normal respiratory effort, lungs clear to auscultation, no wheeze, rales, rhonchi. Normal insp/exp effort, no accessory muscle use Cardiovascular: RRR, no murmur, no edema Vessels: no JVD or carotid bruit Chest: normal inspection of chest Abdomen: normal bowel sounds, soft, nontender, no hepatosplenomegaly Musculoskeletal: Painful ROM of right hip. Skin: no rashes, warm and dry normal turgor Neurologic: PERRL, EOMI, accommodation nl, no face palsy, no dysarthria CN's II- XI intact bilaterally and moves all extremities Psychiatric: A+Ox3, euthymic affect Lymphatic: no cervical or axillary lymphadenopathy : deferred Results & Data Results & Data ([facility]) Vital Signs (Past 12 Hours) Vital Signs Temp Pulse Pulse Resp BP BP Pulse Ox 10/18/22 09:23 70 18 152/81 H 98 10/18/22 07:46 72 20 186/104 H 97 10/18/22 06:47 36.8 C 76 18 198/93 H 96 O2 Del Method 10/18/22 09:23 Room Air 10/18/22 07:46 Room Air 10/18/22 06:47 Laboratory Results Laboratory Results WBC 7.71 K/ul (4.8-10.8) 10/18/22 07:25 RBC 4.34 M/uL (3.93-5.22) 10/18/22 07:25 Hgb 13.0 g/dl (12.0-16.0) 10/18/22 07:25 Hct 39.7 % (34.1-44.9) 10/18/22 07:25 MCV 91.5 fL (80.0-100.0) 10/18/22 07:25 MCH 30.0 pg (25.0-34.0) 10/18/22 07:25 MCHC 32.7 g/dL (32.0-36.0) 10/18/22 07:25 RDW Std Deviation 45.7 fL (36.4-46.3) 10/18/22 07:25 RDW Coeff of Michael 13.5 % (11.5-14.5) 10/18/22 07:25 Plt Count 244 K/uL (130-400) 10/18/22 07:25 MPV 10.1 fL (9.4-12.3) 10/18/22 07:25 Immature Gran % (Auto) 0.4 % 10/18/22 07:25 Neut % (Auto) 71.5 % 10/18/22 07:25 Lymph % (Auto) 15.3 % 10/18/22 07:25 [place] % (Auto) 8.3 % 10/18/22 07:25 Eos % (Auto) 3.6 % 10/18/22 07:25 Baso % (Auto) 0.9 % 10/18/22 07:25 Neut # (Auto) 5.51 K/uL (1.4-6.5) 10/18/22 07:25 Lymph # (Auto) 1.18 K/uL (1.2-3.4) L 10/18/22 07:25 [place] # (Auto) 0.64 K/uL (0.24-0.82) 10/18/22 07:25 Eos # (Auto) 0.28 K/uL (0-0.50) 10/18/22 07:25 Baso # (Auto) 0.07 K/uL (0-0.2) 10/18/22 07:25 Immature Gran # (Auto) 0.03 K/uL (0.00-0.02) H 10/18/22 07:25 ESR 18 mm/hr (0-30) 10/18/22 07:25 Sodium 143 mmol/L (136-145) 10/18/22 07:25 Potassium 3.8 mmol/L (3.5-5.1) 10/18/22 07:25 Chloride 109 mmol/L (98-107) H 10/18/22 07:25 Carbon Dioxide 26 mmol/L (21-32) 10/18/22 07:25 Anion Gap 8 (3-11) 10/18/22 07:25 BUN 18 mg/dl (6-23) 10/18/22 07:25 Creatinine 0.64 mg/dl (0.6-1.2) 10/18/22 07:25 Est Cr Clr Drug Dosing 91.4 ml/min 10/18/22 07:25 Est GFR ( Amer) 104.8 ml/min 10/18/22 07:25 Est GFR (Non-Af Amer) 90.4 ml/min 10/18/22 07:25 BUN/Creatinine Ratio 28.1 (10-20) H 10/18/22 07:25 Glucose 99 mg/dl (70-99(Fasting)) 10/18/22 07:25 Calcium 8.4 mg/dl (8.5-10.1) L 10/18/22 07:25 Magnesium 1.9 mg/dl (1.7-2.4) 10/18/22 07:25 C-Reactive Protein 0.75 mg/dl (0-0.5) H 10/18/22 07:25 SARS-CoV-2, RNA, NAAT NEGATIVE (NEGATIVE) 10/18/22 09:20 Impressions Venous Doppler Study 10/18/22 07:03 RIGHT LOWER EXTREMITY VENOUS DOPPLER CLINICAL HISTORY: Right groin/leg pain. COMPARISON STUDY: No previous studies for comparison. TECHNIQUE: Sonography of the deep venous system of the right lower extremity was performed. Compression and augmentation were evaluated. FINDINGS: The right common femoral, superficial femoral and popliteal veins were compressible. Augmentation was normal. Flow was shown within the deep calf vessels. IMPRESSION: No evidence of deep venous thrombus within the right lower extremity. ACT 112: Negative or not required by law. Electronically signed by: Storm Beck M.D. 10/18/2022 8:15 AM Hip/Pelvis X-Ray 10/18/22 10:08 XR hip RT 2V w pelvis HISTORY: 72 years-old Female RIght hip pain, ?OA chronic right hip pain COMPARISON: None TECHNIQUE: AP view of the pelvis with 2 views of the right hip FINDINGS: Mild to moderate left hip with severe right hip osteoarthritis. Demineralized appearance of the bones. There is an ill-defined linear lucency with peripheral sclerosis involving the medial aspect of the right acetabulum. No acute fracture, dislocation or avascular necrosis identified. Unremarkable soft tiss ues. IMPRESSION: 1. No acute fracture or dislocation. 2. Severe right hip osteoarthritis. 3. Peripherally sclerotic irregular lucency involving the medial wall right acetabulum may be projectional or represent a subacute to chronic nondisplaced fracture. ACT 112: Negative or not required by law. The above report was generated using voice recognition software. It may contain grammatical, syntax or spelling errors. Electronically signed by: Roque Lopez M.D. 10/18/2022 10:56 AM
[2022-10-18] MEDS ORDERED: ACETAMINOPHEN 325 MG TAB PO PRN (11:45)
[2022-10-18] MEDS: SERTRALINE HCL 50 MG TABLET PO SCH (12:23)
[2022-10-18] MEDS: LOSARTAN POTASSIUM 25 MG TAB PO SCH (12:23)
[2022-10-18] MEDS: METOPROLOL SUCC 25MG EXT REL TAB PO SCH (12:23)
[2022-10-18] MEDS: TOLTERODINE TARTRATE LA 2 MG CAPCR PO SCH (12:23)
[2022-10-18] MEDS: FUROSEMIDE 20 MG TAB PO SCH (12:23)
[2022-10-18] MEDS: SPIRONOLACTONE 25 MG TAB PO SCH (12:23)
[2022-10-18 15:55] LABS: Appearance Urine Clear (Clear); Bacteria Urine Automated 1+ (Negative); Bilirubin Urine Negative (Negative); Blood Urine Negative (Negative); Cast Urine Automated 0 /lpf (0-5); Color Urine Yellow; Epithelial Cell Urine Auto 0-5 /lpf (0-5); Glucose Urine UA Negative (Negative); Ketones Urine Negative (Negative); Leukocyte Esterase Urine 1+ (Negative); Nitrite Urine Positive (Negative); Protein Urine Negative (Negative); RBC Urine Automated 0-4 /hpf (0-4); Specific Gravity Urine 1.015 (1.000-1.030); Urobilinogen Urine Negative (Negative); pH Urine 5.5 (4.5-7.5)
[2022-10-18] MEDS: oxyCODONE HCL IR 5 MG TAB (IMMEDIATE RELEASE) PO PRN (17:37)
--- NOTE | 2022-10-18 19:26 | Orthopedic Consultation ---
Date of Service October 18, 2022 Assessment & Plan (1) Primary osteoarthritis of right hip: I think she is mostly dealing with the osteoarthritis of her right hip. She denies any falls or traumas. I would like to get a CT scan of the right hip to make sure that there is no acute fracture there. She will ultimately need a hip replacement surgery. I will contact [facility] and have them take over care from here. History of Present Illness Reason for Consultation: Osteoarthritis of the right hip. Requesting Physician: . Attending Physician: Aly Díaz MD Jo is a pleasant 72-year-old female who recently underwent a left knee replacement by Dr. Basurto with [facility]. She did have an a year- long history of right hip pain but is been worse since her knee was replaced. Her hip pain has become debilitating. She is tried extensive physical therapy. Over the past week or so she has been almost nonambulatory because of her right hip. She came to the emergency room. Radiographs demonstrated a questionable fracture of the acetabulum. She was admitted to the medical service. Orthopedics was consulted to evaluate and treat.. Allergies Allergy/AdvReac Type Severity Reaction Status Date / Time No Known Allergies Allergy Unverified 08/23/22 21:12 Home Medications Medication Instructions Recorded Confirmed Type alendronate 70 mg tablet 70 mg PO WK 03/19/22 10/18/22 History aspirin 81 mg tablet,delayed 81 mg PO DAILY 03/19/22 10/18/22 History release atorvastatin 10 mg tablet 10 mg PO Q2D 03/19/22 10/18/22 History oxycodone-acetaminophen 5 mg-325 1 tab PO .EVERY 4-6 HRS PRN Pain 03/19/22 10/18/22 History mg tablet sertraline 25 mg tablet 25 mg PO QAM 03/19/22 10/18/22 History apixaban 5 mg tablet (Eliquis) 5 mg PO BID 08/23/22 10/18/22 History furosemide 20 mg tablet 20 mg PO QAM 08/23/22 10/18/22 History losartan 25 mg tablet 25 mg PO QAM 08/23/22 10/18/22 History metoprolol succinate 25 mg 25 mg PO QAM 08/23/22 10/18/22 History tablet,extended release 24 hr spironolactone 25 mg tablet 25 mg PO QAM 08/23/22 10/18/22 History tolterodine 2 mg capsule,extended 2 mg PO QAM 08/23/22 10/18/22 History release 24 hr lidocaine 4 % topical patch 1 patch topical DAILY #10 ea 08/24/22 10/18/22 Rx Past Med/Surg History Medical History Ambulatory dysfunction Atrial flutter with rapid ventricular response Chest pain Left knee pain Major depression Osteoporosis Weakness Surgical History History of breast implant History of colonoscopy History of shoulder surgery R total shoulder replacement Family History Mother Lung cancer Father , 59 [place] Myocardial infarction Sister , 40 Lung cancer Social History Smoking Status: Former smoker Second Hand Exposure: No; Do You Dip or Chew Tobacco: No; Tobacco Cessation Education Requested by Patient: No Hx Alcohol Use: No Hx Substance Use: No Preferred Language: Swedish Communication Ability: Effective 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 Physical Exam On physical examination of the right hip, she has decreased range of motion. She has some pain with forced internal and external rotation. Most of her pain is located in her groin.. Constitutional WD/WN, vitals as above Eyes PERRL, conjunctivae normal, anicteric sclerae ENMT external ear and nose normal, oropharynx normal Neck trachea midline, no thyromegaly Respiratory normal respiratory effort, lungs clear to auscultation Cardiovascular RRR, no murmur, no edema Gastrointestinal (Abdomen) normal bowel sounds, soft, nontender, no hepatosplenomegaly Skin no rashes, warm and dry Psychiatric A+Ox3, euthymic affect Results & Data Results & Data Laboratory Results . Diagnostic Findings X-rays of the right hip and pelvis show severe osteoarthritis of the right hip with joint space narrowing, osteophyte formation, and [id number] to condition. There is a questionable fracture of the acetabulum.. PG Care Time/CCT Total # of Minutes Spent Total Time Spent with Patient: Total time spent is greater than 50% in coordination of care (as documented) at patient's floor/unit and/or counseling patient: Coding Level of Care Code 23725 Inpt Consult Level 4 Diagnoses Primary osteoarthritis of right hip M16.11
[2022-10-19] MEDS: MoRPHine SULFATE 2 MG/ML CARP IV PRN ×4 (04:36→23:37)
[2022-10-19] MEDS: oxyCODONE HCL IR 5 MG TAB (IMMEDIATE RELEASE) PO PRN ×2 (05:45→11:45)
--- NOTE | 2022-10-19 07:17 | CT Scan Report ---
RIGHT HIP CT CT DOSE: 772.01 mGy.cm HISTORY: Right hip pain. possible acetabular fracture, needs LUCERO TECHNIQUE: Multiaxial CT images of the right hip were performed and reformatted in the sagittal and c oronal plane without the use of contrast. A dose lowering technique was utilized adhering to the ralph Pickett. COMPARISON: Right hip radiograph 10/18/2022. FINDINGS: There is severe osteoarthritis again noted within the right hip. No acute fracture or dislo cation. The visualized pelvic bones are intact. No soft tissue hematoma or significant hip effusion. Mild subcutaneous edema within the lateral aspect of the right hip. IMPRESSION: 1. No acute fracture or dislocation within the right hip. 2. Severe osteoarthritis within the right hip again noted. ACT 112: Negative or not required by law. Electronically signed by: Wilberto Manjarrez M.D. 10/19/2022 7:16 AM
[2022-10-19 08:33] LABS: Basophils # (auto) 0.04 K/uL (0-0.2); Basophils % (auto) 0.6 %; Eosinophils # (auto) 0.21 K/uL (0-0.50); Eosinophils % (auto) 3.4 %; Hematocrit (blood only) 38.5 % (34.1-44.9); Hemoglobin 12.6 g/dl (12.0-16.0); Immature Granulocytes # (auto) 0.03 K/uL (0.00-0.02); Immature Granulocytes % (auto) 0.5 %; Lymphocytes # (auto) 1.55 K/uL (1.2-3.4); Lymphocytes % (auto) 24.9 %; Mean Corpuscular Hemoglobin 29.4 pg (25.0-34.0); Mean Corpuscular Hgb Conc 32.7 g/dL (32.0-36.0); Mean Platelet Volume 10.1 fL (9.4-12.3); Monocytes # (auto) 0.57 K/uL (0.24-0.82); Monocytes % (auto) 9.2 %; Neutrophils # (auto) 3.82 K/uL (1.4-6.5); Neutrophils % (auto) 61.4 %; Platelet Count 231 K/uL (130-400); RDW Coefficient of Variation 13.6 % (11.5-14.5); Red Blood Count 4.28 M/uL (3.93-5.22); White Blood Count 6.22 K/ul (4.8-10.8)
[2022-10-19] MEDS: SERTRALINE HCL 50 MG TABLET PO SCH (08:39)
[2022-10-19] MEDS: TOLTERODINE TARTRATE LA 2 MG CAPCR PO SCH (08:39)
[2022-10-19] MEDS: LOSARTAN POTASSIUM 25 MG TAB PO SCH (08:39)
[2022-10-19] MEDS: METOPROLOL SUCC 25MG EXT REL TAB PO SCH (08:39)
[2022-10-19] MEDS: ATORVASTATIN 10 MG TAB PO SCH (08:40)
[2022-10-19] MEDS: FUROSEMIDE 20 MG TAB PO SCH (08:40)
[2022-10-19] MEDS: SPIRONOLACTONE 25 MG TAB PO SCH (08:40)
--- NOTE | 2022-10-19 08:52 | Electrocardiogram Report ---
Test Reason : Blood Pressure : / mmHG Vent. Rate : 066 BPM Atrial Rate : 066 BPM P-R Int : 178 ms QRS Dur : 090 ms QT Int : 438 ms P-R-T Axes : 049 006 036 degrees QTc Int : 459 ms Normal sinus rhythm Normal ECG When compared with ECG of 22-MAR-2022 13:53, Sinus rhythm has replaced Atrial flutter T wave inversion no longer evident in Inferior leads T wave inversion no longer evident in Anterolateral leads Confirmed by Nino Woodruff ([id number]) on 10/19/2022 8:52:05 AM Referred By: Bess Song Confirmed By:Nino Woodruff
[2022-10-19 08:57] LABS: BUN Creatinine Ratio 15.4 (10-20); Calcium 8.7 mg/dl (8.5-10.1); Creatinine Clr Calc Pharmacy 72.8 ml/min; Est GFR (African American) 89.3 ml/min; Potassium 3.7 mmol/L (3.5-5.1)
--- NOTE | 2022-10-19 09:00 | Electrocardiogram Report ---
Test Reason : Blood Pressure : / mmHG Vent. Rate : 063 BPM Atrial Rate : 063 BPM P-R Int : 182 ms QRS Dur : 076 ms QT Int : 418 ms P-R-T Axes : 059 005 027 degrees QTc Int : 427 ms Poor data quality, interpretation may be adversely affected Normal sinus rhythm Left atrial enlargement Borderline ECG When compared with ECG of 18-OCT-2022 15:40, No significant change Confirmed by Nino Woodruff ([id number]) on 10/19/2022 9:00:04 AM Referred By: Bess Song Confirmed By:Nino Woodruff
--- NOTE | 2022-10-19 09:51 | Hospitalist Progress Note ---
Date of Service October 19, 2022 Assessment & Plan (1) Primary osteoarthritis of right hip: (2) Ambulatory dysfunction: Plan: History of severe groin pain; failed outpatient PT OT. Recent outpatient x-ray shows severe osteoarthritis on right hip X-ray during the hospitalization shows severe right hip osteoarthritis; peripherally sclerotic irregular lucency involving the medial wall right acetabulum. Afebrile, normotensive and saturating well on room air. Orthopedic consulted; CT of the hip obtained; no acute fracture/dislocation. Severe osteoarthritis present. Plan; [facility] orthopedic to evaluate patient for possible surgery. Pain control PT OT evaluation; patient is interested in inpatient rehab if needed. Currently her Eliquis and aspirin are on hold for anticipated procedure. If no plan for any procedure for now, will resume the medications. (3) Atrial flutter: (4) Tachycardia induced cardiomyopathy: (5) HFrEF (heart failure with reduced ejection fraction): Plan: History of a flutter on Eliquis Last echo showed reduced EF; likely due to tachycardia induced cardiomyopathy Will obtain echo and baseline EKG. Eliquis and aspirin on hold given possibility of surgery Losartan, spironolactone and metoprolol are resumed. Continue Lipitor (6) Asymptomatic bacteriuria: Plan: Urine culture positive for E. coli. Patient denies any signs and symptoms of UTI. No antibiotic indicated for now. Admission and Anticipated Discharge Date Admission Date: October 18, 2022 Subjective Patient seen and examined at bedside. She is comfortably lying on the bed; not in any distress. Reports pain in her right groin which is improved with pain medications. Review of Systems Review of Systems: All systems reviewed & are unremarkable except as noted in Subjective Physical Exam Physical Exam: Constitutional: WD/WN, vitals as above, NAD, sitting up in bed, pleasant, conversing easily Respiratory: normal respiratory effort, lungs clear to auscultation, no wheeze, rales, rhonchi. Normal insp/exp effort, no accessory muscle use Cardiovascular: RRR, no murmur, no edema Vessels: no JVD or carotid bruit Chest: normal inspection of chest Abdomen: normal bowel sounds, soft, nontender, no hepatosplenomegaly Musculoskeletal: Painful ROM of right hip. Skin: no rashes, warm and dry normal turgor Neurologic: PERRL, EOMI, accommodation nl, no face palsy, no dysarthria CN's II- XI intact bilaterally and moves all extremities Psychiatric: A+Ox3, euthymic affect Lymphatic: no cervical or axillary lymphadenopathy : deferred Results & Data Results & Data ([facility]) Vital Signs (Past 12 Hours) Vital Signs Temp Pulse Pulse Resp BP Pulse Ox O2 Del Method 10/19/22 07:10 Room Air 10/19/22 07:10 69 10/19/22 06:01 69 10/19/22 06:42 36.6 C 64 18 146/79 H 93 Room Air 10/19/22 04:06 36.7 C 68 18 145/68 H 95 Room Air 10/19/22 00:02 66 10/18/22 23:38 37.1 C 67 20 130/69 96 Room Air Laboratory Results Laboratory Results WBC 6.22 K/ul (4.8-10.8) 10/19/22 08:06 RBC 4.28 M/uL (3.93-5.22) 10/19/22 08:06 Hgb 12.6 g/dl (12.0-16.0) 10/19/22 08:06 Hct 38.5 % (34.1-44.9) 10/19/22 08:06 MCV 90.0 fL (80.0-100.0) 10/19/22 08:06 MCH 29.4 pg (25.0-34.0) 10/19/22 08:06 MCHC 32.7 g/dL (32.0-36.0) 10/19/22 08:06 RDW Std Deviation 45.0 fL (36.4-46.3) 10/19/22 08:06 RDW Coeff of Michael 13.6 % (11.5-14.5) 10/19/22 08:06 Plt Count 231 K/uL (130-400) 10/19/22 08:06 MPV 10.1 fL (9.4-12.3) 10/19/22 08:06 Immature Gran % (Auto) 0.5 % 10/19/22 08:06 Neut % (Auto) 61.4 % 10/19/22 08:06 Lymph % (Auto) 24.9 % 10/19/22 08:06 [place] % (Auto) 9.2 % 10/19/22 08:06 Eos % (Auto) 3.4 % 10/19/22 08:06 Baso % (Auto) 0.6 % 10/19/22 08:06 Neut # (Auto) 3.82 K/uL (1.4-6.5) 10/19/22 08:06 Lymph # (Auto) 1.55 K/uL (1.2-3.4) 10/19/22 08:06 [place] # (Auto) 0.57 K/uL (0.24-0.82) 10/19/22 08:06 Eos # (Auto) 0.21 K/uL (0-0.50) 10/19/22 08:06 Baso # (Auto) 0.04 K/uL (0-0.2) 10/19/22 08:06 Immature Gran # (Auto) 0.03 K/uL (0.00-0.02) H 10/19/22 08:06 ESR 18 mm/hr (0-30) 10/18/22 07:25 Sodium 141 mmol/L (136-145) 10/19/22 08:06 Potassium 3.7 mmol/L (3.5-5.1) 10/19/22 08:06 Chloride 106 mmol/L (98-107) 10/19/22 08:06 Carbon Dioxide 30 mmol/L (21-32) 10/19/22 08:06 Anion Gap 5 (3-11) 10/19/22 08:06 BUN 12 mg/dl (6-23) 10/19/22 08:06 Creatinine 0.78 mg/dl (0.6-1.2) 10/19/22 08:06 Est Cr Clr Drug Dosing 72.8 ml/min 10/19/22 08:06 Est GFR ( Amer) 89.3 ml/min 10/19/22 08:06 Est GFR (Non-Af Amer) 77.0 ml/min 10/19/22 08:06 BUN/Creatinine Ratio 15.4 (10-20) 10/19/22 08:06 Glucose 94 mg/dl (70-99(Fasting)) 10/19/22 08:06 Calcium 8.7 mg/dl (8.5-10.1) 10/19/22 08:06 Magnesium 1.9 mg/dl (1.7-2.4) 10/18/22 07:25 C-Reactive Protein 0.75 mg/dl (0-0.5) H 10/18/22 07:25 Urine Color Yellow 10/18/22 15:25 Urine Appearance Clear (Clear) 10/18/22 15:25 Urine pH 5.5 (4.5-7.5) 10/18/22 15:25 Ur Specific [place] 1.015 (1.000-1.030) 10/18/22 15:25 Urine Protein Negative (Negative) 10/18/22 15:25 Urine Glucose (UA) Negative (Negative) 10/18/22 15:25 Urine Ketones Negative (Negative) 10/18/22 15:25 Urine Blood Negative (Negative) 10/18/22 15:25 Urine Nitrite Positive (Negative) A 10/18/22 15:25 Urine Bilirubin Negative (Negative) 10/18/22 15:25 Urine Urobilinogen Negative (Negative) 10/18/22 15:25 Ur Leukocyte Esterase 1+ (Negative) H 10/18/22 15:25 Urine WBC (Auto) 10-30 /hpf (0-5) H 10/18/22 15:25 Urine RBC (Auto) 0-4 /hpf (0-4) 10/18/22 15:25 U Hyaline Cast (Auto) 0 /lpf (0-5) 10/18/22 15:25 U Epithel Cells (Auto) 0-5 /lpf (0-5) 10/18/22 15:25 Urine Bacteria (Auto) 1+ (Negative) H 10/18/22 15:25 SARS-CoV-2, RNA, NAAT NEGATIVE (NEGATIVE) 10/18/22 09:20 Impressions Venous Doppler Study 10/18/22 07:03 RIGHT LOWER EXTREMITY VENOUS DOPPLER CLINICAL HISTORY: Right groin/leg pain. COMPARISON STUDY: No previous studies for comparison. TECHNIQUE: Sonography of the deep venous system of the right lower extremity was performed. Compression and augmentation were evaluated. FINDINGS: The right common femoral, superficial femoral and popliteal veins were compressible. Augmentation was normal. Flow was shown within the deep calf vessels. IMPRESSION: No evidence of deep venous thrombus within the right lower extremity. ACT 112: Negative or not required by law. Electronically signed by: Storm Beck M.D. 10/18/2022 8:15 AM Hip/Pelvis X-Ray 10/18/22 10:08 XR hip RT 2V w pelvis HISTORY: 72 years-old Female RIght hip pain, ?OA chronic right hip pain COMPARISON: None TECHNIQUE: AP view of the pelvis with 2 views of the right hip FINDINGS: Mild to moderate left hip with severe right hip osteoarthritis. Demineralized appearance of the bones. There is an ill-defined linear lucency with peripheral sclerosis involving the medial aspect of the right acetabulum. No acute fracture, dislocation or avascular necrosis identified. Unremarkable soft tissues. IMPRESSION: 1. No acute fracture or dislocation. 2. Severe right hip osteoarthritis. 3. Peripherally sclerotic irregular lucency involving the medial wall right a cetabulum may be projectional or represent a subacute to chronic nondisplaced fracture. ACT 112: Negative or not required by law. The above report was generated using voice recognition software. It may contain grammatical, syntax or spelling errors. Electronically signed by: Roque Lopez M.D. 10/18/2022 10:[address] 10/18/22 18:[address] DOSE: 772.01 mGy.cm HISTORY: Right hip pain. possible acetabular fracture, needs LUCERO TECHNIQUE: Multiaxial CT images of the right hip were performed and reformatted in the sagittal and coronal plane without the use of contrast. A dose lowering technique was utilized adhering to the principles of ALARA. COMPARISON: Right hip radiograph 10/18/2022. FINDINGS: There is severe osteoarthritis again noted within the right hip. No acute fracture or dislocation. The visualized pelvic bones are intact. No soft tissue hematoma or significant hip effusion. Mild subcutaneous edema within the lateral aspect of the right hip. IMPRESSION: 1. No acute fracture or dislocation within the right hip. 2. Severe osteoarthritis within the right hip again noted. ACT 112: Negative or not required by law. Electronically signed by: Wilberto Manjarrez M.D. 10/19/2022 7:16 AM
[2022-10-20] MEDS: oxyCODONE HCL IR 5 MG TAB (IMMEDIATE RELEASE) PO PRN ×3 (01:31→13:05)
[2022-10-20] MEDS: MoRPHine SULFATE 2 MG/ML CARP IV PRN ×2 (07:53→18:15)
[2022-10-20] MEDS: SPIRONOLACTONE 25 MG TAB PO SCH (08:16)
[2022-10-20] MEDS: LOSARTAN POTASSIUM 25 MG TAB PO SCH (08:16)
[2022-10-20] MEDS: METOPROLOL SUCC 25MG EXT REL TAB PO SCH (08:16)
[2022-10-20] MEDS: FUROSEMIDE 20 MG TAB PO SCH (08:17)
[2022-10-20] MEDS: TOLTERODINE TARTRATE LA 2 MG CAPCR PO SCH (08:17)
[2022-10-20] MEDS: SERTRALINE HCL 50 MG TABLET PO SCH (08:17)
[2022-10-20] MEDS: APIXABAN 5 MG TABLET PO SCH ×2 (08:20→20:44)
[2022-10-20] MEDS: ASPIRIN 81 MG ECTAB PO SCH (08:20)
--- NOTE | 2022-10-20 09:49 | Hospitalist Progress Note ---
Date of Service October 20, 2022 Assessment & Plan (1) Primary osteoarthritis of right hip: (2) Ambulatory dysfunction: Plan: History of severe groin pain; failed outpatient PT OT. Recent outpatient x-ray shows severe osteoarthritis on right hip X-ray during the hospitalization shows severe right hip osteoarthritis; peripherally sclerotic irregular lucency involving the medial wall right acetabulum. Afebrile, normotensive and saturating well on room air. Orthopedic consulted; CT of the hip obtained; no acute fracture/dislocation. Severe osteoarthritis present. Plan; Outpatient follow-up with orthopedic after rehab. [facility]; discharge if accepted. Pain control Will resume her Eliquis and aspirin as patient is not being planned to undergo any procedure for now. (3) Atrial flutter: (4) Tachycardia induced cardiomyopathy: (5) HFrEF (heart failure with reduced ejection fraction): Plan: History of a flutter on Eliquis Last echo showed reduced EF; likely due to tachycardia induced cardiomyopathy Echo during the admission showed improvement in the ejection fraction with EF of 55 to 60% with no segmental wall motion abnormality. Continue on home medication. (6) Asymptomatic bacteriuria: Plan: Urine culture positive for E. coli. Patient denies any signs and symptoms of UTI. No antibiotic indicated for now. Plan DVT Eliquis CODE STATUS DNR/DNI Admission and Anticipated Discharge Date Admission Date: October 18, 2022 Subjective Patient seen and examined at bedside. She is comfortable lying in the bed; not in any distress. Reports that her pain has improved. Review of Systems Review of Systems: All systems reviewed & are unremarkable except as noted in Subjective Physical Exam Physical Exam: Constitutional: WD/WN, vitals as above, NAD, sitting up in bed, pleasant, conversing easily Respiratory: normal respiratory effort, lungs clear to auscultation, no wheeze, rales, rhonchi. Normal insp/exp effort, no accessory muscle use Cardiovascular: RRR, no murmur, no edema Vessels: no JVD or carotid bruit Chest: normal inspection of chest Abdomen: normal bowel sounds, soft, nontender, no hepatosplenomegaly Musculoskeletal: Painful ROM of right hip. Skin: no rashes, warm and dry normal turgor Neurologic: PERRL, EOMI, accommodation nl, no face palsy, no dysarthria CN's II- XI intact bilaterally and moves all extremities Psychiatric: A+Ox3, euthymic affect Lymphatic: no cervical or axillary lymphadenopathy : deferred Results & Data Results & Data ([facility]) Vital Signs (Past 12 Hours) Vital Signs Temp Pulse Pulse Resp BP Pulse Ox O2 Del Method 10/20/22 07:56 36.9 C 66 18 130/78 95 Room Air 10/20/22 02:44 36.5 C 63 16 154/82 H 93 Room Air 10/19/22 23:54 Room Air 10/19/22 23:53 61 10/19/22 22:40 36.8 C 60 16 137/79 94 Room Air Laboratory Results Laboratory Results WBC 6.22 K/ul (4.8-10.8) 10/19/22 08:06 RBC 4.28 M/uL (3.93-5.22) 10/19/22 08:06 Hgb 12.6 g/dl (12.0-16.0) 10/19/22 08:06 Hct 38.5 % (34.1-44.9) 10/19/22 08:06 MCV 90.0 fL (80.0-100.0) 10/19/22 08:06 MCH 29.4 pg (25.0-34.0) 10/19/22 08:06 MCHC 32.7 g/dL (32.0-36.0) 10/19/22 08:06 RDW Std Deviation 45.0 fL (36.4-46.3) 10/19/22 08:06 RDW Coeff of Michael 13.6 % (11.5-14.5) 10/19/22 08:06 Plt Count 231 K/uL (130-400) 10/19/22 08:06 MPV 10.1 fL (9.4-12.3) 10/19/22 08:06 Immature Gran % (Auto) 0.5 % 10/19/22 08:06 Neut % (Auto) 61.4 % 10/19/22 08:06 Lymph % (Auto) 24.9 % 10/19/22 08:06 [place] % (Auto) 9.2 % 10/19/22 08:06 Eos % (Auto) 3.4 % 10/19/22 08:06 Baso % (Auto) 0.6 % 10/19/22 08:06 Neut # (Auto) 3.82 K/uL (1.4-6.5) 10/19/22 08:06 Lymph # (Auto) 1.55 K/uL (1.2-3.4) 10/19/22 08:06 [place] # (Auto) 0.57 K/uL (0.24-0.82) 10/19/22 08:06 Eos # (Auto) 0.21 K/uL (0-0.50) 10/19/22 08:06 Baso # (Auto) 0.04 K/uL (0-0.2) 10/19/22 08:06 Immature Gran # (Auto) 0.03 K/uL (0.00-0.02) H 10/19/22 08:06 ESR 18 mm/hr (0-30) 10/18/22 07:25 Sodium 141 mmol/L (136-145) 10/19/22 08:06 Potassium 3.7 mmol/L (3.5-5.1) 10/19/22 08:06 Chloride 106 mmol/L (98-107) 10/19/22 08:06 Carbon Dioxide 30 mmol/L (21-32) 10/19/22 08:06 Anion Gap 5 (3-11) 10/19/22 08:06 BUN 12 mg/dl (6-23) 10/19/22 08:06 Creatinine 0.78 mg/dl (0.6-1.2) 10/19/22 08:06 Est Cr Clr Drug Dosing 72.8 ml/min 10/19/22 08:06 Est GFR ( Amer) 89.3 ml/min 10/19/22 08:06 Est GFR (Non-Af Amer) 77.0 ml/min 10/19/22 08:06 BUN/Creatinine Ratio 15.4 (10-20) 10/19/22 08:06 Glucose 94 mg/dl (70-99(Fasting)) 10/19/22 08:06 Calcium 8.7 mg/dl (8.5-10.1) 10/19/22 08:06 Magnesium 1.9 mg/dl (1.7-2.4) 10/18/22 07:25 C-Reactive Protein 0.75 mg/dl (0-0.5) H 10/18/22 07:25 Urine Color Yellow 10/18/22 15:25 Urine Appearance Clear (Clear) 10/18/22 15:25 Urine pH 5.5 (4.5-7.5) 10/18/22 15:25 Ur Specific [place] 1.015 (1.000-1.030) 10/18/22 15:25 Urine Protein Negative (Negative) 10/18/22 15:25 Urine Glucose (UA) Negative (Negative) 10/18/22 15:25 Urine Ketones Negative (Negative) 10/18/22 15:25 Urine Blood Negative (Negative) 10/18/22 15:25 Urine Nitrite Positive (Negative) A 10/18/22 15:25 Urine Bilirubin Negative (Negative) 10/18/22 15:25 Urine Urobilinogen Negative (Negative) 10/18/22 15:25 Ur Leukocyte Esterase 1+ (Negative) H 10/18/22 15:25 Urine WBC (Auto) 10-30 /hpf (0-5) H 10/18/22 15:25 Urine RBC (Auto) 0-4 /hpf (0-4) 10/18/22 15:25 U Hyaline Cast (Auto) 0 /lpf (0-5) 10/18/22 15:25 U Epithel Cells (Auto) 0-5 /lpf (0-5) 10/18/22 15:25 Urine Bacteria (Auto) 1+ (Negative) H 10/18/22 15:25 SARS-CoV-2, RNA, NAAT NEGATIVE (NEGATIVE) 10/18/22 09:20 Impressions Venous Doppler Study 10/18/22 07:03 RIGHT LOWER EXTREMITY VENOUS DOPPLER CLINICAL HISTORY: Right groin/leg pain. COMPARISON STUDY: No previous studies for comparison. TECHNIQUE: Sonography of the deep venous system of the right lower extremity was performed. Compression and augmentation were evaluated. FINDINGS: The right common femoral, superficial femoral and popliteal veins were compressible. Augmentation was normal. Flow was shown within the deep calf vessels. IMPRESSION: No evidence of deep venous thrombus within the right lower extremity. ACT 112: Negative or not required by law. Electronically signed by: Storm Beck M.D. 10/18/2022 8:15 AM Hip/Pelvis X-Ray 10/18/22 10:08 XR hip RT 2V w pelvis HISTORY: 72 years-old Female RIght hip pain, ?OA chronic right hip pain COMPARISON: None TECHNIQUE: AP view of the pelvis with 2 views of the right hip FINDINGS: Mild to moderate left hip with severe right hip osteoarthritis. Demineralized appearance of the bones. There is an ill-defined linear lucency with peripheral sclerosis involving the medial aspect of the right acetabulum. No acute fracture, dislocation or avascular necrosis identified. Unremarkable soft tissues. IMPRESSION: 1. No acute fracture or dislocation. 2. Severe right hip osteoarthritis. 3. Peripherally sclerotic irregular lucency involving the medial wall right acetabulum may be projectional or represent a subacute to chronic nondisplaced fracture. ACT 112: Negative or not required by law. The above report was generated using voice recognition software. It may contain grammatical, syntax or spelling errors. Electronically signed by: Roque Lopez M.D. 10/18/2022 10:[address] 10/18/22 18:[address] DOSE: 772.01 mGy.cm HISTORY: Right hip pain. possible acetabular fracture, needs LUCERO TECHNIQUE: Multiaxial CT images of the right hip were performed and reformatted in the sagittal and coronal plane without the use of contrast. A dose lowering technique was utilized adhering to the principles of ALARA. COMPARISON: Right hip radiograph 10/18/2022. FINDINGS: There is severe osteoarthritis again noted within the right hip. No acute fracture or dislocation. The visualized pelvic bones are intact. No soft tissue hematoma or significant hip effusion. Mild subcutaneous edema within the lateral aspect of the right hip. IMPRESSION: 1. No acute fracture or dislocation within the right hip. 2. Severe osteoarthritis within the right hip again noted. ACT 112: Negative or not required by law. Electronically signed by: Wilberto Manjarrez M.D. 10/19/2022 7:16 AM
[2022-10-21] MEDS: oxyCODONE HCL IR 5 MG TAB (IMMEDIATE RELEASE) PO PRN ×2 (01:01→07:39)
[2022-10-21] MEDS: MoRPHine SULFATE 2 MG/ML CARP IV PRN ×2 (04:19→11:17)
[2022-10-21] MEDS: SPIRONOLACTONE 25 MG TAB PO SCH (09:14)
[2022-10-21] MEDS: METOPROLOL SUCC 25MG EXT REL TAB PO SCH (09:14)
[2022-10-21] MEDS: TOLTERODINE TARTRATE LA 2 MG CAPCR PO SCH (09:16)
[2022-10-21] MEDS: LOSARTAN POTASSIUM 25 MG TAB PO SCH (09:16)
[2022-10-21] MEDS: FUROSEMIDE 20 MG TAB PO SCH (09:16)
[2022-10-21] MEDS: SERTRALINE HCL 50 MG TABLET PO SCH (09:17)
[2022-10-21] MEDS: ATORVASTATIN 10 MG TAB PO SCH (09:19)
[2022-10-21] MEDS: ASPIRIN 81 MG ECTAB PO SCH (09:22)
--- NOTE | 2022-10-21 09:49 | Discharge Summary ---
Date of Service October 21, 2022 Admission HPI Per Admitting Provider Past medical history of hyperlipidemia, A. 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 History of TOO thrombus in [place] 03/2022; no thrombus seen in . Underwent left knee arthroplasty for osteoarthritis on 07/[address] Roque Basurto. Last confinement in August 24 due to right knee pain. Discharged home with plan to continue with home PT OT. Patient presents to the emergency department due to right groin pain which has been persistent for several months despite extensive physical therapy. The pain radiate down her thigh to the knee; she denies any numbness/weakness of her legs. She had undergone physical therapy at home. She also had recent x-ray done by her primary care doctor of the hip which showed severe osteoarthritis. Patient reports that she was not able to get up from her bed today due to severe pain. She wanted to have orthopedic evaluation; is open to idea for possible surgery. She is also interested in inpatient rehab. Patient denies fever, chills, chest pain, shortness of breath, abdominal pain or urinary symptoms. She is compliant with her medications. She is due for an echo to follow-up on her tachycardia induced cardiomyopathy. She had followed up with Dr. Jackson in June prior to her knee replacement. Principal Diagnosis (1) Primary osteoarthritis of right hip: (2) Ambulatory dysfunction (3) Atrial flutter: (4) Tachycardia induced cardiomyopathy: (5) HFrEF (heart failure with reduced ejection fraction (6) Asymptomatic bacteriuria Discharge Exam Constitutional: WD/WN, vitals as above, NAD, sitting up in bed, pleasant, conversing easily Respiratory: normal respiratory effort, lungs clear to auscultation, no wheeze, rales, rhonchi. Normal insp/exp effort, no accessory muscle use Cardiovascular: RRR, no murmur, no edema Vessels: no JVD or carotid bruit Chest: normal inspection of chest Abdomen: normal bowel sounds, soft, nontender, no hepatosplenomegaly Musculoskeletal: Painful ROM of right hip. Skin: no rashes, warm and dry normal turgor Neurologic: PERRL, EOMI, accommodation nl, no face palsy, no dysarthria CN's II- XI intact bilaterally and moves all extremities Psychiatric: A+Ox3, euthymic affect Lymphatic: no cervical or axillary lymphadenopathy : deferred Discharge Data Allergies Allergy/AdvReac Type Severity Reaction Status Date / Time No Known Allergies Allergy Unverified 08/23/22 21:12 Consultations 10/18/22 10:08 Consult Orthopedic Surgery Routine 10/18/22 10:11 ED Decision to Admit Stat Ordered Studies 10/18/22 07:03 US venous doppler LE RT Stat 10/18/22 18:56 CT hip RT wo con Urgent Hospital Course (1) Primary osteoarthritis of right hip: (2) Ambulatory dysfunction: History of severe groin pain; failed outpatient PT OT. Recent outpatient x-ray shows severe osteoarthritis on right hip X-ray during the hospitalization shows severe right hip osteoarthritis; peripherally sclerotic irregular lucency involving the medial wall right acetabulum. Afebrile, normotensive and saturating well on room air. Orthopedic consulted; CT of the hip obtained; no acute fracture/dislocation. Severe osteoarthritis present. Plan; Outpatient follow-up with orthopedic after rehab. Discharged to [facility] for continuation of physical therapy. Follow-up with orthopedic on November 05 for evaluation of hip replacement. (3) Atrial flutter: (4) Tachycardia induced cardiomyopathy: (5) HFrEF (heart failure with reduced ejection fraction): History of a flutter on Eliquis Last echo showed reduced EF; likely due to tachycardia induced cardiomyopathy Echo during the admission showed improvement in the ejection fraction with EF of 55 to 60% with no segmental wall motion abnormality. Continue on home medication. (6) Asymptomatic bacteriuria: Urine culture positive for E. coli. Patient denies any signs and symptoms of UTI. No antibiotic indicated Total Time Total Time Spent Total Time Spent (In Minutes): 35 Total Time Includes: Examination of the Patient, Discharge Planning, Medication Reconciliation, Communication With Other Providers and Other Discharge Plan Discharge Items Patient Disposition: Transfer Inpatient Rehab Fac Reason For Visit: RIGHT KNEE PAIN Discharge Diagnosis: Primary osteoarthritis of right hip: Ambulatory dysfunction: Asymptomatic bacteriuria Activity: Resume your previous activity Non-emergency contact: Primary Care Provider Call non-emergency contact if: you have any medication questions and your symptoms worsen Follow-up/Referrals: Bess Song, [Primary Care Provider] - Diet: Regular Addtl Attending Provider Instructions: You were admitted to the hospital with right hip pain. CT of the hip showed severe osteoarthritis. Please continue with physical therapy at the rehab. You have a follow-up appointment with [facility](Dr. Basurto) on November 05 at 10:30 AM. All your medications are continued. Echocardiogram of the heart during the hospitalization showed improvement in your heart function with ejection fraction of 55 to 60%. Pending Studies at Discharge: No Stand-Alone Forms: [facility] Skilled Items Patient informed of condition?: Yes DNR: Yes Discharge Level of Care: Acute rehab Communicable Disease: No Discharge Prognosis: Stable Lines: None Urinary Catheter: No Medications and DC Order Prescriptions: Continued atorvastatin 10 mg tablet 10 mg PO Q2D alendronate 70 mg tablet 70 mg PO WK Rx Instructions: take on sundays with 8 ounces of water 30 min before 1st meal of day and remain upright for 30 min after taking tablet aspirin 81 mg Tablet,Delayed Release (Dr/Ec) 81 mg PO DAILY sertraline 25 mg Tablet 25 mg PO QAM oxycodone-acetaminophen 5-325 mg Tablet 1 tab PO .EVERY 4-6 HRS PRN (Reason: Pain) spironolactone 25 mg tablet 25 mg PO QAM furosemide 20 mg tablet 20 mg PO QAM Eliquis 5 mg tablet 5 mg PO BID tolterodine 2 mg capsule,extended release 24hr 2 mg PO QAM losartan 25 mg tablet 25 mg PO QAM metoprolol succinate 25 mg tablet extended release 24 hr 25 mg PO QAM lidocaine 4 % adhesive patch,medicated 1 patch topical DAILY Qty: 10 0RF Rx Instructions: may leave on for up to 12 hrs Discharge Orders: Discharge Order (Routine); Ordered 10/21/22 Ordered By: Aly Díaz Admission Data Admit Date/Time: 10/18/22 09:51 Attending Provider: Aly Díaz Admit Provider: Ayl Díaz Primary Care Provider: Bess Song Other Providers: Rick Harley ; Aly Díaz ; [facility]
[2022-10-21] MEDS: APIXABAN 5 MG TABLET PO SCH (10:07)
== END 2022-10-21 14:18 ==
LOC: ED 06:42 → 2N 09:51 → INTOOBSV 09:51 → 2N 10:52